=== PATIENT | male | born 1960 | race Caucasian/White ===

== ENCOUNTER 2018-12-04 18:59 | Inpatient (IN) | payer OTHER ==
--- NOTE | 2018-12-04 20:56 | PDOC ---
Attending Attestation - Resident Resident Name: Maria Fernanda Norris - ED Attending Attestation I have performed the following: I have examined & evaluated the patient, The case was reviewed & discussed with the resident, I agree w/resident's findings & plan, Exceptions are as noted - Medical Decision Making 12/04/18 23:[address] Lalo Lindsey and this pt was admitted to med/surg <Patti Dong - Last Filed: 12/04/18 23:14> - HPI HPI: 12/04/18 23:11 The patient is a 57 year old male with a history of lymphedema, DM, HLD, HTN, DVT, and depression who presents to the emergency department for evaluation of left lower extremity pain with redness and fever. Patient reports a 4 day history of fever. He reports increasing left leg redness and pain with minimal discharge. Patient states he uses his pumps and compression stockings. He endorses a several day history of shortness of breath and subjective chills as well as fevers. Denies chest pain, nausea, diarrhea, vomiting, dysuria, or headache. - Physicial Exam PE: 12/04/18 23:11 wnwd 57 y/o male in no acute distress head ncat neck supple Heart RRR. No gallops, murmurs, or rubs. lungs clear to auscultation bilaterally abd soft,nontender ext (+)Chronic venous stasis in both legs, (+)Lymphedema in both legs. (+)L leg and foot swollen, erythematous and tender. MAEx4 skin warm and dry,no rashes neuro A&Ox3,no gross focal neuro deficits - Medical Decision Making 12/04/18 23:11 Documentation prepared by Robert Berrios, acting as medical recruiter for Patti Dong MD. 12/04/18 23:[address] Lalo Lindsey at 23:14. <Robert Berrios - Last Filed: 12/04/18 23:26>
[2018-12-04] MEDS ORDERED: PIPERACILLIN/TAZOB 3.375 GM 3.375 GM in DEXTROSE 5%-WATER - 50 ML IVPB ONE (21:07)
[2018-12-04] MEDS ORDERED: VANCOMYCIN 1,000 MG in DEXTROSE 5%-WATER - 250 ML IVPB ONE (21:08)
--- NOTE | 2018-12-04 21:17 | PDOC ---
History of Present Illness - General Chief Complaint: Edema Stated Complaint: LT LEG PROBLEM Time Seen by Provider: 12/04/18 20:26 History Source: Patient - History of Present Illness Initial Comments: 12/04/18 21:12 Patient is a 57 y/o male with a history of lymphadema, HLD, DM, depression, HTN , and DVT who presents for fever and skin weeping. Patient notes he had fever over the weekend. He felt behind his left leg and noted it was oozing a bit. He followed up with wound care a month and a half ago. He regularly uses his pumps and compression stockings. He notes he hasn't had an episode of cellulitis for two years. He reports he has also been more short of breath recently. Denies chest pain, nausea, diarrhea, vomiting, dysuria, or headache. Past History - Past Medical History Allergies/Adverse Reactions: Allergies Allergy/AdvReac Type Severity Reaction Status Date / Time No Known Allergies Allergy Verified 12/04/18 19:06 Home Medications: Ambulatory Orders Hydrochlorothiazide [Hctz -] 25 mg PO DAILY #0 tablet 01/30/16 Rivaroxaban [Xarelto] 15 mg PO BID #0 tablet 01/30/16 Lisinopril [Prinivil] 1 tab PO DAILY 06/04/18 Metformin HCl [Glucophage] 1 tab PO DAILY 06/04/18 Rosuvastatin [Crestor -] 1 tab PO DAILY 06/04/18 Anemia: No Asthma: No Cancer: No Cardiac Disorders: No CVA: No COPD: No CHF: No Dementia: No Diabetes: Yes GI Disorders: No Disorders: No HTN: Yes Hypercholesterolemia: Yes Liver Disease: No Seizures: No Thyroid Disease: No - Suicide/Smoking/Psychosocial Hx Smoking History: Never smoked Have you smoked in the past 12 months: No Hx Alcohol Use: No Drug/Substance Use Hx: No Substance Use Type: None Hx Substance Use Treatment: No Review of Systems - Review of Systems Constitutional: Yes: Fever. No: Chills Respiratory: Yes: Shortness of Breath. No: Cough Cardiac (ROS): No: Chest Pain, Palpitations ABD/GI: No: Abdominal Distended, Diarrhea, Nausea, Vomiting : No: Burning Integumentary: Yes: Erythema Neurological: No: Headache, Numbness *Physical Exam - Vital Signs Last Vital Signs Temp Pulse Resp BP Pulse Ox 97.9 F 93 H 28 H 119/74 93 L 12/04/18 19:06 12/04/18 19:06 12/04/18 19:06 12/04/18 19:06 12/04/18 19:06 - Physical Exam Comments: 12/04/18 21:18 GENERAL: A&O x3, no acute distress, morbid obestity EYES: EOMI HEART: RRR, no murmurs, rubs, or gallops LUNGS: CTAL B/L ABD: soft, non tender, non distended EXTREMITIES: extensive non pitting edema L>R, pulses not felt, left foot warm and erythematous, back left ankle with skin weeping and erythema ED Treatment Course - LABORATORY CBC & Chemistry Diagram: 12/06/18 07:30 12/06/18 07:30 - RADIOLOGY Radiology Studies Ordered: Category Date Time Status CXRPORT [CHEST X-RAY PORTABLE*] [RAD] Stat Radiology 12/04/18 20:45 Ordered Medical Decision Making - Medical Decision Making 12/04/18 21:20 Vanc and Zosyn for cellulitis, f/u CBC and CMP, CXR for SOB 12/04/18 22:08 vitals satble WBC 13, CXR unlikely infiltrates will admit to PCP Dr. Lindsey *DC/Admit/Observation/Transfer Diagnosis at time of Disposition: Cellulitis of left leg - Discharge Dispostion Decision to Admit order: Yes - Referrals - Patient Instructions - Post Discharge Activity
[2018-12-04] MEDS ORDERED: PIPERACILLIN/TAZOB 3.375 GM 3.375 GM/50 ML BAG IVPB ONE (21:35)
[2018-12-04] MEDS ORDERED: VANCOMYCIN 1 GRAM (PRE-DOCKED) 1,000 MG/250 ML BAG IVPB ONE (21:35)
[2018-12-04 21:44] LABS: HEMATOCRIT 38.6 % (35.4-49); HEMOGLOBIN 12.9 GM/dL (11.7-16.9); MCH 27.8 pg (25.7-33.7); MCHC 33.3 g/dl (32.0-35.9); MEAN CELL VOLUME 83.5 fl (80-96); MEAN PLT VOLUME 8.7 fl (7.5-11.1); PLATELET COUNT 194 K/MM3 (134-434); RBC 4.62 M/mm3 (4.00-5.60); WHITE BLOOD COUNT 13.6 K/mm3 (4.0-10.0)
[2018-12-04 21:56] LABS: INR 1.48 (0.83-1.09); PROTHROMBIN TIME (PATIENT) 17.5 SEC (9.7-13.0)
[2018-12-04 22:04] LABS: ALBUMIN 2.8 g/dl (3.4-5.0); ALK PHOS 58 U/L (45-117); ANION GAP 6 MMOL/L (8-16); BILIRUBIN,TOTAL 0.3 mg/dL (0.2-1); BLOOD UREA NITROGEN 23 mg/dL (7-18); CALCIUM 8.1 mg/dL (8.5-10.1); CHLORIDE 102 mmol/L (98-107); CO2 30 mmol/L (21-32); CREATININE 1.1 mg/dL (0.55-1.3); GLUCOSE,RANDOM 118 mg/dL (74-106); POTASSIUM 4.1 mmol/L (3.5-5.1); SGOT/AST 23 U/L (15-37); SGPT/ALT 27 U/L (13-61); SODIUM 138 mmol/L (136-145); TOT PROT 6.5 g/dl (6.4-8.2)
[2018-12-04] MEDS ORDERED: HYDROCHLOROTHIAZIDE 25 MG TABLET (FP) PO ONE (23:31)
[2018-12-04] MEDS ORDERED: ACETAMINOPHEN 325 MG TABLET (FP) PO PRN (23:59)
[2018-12-05] MEDS ORDERED: HYDROCHLOROTHIAZIDE 25 MG TABLET (FP) ONE (00:15)
[2018-12-05 03:11] VITALS: BMI 60.6
[2018-12-05] MEDS ORDERED: PIPERACILLIN/TAZOBACTAM 3.375 GM VIAL IVPB ONE (05:28)
[2018-12-05] MEDS ORDERED: DEXTROSE 5%-WATER - 50 ML IVPB ONE (05:28)
[2018-12-05] MEDS ORDERED: PIPERACILLIN/TAZOB 3.375 GM 3.375 GM in DEXTROSE 5%-WATER - 50 ML IVPB ONE (06:00)
[2018-12-05] MEDS: metFORMIN HCL 500 MG TABLET (FP) PO SCH ×2 (06:21→17:13)
[2018-12-05 07:22] LABS: HEMATOCRIT 39.4 % (35.4-49); MCH 27.9 pg (25.7-33.7); MCHC 33.1 g/dl (32.0-35.9); MEAN CELL VOLUME 84.1 fl (80-96); MEAN PLT VOLUME 9.3 fl (7.5-11.1); PLATELET COUNT 191 K/MM3 (134-434); RBC 4.68 M/mm3 (4.00-5.60); RDW 16.3 % (11.9-15.9); WHITE BLOOD COUNT 13.9 K/mm3 (4.0-10.0)
[2018-12-05 07:41] LABS: ALBUMIN 2.8 g/dl (3.4-5.0); ALK PHOS 56 U/L (45-117); ANION GAP 7 MMOL/L (8-16); BILIRUBIN,TOTAL 0.4 mg/dL (0.2-1); BLOOD UREA NITROGEN 20 mg/dL (7-18); CALCIUM 8.7 mg/dL (8.5-10.1); CHLORIDE 99 mmol/L (98-107); CO2 30 mmol/L (21-32); GLUCOSE,RANDOM 140 mg/dL (74-106); POTASSIUM 3.6 mmol/L (3.5-5.1); SGOT/AST 20 U/L (15-37); SGPT/ALT 29 U/L (13-61); SODIUM 136 mmol/L (136-145); TOT PROT 6.7 g/dl (6.4-8.2)
--- NOTE | 2018-12-05 08:17 | CONSULT ---
- Consultation REQUESTING PROVIDER: CONSULT REQUEST: We have been asked to surgically evaluate this patient for ( cellulitis/dvt). PCP:Lalo Lindsey HISTORY OF PRESENT ILLNESS: 57 y/o M w/ PMHx lymphadema, HLD, DM, depression, HTN, and h/o DVT (axillary/femoral) now a/w fever and LLE cellulitis/skin weeping. Pt reports subjective fevers over the weekend. States he noted increasing swelling in his LLE as well as some oozing. Pt is a wound care patient and follows with Dr Magdaleno, last seen a month and a half ago (LLE treated with Calcium Alginate). Reports regular use of his lymphadema pump and compression stockings. Has h/o 2 prior admissions for IV abx for cellulitis over the past 2-3 years. Denies chest pain, nausea, diarrhea, vomiting, dysuria , or headache. Has had some sob over the past few days. PMHx: as above PSHx: denies Home Medications Medication Instructions Recorded Hydrochlorothiazide [Hctz -] 25 mg PO DAILY #0 tablet 01/30/16 Rivaroxaban [Xarelto] 15 mg PO BID #0 tablet 01/30/16 Lisinopril [Prinivil] 1 tab PO DAILY 06/04/18 Metformin HCl [Glucophage] 1 tab PO DAILY 06/04/18 Rosuvastatin [Crestor -] 1 tab PO DAILY 06/04/18 Allergies Allergy/AdvReac Type Severity Reaction Status Date / Time No Known Allergies Allergy Verified 12/04/18 19:06 REVIEW OF SYSTEMS: CONSTITUTIONAL: +fever CARDIOVASCULAR: Absent: chest pain, syncope RESPIRATORY: Absent: cough +shortness of breath GASTROINTESTINAL: Absent: abdominal pain PHYSICAL EXAM: GENERAL: Awake, alert, and fully oriented, in no acute distress. HEAD: Normal with no signs of trauma. LOWER EXTREMITIES: RLE with 2+ pitting edema to knee, no erythema no open wounds. LLE with edema and erythema from foot to mid calf, approx 4x4cm superficial ulcer to L lateral distal calf with minimal oozing. No crepitus, no palpable collections. Neuro: 5/5 b/l dorsi/plantar flexion, silt b/l. Vasc: Unable to appreciate pulses due to edema, feet warm, well perfused. Vital Signs Temperature 98.1 F 12/05/18 06:00 Pulse Rate 87 12/05/18 06:00 Respiratory Rate 20 12/05/18 06:00 Blood Pressure 129/58 L 12/05/18 06:00 O2 Sat by Pulse Oximetry (%) 92 L 12/05/18 02:45 Lab Results WBC 13.9 K/mm3 (4.0-10.0) H 12/05/18 06:00 RBC 4.68 M/mm3 (4.00-5.60) 12/05/18 06:00 Hgb 13.0 GM/dL (11.7-16.9) 12/05/18 06:00 Hct 39.4 % (35.4-49) 12/05/18 06:00 MCV 84.1 fl (80-96) 12/05/18 06:00 MCHC 33.1 g/dl (32.0-35.9) 12/05/18 06:00 RDW 16.3 % (11.9-15.9) H 12/05/18 06:00 Plt Count 191 K/MM3 (134-434) 12/05/18 06:00 Sodium 136 mmol/L (136-145) 12/05/18 06:00 Potassium 3.6 mmol/L (3.5-5.1) 12/05/18 06:00 Chloride 99 mmol/L (98-107) 12/05/18 06:00 Carbon Dioxide 30 mmol/L (21-32) 12/05/18 06:00 Anion Gap 7 MMOL/L (8-16) L 12/05/18 06:00 BUN 20 mg/dL (7-18) H 12/05/18 06:00 Creatinine 1.0 mg/dL (0.55-1.3) 12/05/18 06:00 Random Glucose 140 mg/dL (74-106) H 12/05/18 06:00 Calcium 8.7 mg/dL (8.5-10.1) 12/05/18 06:00 INR 1.48 (0.83-1.09) H 12/04/18 20:30 A/P: 57 y/o M w/ PMHx lymphadema, HLD, DM, depression, HTN, and h/o DVT ( axillary/femoral) now a/w fever and LLE cellulitis/skin weeping. LLE with cellulitis, skin weeping from superficial LLE wound. Afebrile with leukocytosis 13.9k. Venous duplex with no definite sonographic evidence of LLE DVT though PT vein was not visualized. -Continue Iv abx per ID -Strict LLE elevation while at rest -Calcium alginate to LLE wound -May repeat duplex once edema has subsided if concern for DVT (pt is on Xarelto) above d/w attending Dr Magdaleno
--- NOTE | 2018-12-05 09:35 | EKG ---
Test Reason : Blood Pressure : / mmHG Vent. Rate : 088 BPM Atrial Rate : 088 BPM P-R Int : 178 ms QRS Dur : 158 ms QT Int : 402 ms P-R-T Axes : 027 -43 084 degrees QTc Int : 486 ms NORMAL SINUS RHYTHM POSSIBLE LEFT ATRIAL ENLARGEMENT LEFT AXIS DEVIATION LEFT BUNDLE BRANCH BLOCK ABNORMAL ECG WHEN COMPARED WITH ECG OF 27-JAN-2016 10:18, NO SIGNIFICANT CHANGE WAS FOUND Confirmed by FOREIGN CHIRINOS, SELVIN ([id number]) on 12/05/2018 9:34:49 AM Referred By: Confirmed By:SELVIN CARRASQUILLO MD
[2018-12-05] MEDS ORDERED: ASPIRIN 81 MG CHEWABLE TABLETS PO SCH (10:00)
[2018-12-05] MEDS: ASPIRIN COATED 81 MG TABLET.EC PO SCH (10:03)
[2018-12-05] MEDS: LISINOPRIL 5 MG TABLET (FP) PO SCH (10:03)
[2018-12-05] MEDS ORDERED: PT OWN MED DRAWER 7, Y5N ONE (10:51)
[2018-12-05] MEDS: ALBUTEROL SO4 8 GM HFA INHALER IH PRN (10:55)
[2018-12-05] MEDS ORDERED: DEXTROSE 5%-WATER 100 ML IVPB ONE ×2 (10:56→17:02)
[2018-12-05] MEDS ORDERED: PIPERACILLIN/TAZOBACTAM 4.5 GM VIAL IVPB ONE ×2 (10:56→17:02)
[2018-12-05] MEDS: PIPERACILLIN/TAZOB 4.5 GM 4.5 GM in DEXTROSE 5%-WATER 100 ML IVPB SCH ×2 (10:58→17:14)
[2018-12-05] MEDS ORDERED: VANCOMYCIN HCL 1,500 MG in DEXTROSE 5%-WATER - 250 ML IVPB SCH (11:00)
--- NOTE | 2018-12-05 11:05 | PN ---
Progress Note (short form) - Note Progress Note: ID consult dictated 57 yo man morbidly obese with chronic lymphedema last hospitalized in 2016 for RLE DVT no recent admissions for cellulitis no recent outpatient antiibotics developed fever and chills Monday/Monday on Monday he noted his left calf was red and swollen he saw his PMD who referred him to the hospital no further fevers In ED noted to have swollen RLE with erythema WBC 13k given vancomycin and zosyn no blood cultures done cellulilis of the LLE no history of MRSA plan vancomycin and zosyn- prior cultures of LLE have included enterobacter, pseudomonas, group b strep and MSSA will order blood cultures as well suspect resolution will be slow given lymphedema Problem List - Problems (1) Cellulitis of left leg Code(s): L03.116 - CELLULITIS OF LEFT LOWER LIMB (2) Lymphedema Code(s): I89.0 - LYMPHEDEMA, NOT ELSEWHERE CLASSIFIED (3) Obesity Code(s): E66.9 - OBESITY, UNSPECIFIED Qualifiers: Body mass index: BMI 60.0-69.9
[2018-12-05] MEDS ORDERED: PHYTONADIONE 10 MG/1 ML AMP IM ONE (11:36)
[2018-12-05] MEDS: VANCOMYCIN HCL 1,500 MG in DEXTROSE 5%-WATER - 500 ML IVPB SCH ×2 (12:02→22:43)
--- NOTE | 2018-12-05 12:35 | HP ---
Admitting History and Physical - Admission Chief Complaint: pt came my office lt leg swelling pain 4 days. no other coplaints History Source: Family Member Limitations to Obtaining History: Other ( pickwicking syndrome) - Past Medical History Cardiovascular: Yes: HTN, Other (aortic anerysm 5 cm) Pulmonary: Yes: COPD, Sleep Apnea, Other (bob) Infectious Disease: Yes: Other (lt ;leg cellulitis) Musculoskeletal: Yes: Other (lymphodema) Endocrine: Yes: Diabetes Mellitus - Past Surgical History Past Surgical History: Yes: None - Smoking History Smoking history: Never smoked Have you smoked in the past 12 months: No - Alcohol/Substance Use Hx Alcohol Use: No History of Substance Use: reports: None - Social History ADL: Independent History of Recent Travel: No Home Medications - Allergies Allergies/Adverse Reactions: Allergies Allergy/AdvReac Type Severity Reaction Status Date / Time No Known Allergies Allergy Verified 12/04/18 19:06 - Home Medications Home Medications: Ambulatory Orders Hydrochlorothiazide [Hctz -] 25 mg PO DAILY #0 tablet 01/30/16 Rivaroxaban [Xarelto] 15 mg PO BID #0 tablet 01/30/16 Lisinopril [Prinivil] 1 tab PO DAILY 06/04/18 Metformin HCl [Glucophage] 1 tab PO DAILY 06/04/18 Rosuvastatin [Crestor -] 1 tab PO DAILY 06/04/18 Family Disease History - Family Disease History Family History: Unremarkable Review of Systems - Review of Systems Respiratory: reports: Snoring, SOB, SOB on Exertion Musculoskeletal: reports: Other (lt leg cellulitis) Physical Examination Vital Signs: Vital Signs Temperature 98.0 F 12/05/18 09:00 Pulse Rate 80 12/05/18 09:00 Respiratory Rate 20 12/05/18 09:00 Blood Pressure 107/65 12/05/18 09:00 O2 Sat by Pulse Oximetry (%) 92 L 12/05/18 02:45 Constitutional: Yes: Obese Eyes: Yes: WNL HENT: Yes: WNL Neck: Yes: WNL Respiratory: Yes: SOB on Exertion Gastrointestinal: Yes: WNL ...Rectal Exam: Yes: Deferred Renal/: Yes: WNL Breast(s): Yes: WNL, Skin Changes Extremities: Yes: Other (lt leg swelling on top of lymphodema) Edema: Yes Edema: LLE: 4+, RLE: 3+ Peripheral Pulses WNL: Yes Peripheral Pulses: Left Radial: 2+, Right Radial: 2+, Left Doralis Pedis: 2+, Right Dorsalis Pedis: 2+, Left Femoral: 2+, Right Femoral: 2+ Integumentary: Yes: WNL Wound/Incision: Yes: Other (lt leg ??weeping) Neurological: Yes: WNL ...Motor Strength: WNL Psychiatric: Yes: WNL Labs: CBC, BMP 12/05/18 06:00 12/05/18 06:00 Assessment/Plan vasc id to see pt cont lt leg tx and atibiotics iv cont all meds ay home xeralto dvt tx chk labs in am give vit k im for incresed inr???
--- NOTE | 2018-12-05 13:13 | PN ---
Progress Note, Physician History of Present Illness: pt had pos dna stool very obese needs to be scoped inpt spoke to dr sadi hale pnd to be home for pt cont all tx as is - Current Medication List Current Medications: Active Medications Acetaminophen (Tylenol -) 650 mg PO Q4H PRN PRN Reason: FEVER Albuterol Sulfate (Ventolin Hfa Inhaler -) 2 puff IH Q4H PRN PRN Reason: SHORT OF BREATH/WHEEZING Last Admin: 12/05/18 10:55 Dose: 2 puff Aspirin (Ecotrin -) 81 mg PO DAILY [facility]O Last Admin: 12/05/18 10:03 Dose: 81 mg Piperacillin Sod/Tazobactam (Sod 4.5 gm/ Dextrose) 100 mls @ 200 mls/hr IVPB Q8H-IV MAYO; Protocol Last Admin: 12/05/18 10:58 Dose: 200 mls/hr Vancomycin HCl 1,500 mg/ (Dextrose) 500 mls @ 125 mls/hr IVPB Q12H MAYO; Protocol Last Admin: 12/05/18 12:02 Dose: 125 mls/hr Lisinopril (Prinivil) 5 mg PO DAILY [facility] Last Admin: 12/05/18 10:03 Dose: 5 mg Metformin HCl (Glucophage -) 1,000 mg PO BID@0700,1630 MAYO Last Admin: 12/05/18 06:21 Dose: 1,000 mg Rivaroxaban (Xarelto -) 20 mg PO DAILY@1800 MAYO Rosuvastatin Calcium (Crestor -) 20 mg PO HS MAYO - Objective Vital Signs: Vital Signs Temperature 98.0 F 12/05/18 09:00 Pulse Rate 80 12/05/18 09:00 Respiratory Rate 20 12/05/18 09:00 Blood Pressure 107/65 12/05/18 09:00 O2 Sat by Pulse Oximetry (%) 92 L 12/05/18 02:45 Labs: CBC, BMP 12/05/18 06:00 12/05/18 06:00 INR, PTT INR 1.48 (0.83-1.09) H 12/04/18 20:30
--- NOTE | 2018-12-05 14:03 | CONS ---
DATE OF CONSULTATION: DATE OF DICTATION: 12/05/2018 INFECTIOUS DISEASE CONSULTATION REQUESTED BY: Lalo Lindsey MD This is a 57-year-old man who is morbidly obese. He has chronic lymphedema. He has a history of right lower extremity DVT in the past. He has a history of cellulitis of his legs. Last admission for this was 2 years ago in 2016. He developed fevers and chills over the weekend, Monday into Monday. On Monday, he noted that his left leg and calf were red and swollen. He went to see his PMD who advised admission. He is currently resting comfortably. He denies any cough, any nausea, vomiting, diarrhea, or dysuria. His fevers reports have resolved. He notes that he is slightly more short of breath than usual. ALLERGIES: He has no known drug allergies. MEDICATIONS: Include hydrochlorothiazide, Xarelto, Prinivil, Glucophage, and Crestor. PAST MEDICAL HISTORY: Notable for diabetes, hypertension, hypercholesterolemia, and morbid obesity. REVIEW OF SYSTEMS: As per HPI. There is no history of any travel. SOCIAL HISTORY: Lives with his daughter. They have cats. He has had cat scratches on his arms but not on his legs. PHYSICAL EXAMINATION: Vital Signs: Temperature is 98.4, pulse of 80, blood pressure 107/66, respiratory rate is 20, saturating 92% on room air. He weighs 175 kg. HEENT: He is normocephalic. His eyes are anicteric. Neck: Supple. Lungs: Diminished breath sounds at the bases. Heart: He has distant heart sounds. Abdomen: His abdomen is large. I cannot appreciate any organomegaly. Extremities: Left leg is more swollen than the right below the knee. He has diffuse erythema and swelling extending to his foot. LABORATORY DATA: Notable for white count of 13.9, hemoglobin 13, platelets are 191. INR is 1.4. BUN 20, creatinine 1 with normal LFTs. IMAGING STUDIES: Duplex of the leg was done that shows no DVT. IN SUMMARY: This is a morbidly obese 57-year-old man with chronic lymphedema of his legs. He does use a lymphedema pump at home twice a day for the last year which he says has been very helpful. Fever over the weekend with acute onset of cellulitis of the left lower extremity. There is no history of methicillin-resistant Staphylococcus aureus, but given the acute onset of fever in this setting and the erythema and edema, we will cover for methicillin-resistant Staphylococcus aureus as well. He was given vancomycin and Zosyn in the emergency room. No blood cultures were done. I would suggest at this time we continue vancomycin and Zosyn. Prior cultures have included Enterobacter pseudomonas, group B streptococcus, and Staphylococcus. We will order blood cultures. I suspect the resolution of his cellulitis will be quite slow given the degree of lymphedema. He does have an area of maceration behind his left lower leg in the area of the ankle, but there are no open lesions at this time. Further recommendations to follow. Alma Rosa [id number]
[2018-12-05] MEDS: RIVAROXABAN 20 MG TABLET PO SCH (17:00)
[2018-12-05] MEDS: ROSUVASTATIN CA 20 MG TABLET (FP) PO SCH (21:00)
[2018-12-06] MEDS ORDERED: DEXTROSE 5%-WATER 100 ML IVPB ONE ×4 (00:47→23:45)
[2018-12-06] MEDS ORDERED: PIPERACILLIN/TAZOBACTAM 4.5 GM VIAL IVPB ONE ×4 (00:47→23:44)
[2018-12-06] MEDS: PIPERACILLIN/TAZOB 4.5 GM 4.5 GM in DEXTROSE 5%-WATER 100 ML IVPB SCH ×3 (03:00→17:22)
[2018-12-06] MEDS: metFORMIN HCL 500 MG TABLET (FP) PO SCH ×2 (06:43→17:22)
[2018-12-06 08:23] LABS: BASO % 0.7 % (0-2.0); HEMATOCRIT 41.5 % (35.4-49); HEMOGLOBIN 12.8 GM/dL (11.7-16.9); MCH 26.1 pg (25.7-33.7); MEAN CELL VOLUME 84.5 fl (80-96); MONO % 14.2 % (3.8-10.2); NEUT % 74.1 % (42.8-82.8); PLATELET COUNT 203 K/MM3 (134-434); RBC 4.91 M/mm3 (4.00-5.60); RDW 17.2 % (11.9-15.9); WHITE BLOOD COUNT 13.9 K/mm3 (4.0-10.0)
[2018-12-06 08:46] LABS: ANION GAP 4 MMOL/L (8-16); BLOOD UREA NITROGEN 19 mg/dL (7-18); CHLORIDE 99 mmol/L (98-107); CO2 31 mmol/L (21-32); CREATININE 0.9 mg/dL (0.55-1.3); GLUCOSE,RANDOM 111 mg/dL (74-106); POTASSIUM 4.3 mmol/L (3.5-5.1); SODIUM 135 mmol/L (136-145)
--- NOTE | 2018-12-06 08:58 | CON.GI ---
Consult Consult Specialty:: GI Referred by:: Dr. Lalo Lindsey Reason for Consultation:: In-patient colonoscopy - History of Present Illness History of Present Illness: Patient is a 57 y/o male with past medical history of HTN, morbid obesity, aortic aneursym 5cm, COPD, sleep apnea, Lymphedema, DM. Patient was admitted to [facility] for Lt leg cellulitis. Consulted for possible in-patient colonoscopy due to patient extensive medical history. Patient has not had a previous colonoscopy. As for family history patient denies stomach cancer but believes father might have had Colon CA. Patient complains of rectal bleeding noted when straining with BM and blood in stool associated with rectal pain with last episode being 1 week ago. Patient denies dysphagia, heartburn, nausea, vomiting , abdominal pain. Denies melena or abnormal weight loss. - History Source History Provided By: Patient Limitations to Obtaining History: No Limitations - Past Medical History Cardio/Vascular: Yes: HTN, Other (aortic anerysm 5 cm) Pulmonary: Yes: COPD, Sleep Apnea, Other (bob) Infectious Disease: Yes: Other (lt ;leg cellulitis) Musculoskeletal: Yes: Other (lymphodema) Endocrine: Yes: Diabetes Mellitus - Past Surgical History Past Surgical History: Yes: None - Alcohol/Substance Use Hx Alcohol Use: No History of Substance Use: reports: None - Smoking History Smoking history: Never smoked Have you smoked in the past 12 months: No - Social History ADL: Independent History of Recent Travel: No Home Medications - Allergies Allergies/Adverse Reactions: Allergies Allergy/AdvReac Type Severity Reaction Status Date / Time No Known Allergies Allergy Verified 12/04/18 19:06 - Home Medications Home Medications: Ambulatory Orders Hydrochlorothiazide [Hctz -] 25 mg PO DAILY #0 tablet 01/30/16 Rivaroxaban [Xarelto] 15 mg PO BID #0 tablet 01/30/16 Lisinopril [Prinivil] 1 tab PO DAILY 06/04/18 Metformin HCl [Glucophage] 1 tab PO DAILY 06/04/18 Rosuvastatin [Crestor -] 1 tab PO DAILY 06/04/18 Family Disease History - Family Disease History Family Disease History: CA: Father (possible Colon CA) Review of Systems - Review of Systems Constitutional: reports: No Symptoms Eyes: reports: No Symptoms HENT: reports: No Symptoms Neck: reports: No Symptoms Cardiovascular: reports: No Symptoms Respiratory: reports: SOB Gastrointestinal: reports: Rectal Bleeding Genitourinary: reports: No Symptoms Breasts: reports: No Symptoms Reported Musculoskeletal: reports: No Symptoms Integumentary: reports: Other (cellulitis) Neurological: reports: No Symptoms Endocrine: reports: No Symptoms Hematology/Lymphatic: reports: No Symptoms Psychiatric: reports: No Symptoms Physical Exam-GI Vital Signs: Vital Signs Temperature 98.3 F 12/06/18 06:22 Pulse Rate 73 12/06/18 06:22 Respiratory Rate 22 H 12/06/18 06:22 Blood Pressure 136/78 12/06/18 06:22 O2 Sat by Pulse Oximetry (%) 90 L 12/05/18 21:00 Constitutional: Yes: No Distress, Calm, Obese Eyes: Yes: Conjunctiva Clear HENT: Yes: Atraumatic Cardiovascular: Yes: Regular Rate and Rhythm Respiratory: Yes: Diminished, On Nasal O2, SOB on Exertion Gastrointestinal Inspection: Yes: WNL. No: Ascites, Distention, Hernia, Scars, Other ...Auscultate: Yes: Normoactive Bowel Sounds. No: Hyperactive Bowel Sounds, Hypoactive Bowel Sounds, No Bowel Sounds, Other ...Palpate: Yes: Soft. No: Firm/Rigid, Guarding, Hepatomegaly, Mass, Pulsatile Mass, Splenomegaly, Tenderness, Tenderness, Epigastium, Tenderness, Rebound, Other ...Percussion: Yes: Tympanitic. No: Dullness, Fluid Wave, Other Edema: Yes (lower extremities) Neurological: Yes: Alert, Oriented Psychiatric: Yes: Alert, Oriented Labs: CBC, BMP 12/06/18 07:30 12/06/18 07:30 INR, PTT INR 1.48 (0.83-1.09) H 12/04/18 20:30 Active Medications Generic Name Dose Route Start Last Admin Trade Name Freq PRN Reason Stop Dose Admin Acetaminophen 650 mg 12/04/18 23:59 Tylenol - PO Q4H PRN FEVER Albuterol Sulfate 2 puff 12/04/18 23:31 12/05/18 10:55 Ventolin Hfa Inhaler - IH 2 puff Q4H PRN Administration SHORT OF BREATH/WHEEZING Aspirin 81 mg 12/05/18 10:00 12/05/18 10:03 Ecotrin - PO 81 mg DAILY MAYO Administration Piperacillin Sod/Tazobactam 100 mls @ 200 mls/hr 12/05/18 10:45 12/06/18 03: 00 Sod 4.5 gm/ Dextrose IVPB 200 mls/hr Q8H-IV MAYO Administration Protocol Vancomycin HCl 1,500 mg/ 500 mls @ 125 mls/hr 12/05/18 11:00 12/05/18 22:43 Dextrose IVPB 125 mls/hr Q12H MAYO Administration Protocol Lisinopril 5 mg 12/05/18 10:00 12/05/18 10:03 Prinivil PO 5 mg DAILY MAYO Administration Metformin HCl 1,000 mg 12/05/18 07:00 12/06/18 06:43 Glucophage - PO 1,000 mg BID@0700,1630 MAYO Administration Rivaroxaban 20 mg 12/05/18 18:00 12/05/18 17:00 Xarelto - PO Not Given DAILY@1800 MAYO Rosuvastatin Calcium 20 mg 12/05/18 22:00 12/05/18 21:00 Crestor - PO 20 mg HS MAYO Administration Problem List - Problems (1) Colon cancer screening Assessment/Plan: >Patient is scheduled for colonoscopy at [facility] on 12/23/[address] Carlos Perez Code(s): Z12.11 - ENCOUNTER FOR SCREENING FOR MALIGNANT NEOPLASM OF COLON
[2018-12-06] MEDS: LISINOPRIL 5 MG TABLET (FP) PO SCH (10:18)
[2018-12-06] MEDS: ASPIRIN COATED 81 MG TABLET.EC PO SCH (10:18)
[2018-12-06] MEDS: ALBUTEROL SO4 8 GM HFA INHALER IH PRN (10:30)
--- NOTE | 2018-12-06 10:45 | PN ---
Progress Note, Physician Chief Complaint: o 2 sat 80 at rest no o2 colon[facility] 3 16 [facility] pulm consult - Current Medication List Current Medications: Active Medications Acetaminophen (Tylenol -) 650 mg PO Q4H PRN PRN Reason: FEVER Albuterol Sulfate (Ventolin Hfa Inhaler -) 2 puff IH Q4H PRN PRN Reason: SHORT OF BREATH/WHEEZING Last Admin: 12/06/18 10:30 Dose: 2 puff Aspirin (Ecotrin -) 81 mg PO DAILY [facility] Last Admin: 12/06/18 10:18 Dose: 81 mg Piperacillin Sod/Tazobactam (Sod 4.5 gm/ Dextrose) 100 mls @ 200 mls/hr IVPB Q8H-IV [facility]; Protocol Last Admin: 12/06/18 10:18 Dose: 200 mls/hr Vancomycin HCl 1,500 mg/ (Dextrose) 500 mls @ 125 mls/hr IVPB Q12H [facility]; Protocol Last Admin: 12/05/18 22:43 Dose: 125 mls/hr Lisinopril (Prinivil) 5 mg PO DAILY [facility] Last Admin: 12/06/18 10:18 Dose: 5 mg Metformin HCl (Glucophage -) 1,000 mg PO BID@0700,1630 [facility] Last Admin: 12/06/18 06:43 Dose: 1,000 mg Rivaroxaban (Xarelto -) 20 mg PO DAILY@1800 [facility] Last Admin: 12/05/18 17:00 Dose: Not Given Rosuvastatin Calcium (Crestor -) 20 mg PO HS [facility] Last Admin: 12/05/18 21:00 Dose: 20 mg - Objective Vital Signs: Vital Signs Temperature 98.3 F 12/06/18 06:22 Pulse Rate 83 12/06/18 10:00 Respiratory Rate 20 12/06/18 10:00 Blood Pressure 127/75 12/06/18 10:00 O2 Sat by Pulse Oximetry (%) 90 L 12/05/18 21:00 Labs: CBC, BMP 12/06/18 07:30 12/06/18 07:30 INR, PTT INR 1.48 (0.83-1.09) H 12/04/18 20:30
--- NOTE | 2018-12-06 11:08 | CON.PULM ---
Consult Consult Specialty:: PULMONARY Referred by:: Dr Lindsey Reason for Consultation:: hypoxia - History of Present Illness Chief Complaint: leg swelling History of Present Illness: 57yo male with h/o HTN, DM, hyperlipidemia, lymphedema, h/o DVT who was admitted for fevers and leg swelling. Noted to have cellulitis, started on antibiotics. During admission, noted to be hypoxic on room air. He does not currently have home O2. He denies any history of asthma or COPD. He is a never smoker. He had a sleep study in April 2018 showing severe obstructive sleep apnea with AHI 81 and desaturations down to 67%. Has not received his CPAP yet, recommended settings 20cm H20 although still had apneic events on these settings. He denies shortness of breath or chest pain. No cough or wheezing. - History Source History Provided By: Patient, Medical Record Limitations to Obtaining History: No Limitations - Past Medical History Cardio/Vascular: Yes: HTN, Other (aortic anerysm 5 cm) Pulmonary: Yes: COPD, Sleep Apnea, Other (bob) Infectious Disease: Yes: Other (lt ;leg cellulitis) Musculoskeletal: Yes: Other (lymphodema) Endocrine: Yes: Diabetes Mellitus - Past Surgical History Past Surgical History: Yes: None - Alcohol/Substance Use Hx Alcohol Use: No History of Substance Use: reports: None - Smoking History Smoking history: Never smoked Have you smoked in the past 12 months: No - Social History ADL: Independent History of Recent Travel: No Home Medications - Allergies Allergies/Adverse Reactions: Allergies Allergy/AdvReac Type Severity Reaction Status Date / Time No Known Allergies Allergy Verified 12/04/18 19:06 - Home Medications Home Medications: Ambulatory Orders Hydrochlorothiazide [Hctz -] 25 mg PO DAILY #0 tablet 01/30/16 Rivaroxaban [Xarelto] 15 mg PO BID #0 tablet 01/30/16 Lisinopril [Prinivil] 1 tab PO DAILY 06/04/18 Metformin HCl [Glucophage] 1 tab PO DAILY 06/04/18 Rosuvastatin [Crestor -] 1 tab PO DAILY 06/04/18 Family Disease History - Family Disease History Family Disease History: CA: Father (possible Colon CA) Review of Systems - Review of Systems Constitutional: reports: Weakness. denies: Chills, Fever Eyes: denies: Recent Change in Vision HENT: denies: Nasal Congestion, Throat Pain Neck: denies: Stiffness, Tenderness Cardiovascular: reports: Edema. denies: Chest Pain, Palpitations, Shortness of Breath Respiratory: denies: Cough, Hemoptysis, Wheezing Gastrointestinal: denies: Abdominal Pain, Nausea, Vomiting Genitourinary: denies: Dysuria, Hematuria Neurological: denies: Dizziness, Headache Endocrine: denies: Unexplained Weight Loss Physical Exam Vital Sings: Vital Signs Temperature 98.3 F 12/06/18 06:22 Pulse Rate 83 12/06/18 10:00 Respiratory Rate 20 12/06/18 10:00 Blood Pressure 127/75 12/06/18 10:00 O2 Sat by Pulse Oximetry (%) 90 L 12/05/18 21:00 Constitutional: Yes: Calm Eyes: Yes: Conjunctiva Clear, EOM Intact HENT: Yes: Atraumatic, Normocephalic Neck: Yes: Supple, Trachea Midline Cardiovascular: Yes: Regular Rate and Rhythm Respiratory: Yes: Diminished (distant breath sounds). No: Wheezes ...Clubbing: No Gastrointestinal: Yes: Normal Bowel Sounds, Soft, Abdomen, Obese. No: Tenderness Edema: Yes Neurological: Yes: Alert, Oriented Labs: CBC, BMP 12/06/18 07:30 12/06/18 07:30 Imaging - Results Chest X-ray: Report Reviewed, Image Reviewed (cardiomegaly, no infiltrates) Problem List - Problems (1) Cellulitis of left leg Code(s): L03.116 - CELLULITIS OF LEFT LOWER LIMB (2) Obesity Code(s): E66.9 - OBESITY, UNSPECIFIED Qualifiers: Body mass index: BMI 60.0-69.9 (3) HTN (hypertension) Code(s): I10 - ESSENTIAL (PRIMARY) HYPERTENSION (4) Lymphedema Code(s): I89.0 - LYMPHEDEMA, NOT ELSEWHERE CLASSIFIED (5) Type 2 diabetes mellitus with other skin ulcer Code(s): E11.622 - TYPE 2 DIABETES MELLITUS WITH OTHER SKIN ULCER; L98.499 - NON -PRESSURE CHRONIC ULCER OF SKIN OF SITES W UNSP SEVERITY Assessment/Plan Cellulitis HTN DM Hyperlipidemia h/o DVT Morbid Obesity Severe Obstructive Sleep Apnea Likely Chronic Hypoxic Respiratory Failure Likely Obesity Hypoventilation Syndrome - continue antibiotics - will need home O2 to keep SpO2 >90% - check ABG - will need home CPAP or BiPAP pending above ABG - continue anticoagulation Thank you for this consult Albert Pierson MD
[2018-12-06] MEDS: VANCOMYCIN HCL 1,500 MG in DEXTROSE 5%-WATER - 500 ML IVPB SCH ×3 (11:13→22:31)
--- NOTE | 2018-12-06 17:06 | PN ---
Progress Note (short form) - Note Progress Note: no complaints Vital Signs Period Temp Pulse Resp BP Sys/Sanz Pulse Ox Last 24 Hr 97.5 F-98.3 F 73-83 20-22 117-142/55-78 90-93 cor-rrr lungs clear ext less erythema of the LLE CBC, BMP 12/06/18 07:30 12/06/18 07:30 Microbiology 12/05/18 11:20 Blood - Peripheral Venous Blood Culture - Preliminary NO GROWTH OBTAINED AFTER 24 HOURS, INCUBATION TO CONTINUE FOR 4 DAYS. 12/05/18 11:30 Blood - Peripheral Venous Blood Culture - Preliminary NO GROWTH OBTAINED AFTER 24 HOURS, INCUBATION TO CONTINUE FOR 4 DAYS. a/p cellulilis of the LLE improving continue vanco/zosyn for vanco trough in am morbid obesity OSAS suspect resolution will be slow given lymphedema Problem List - Problems (1) Cellulitis of left leg Code(s): L03.116 - CELLULITIS OF LEFT LOWER LIMB (2) Lymphedema Code(s): I89.0 - LYMPHEDEMA, NOT ELSEWHERE CLASSIFIED (3) Obesity Code(s): E66.9 - OBESITY, UNSPECIFIED Qualifiers: Body mass index: BMI 60.0-69.9
[2018-12-06] MEDS: RIVAROXABAN 20 MG TABLET PO SCH (17:22)
[2018-12-06] MEDS: ROSUVASTATIN CA 20 MG TABLET (FP) PO SCH (22:14)
[2018-12-07] MEDS: PIPERACILLIN/TAZOB 4.5 GM 4.5 GM in DEXTROSE 5%-WATER 100 ML IVPB SCH ×3 (01:26→18:11)
[2018-12-07] MEDS: metFORMIN HCL 500 MG TABLET (FP) PO SCH ×2 (06:23→18:10)
[2018-12-07 08:01] LABS: INR 1.57 (0.83-1.09); PROTHROMBIN TIME (PATIENT) 18.6 SEC (9.7-13.0)
[2018-12-07 08:02] LABS: BASO % 0.2 % (0-2.0); EOS % 0.6 % (0-4.5); HEMATOCRIT 40.2 % (35.4-49); HEMOGLOBIN 12.6 GM/dL (11.7-16.9); LYMPH % 8.2 % (8-40); MCH 26.3 pg (25.7-33.7); MCHC 31.3 g/dl (32.0-35.9); MEAN CELL VOLUME 83.9 fl (80-96); MEAN PLT VOLUME 8.9 fl (7.5-11.1); MONO % 9.6 % (3.8-10.2); NEUT % 81.4 % (42.8-82.8); PLATELET COUNT 233 K/MM3 (134-434); RBC 4.79 M/mm3 (4.00-5.60); RDW 16.6 % (11.9-15.9); WHITE BLOOD COUNT 13.8 K/mm3 (4.0-10.0)
[2018-12-07 08:23] LABS: ANION GAP 9 MMOL/L (8-16); BLOOD UREA NITROGEN 16 mg/dL (7-18); CHLORIDE 98 mmol/L (98-107); CO2 30 mmol/L (21-32); CREATININE 0.9 mg/dL (0.55-1.3); GLUCOSE,RANDOM 120 mg/dL (74-106); POTASSIUM 4.1 mmol/L (3.5-5.1); SODIUM 137 mmol/L (136-145)
[2018-12-07] MEDS ORDERED: DEXTROSE 5%-WATER 100 ML IVPB ONE ×2 (09:27→18:05)
[2018-12-07] MEDS ORDERED: PIPERACILLIN/TAZOBACTAM 4.5 GM VIAL IVPB ONE ×2 (09:27→18:05)
[2018-12-07] MEDS: LISINOPRIL 5 MG TABLET (FP) PO SCH (09:29)
[2018-12-07] MEDS: ASPIRIN COATED 81 MG TABLET.EC PO SCH (09:29)
[2018-12-07] MEDS ORDERED: PT OWN MED DRAWER 7, Y5N ONE ×4 (12:04→21:28)
[2018-12-07] MEDS: VANCOMYCIN HCL 1,500 MG in DEXTROSE 5%-WATER - 500 ML IVPB SCH ×2 (13:04→22:27)
--- NOTE | 2018-12-07 13:23 | PN ---
Progress Note, Physician Chief Complaint: feels better vss lt leg slght improvment - Current Medication List Current Medications: Active Medications Acetaminophen (Tylenol -) 650 mg PO Q4H PRN PRN Reason: FEVER Albuterol Sulfate (Ventolin Hfa Inhaler -) 2 puff IH Q4H PRN PRN Reason: SHORT OF BREATH/WHEEZING Last Admin: 12/06/18 10:30 Dose: 2 puff Aspirin (Ecotrin -) 81 mg PO DAILY [facility] Last Admin: 12/07/18 09:29 Dose: 81 mg Piperacillin Sod/Tazobactam (Sod 4.5 gm/ Dextrose) 100 mls @ 200 mls/hr IVPB Q8H-IV [facility]; Protocol Last Admin: 12/07/18 09:29 Dose: 200 mls/hr Vancomycin HCl 1,500 mg/ (Dextrose) 500 mls @ 125 mls/hr IVPB Q12H [facility]; Protocol Last Admin: 12/07/18 13:04 Dose: 125 mls/hr Lisinopril (Prinivil) 5 mg PO DAILY [facility] Last Admin: 12/07/18 09:29 Dose: 5 mg Metformin HCl (Glucophage -) 1,000 mg PO BID@0700,1630 [facility] Last Admin: 12/07/18 06:23 Dose: 1,000 mg Rivaroxaban (Xarelto -) 20 mg PO DAILY@1800 [facility] Last Admin: 12/06/18 17:22 Dose: 20 mg Rosuvastatin Calcium (Crestor -) 20 mg PO HS [facility] Last Admin: 12/06/18 22:14 Dose: 20 mg - Objective Vital Signs: Vital Signs Temperature 98.1 F 12/07/18 09:24 Pulse Rate 84 12/07/18 09:24 Respiratory Rate 20 12/07/18 09:24 Blood Pressure 134/64 12/07/18 09:24 O2 Sat by Pulse Oximetry (%) 93 L 12/06/18 21:00 Constitutional: Yes: Well Nourished Eyes: Yes: WNL HENT: Yes: WNL Neck: Yes: WNL Cardiovascular: Yes: WNL Respiratory: Yes: On Nasal O2 Gastrointestinal: Yes: WNL ...Rectal Exam: Yes: Deferred Genitourinary: Yes: WNL Breast(s): Yes: WNL Musculoskeletal: Yes: WNL Extremities: Yes: Other (no change) Peripheral Pulses WNL: Yes Integumentary: Yes: WNL Wound/Incision: Yes: Clean/Dry Neurological: Yes: WNL ...Motor Strength: WNL Psychiatric: Yes: WNL Labs: CBC, BMP 12/07/18 07:00 12/07/18 07:00 INR, PTT INR 1.57 (0.83-1.09) H 12/07/18 07:00 Assessment/Plan add lama ics? inhaler pulm f/u cont axb as is
--- NOTE | 2018-12-07 13:49 | PN ---
Progress Note, Physician History of Present Illness: PULMONARY ALERT,COMFORTABLE,OOB-CHAIR,-RESP DISTRESS,O2 SAT 96% ON NASAL CANNULA - Current Medication List Current Medications: Active Medications Acetaminophen (Tylenol -) 650 mg PO Q4H PRN PRN Reason: FEVER Albuterol Sulfate (Ventolin Hfa Inhaler -) 2 puff IH Q4H PRN PRN Reason: SHORT OF BREATH/WHEEZING Last Admin: 12/06/18 10:30 Dose: 2 puff Aspirin (Ecotrin -) 81 mg PO DAILY [facility] Last Admin: 12/07/18 09:29 Dose: 81 mg Piperacillin Sod/Tazobactam (Sod 4.5 gm/ Dextrose) 100 mls @ 200 mls/hr IVPB Q8H-IV [facility]; Protocol Last Admin: 12/07/18 09:29 Dose: 200 mls/hr Vancomycin HCl 1,500 mg/ (Dextrose) 500 mls @ 125 mls/hr IVPB Q12H [facility]; Protocol Last Admin: 12/07/18 13:04 Dose: 125 mls/hr Lisinopril (Prinivil) 5 mg PO DAILY [facility] Last Admin: 12/07/18 09:29 Dose: 5 mg Metformin HCl (Glucophage -) 1,000 mg PO BID@0700,1630 [facility] Last Admin: 12/07/18 06:23 Dose: 1,000 mg Rivaroxaban (Xarelto -) 20 mg PO DAILY@1800 [facility] Last Admin: 12/06/18 17:22 Dose: 20 mg Rosuvastatin Calcium (Crestor -) 20 mg PO HS [facility] Last Admin: 12/06/18 22:14 Dose: 20 mg Tiotropium [place] (Spiriva Respimat) 2 puff IH DAILY [facility] - Objective Vital Signs: Vital Signs Temperature 98.1 F 12/07/18 09:24 Pulse Rate 84 12/07/18 09:24 Respiratory Rate 20 12/07/18 09:24 Blood Pressure 134/64 12/07/18 09:24 O2 Sat by Pulse Oximetry (%) 93 L 12/06/18 21:00 Constitutional: Yes: Obese Eyes: Yes: WNL HENT: Yes: WNL Neck: Yes: WNL Cardiovascular: Yes: Regular Rate and Rhythm, S1, S2 Respiratory: Yes: Diminished Gastrointestinal: Yes: Normal Bowel Sounds, Soft, Abdomen, Obese Extremities: Yes: WNL Edema: Yes Labs: CBC, BMP 12/07/18 07:00 12/07/18 07:00 INR, PTT INR 1.57 (0.83-1.09) H 12/07/18 07:00 Assessment/Plan Problem List - Problems (1) Cellulitis of left leg Code(s): L03.116 - CELLULITIS OF LEFT LOWER LIMB (2) Obesity Code(s): E66.9 - OBESITY, UNSPECIFIED Qualifiers: Body mass index: BMI 60.0-69.9 (3) HTN (hypertension) Code(s): I10 - ESSENTIAL (PRIMARY) HYPERTENSION (4) Lymphedema Code(s): I89.0 - LYMPHEDEMA, NOT ELSEWHERE CLASSIFIED (5) Type 2 diabetes mellitus with other skin ulcer Code(s): E11.622 - TYPE 2 DIABETES MELLITUS WITH OTHER SKIN ULCER; L98.499 - NON -PRESSURE CHRONIC ULCER OF SKIN OF SITES W UNSP SEVERITY Assessment/Plan Cellulitis HTN DM Hyperlipidemia h/o DVT Morbid Obesity Severe Obstructive Sleep Apnea Likely Chronic Hypoxic Respiratory Failure Likely Obesity Hypoventilation Syndrome - continue antibiotics - will need home O2 to keep SpO2 >90% - ABG pending - will need home CPAP or BiPAP pending above ABG - continue anticoagulation DR FLORES
[2018-12-07 16:14] LABS: ARTERIAL BLD GAS O2 SATURATION 88.2 % (95-98); ARTERIAL BLOOD GAS BASE EXCESS 4.3 meq/l (-2-2); ARTERIAL BLOOD GAS PCO2 55.2 mmHg (35-45); ARTERIAL BLOOD GAS PO2 56.1 mmHg (80-105); ARTERIAL BLOOD GAS pH 7.36 (7.35-7.45)
--- NOTE | 2018-12-07 16:16 | PN ---
Progress Note (short form) - Note Progress Note: no complaints Vital Signs Period Temp Pulse Resp BP Sys/Sanz Pulse Ox Last 24 Hr 97.3 F-98.8 F 72-84 20-22 105-134/49-77 93-97 cor-rrr lungs clear abd soft,nt ext no edema CBC, BMP 12/07/18 07:00 12/07/18 07:00 Microbiology 12/05/18 11:20 Blood - Peripheral Venous Blood Culture - Preliminary NO GROWTH OBTAINED AFTER 48 HOURS, INCUBATION TO CONTINUE FOR 3 DAYS. 12/05/18 11:30 Blood - Peripheral Venous Blood Culture - Preliminary NO GROWTH OBTAINED AFTER 48 HOURS, INCUBATION TO CONTINUE FOR 3 DAYS. vanco trough 11.7 a/p cellulilis of the LLE improving continue vanco/zosyn morbid obesity OSAS suspect resolution will be slow given lymphedema Problem List - Problems (1) Cellulitis of left leg Code(s): L03.116 - CELLULITIS OF LEFT LOWER LIMB (2) Lymphedema Code(s): I89.0 - LYMPHEDEMA, NOT ELSEWHERE CLASSIFIED (3) Obesity Code(s): E66.9 - OBESITY, UNSPECIFIED Qualifiers: Body mass index: BMI 60.0-69.9
[2018-12-07] MEDS: RIVAROXABAN 20 MG TABLET PO SCH (18:10)
[2018-12-07] MEDS: ROSUVASTATIN CA 20 MG TABLET (FP) PO SCH (22:27)
[2018-12-08] MEDS ORDERED: PIPERACILLIN/TAZOBACTAM 4.5 GM VIAL IVPB ONE ×3 (01:36→16:32)
[2018-12-08] MEDS ORDERED: DEXTROSE 5%-WATER 100 ML IVPB ONE ×3 (01:36→16:32)
[2018-12-08] MEDS: PIPERACILLIN/TAZOB 4.5 GM 4.5 GM in DEXTROSE 5%-WATER 100 ML IVPB SCH ×3 (02:45→17:00)
[2018-12-08] MEDS: metFORMIN HCL 500 MG TABLET (FP) PO SCH ×2 (06:25→17:00)
--- NOTE | 2018-12-08 10:09 | CONSULT ---
Consult Consult Specialty:: podiatry Reason for Consultation:: evaluation and treatment of dysophic nails and swelling - History of Present Illness Chief Complaint: cellulitis left leg History of Present Illness: cellulitis a few days - History Source History Provided By: Patient - Past Medical History Cardio/Vascular: Yes: HTN, Other (aortic anerysm 5 cm) Pulmonary: Yes: COPD, Sleep Apnea, Other (bob) Infectious Disease: Yes: Other (lt ;leg cellulitis) Musculoskeletal: Yes: Other (lymphodema) Endocrine: Yes: Diabetes Mellitus - Past Surgical History Past Surgical History: Yes: None - Alcohol/Substance Use Hx Alcohol Use: No History of Substance Use: reports: None - Smoking History Smoking history: Never smoked Have you smoked in the past 12 months: No - Social History ADL: Independent History of Recent Travel: No Home Medications - Allergies Allergies/Adverse Reactions: Allergies Allergy/AdvReac Type Severity Reaction Status Date / Time No Known Allergies Allergy Verified 12/04/18 19:06 - Home Medications Home Medications: Ambulatory Orders Hydrochlorothiazide [Hctz -] 25 mg PO DAILY #0 tablet 01/30/16 Rivaroxaban [Xarelto] 15 mg PO BID #0 tablet 01/30/16 Lisinopril [Prinivil] 1 tab PO DAILY 06/04/18 Metformin HCl [Glucophage] 1 tab PO DAILY 06/04/18 Rosuvastatin [Crestor -] 1 tab PO DAILY 06/04/18 Family Disease History - Family Disease History Family Disease History: CA: Father (possible Colon CA) Physical Exam Vital Signs: Vital Signs Temperature 97.9 F 12/08/18 06:00 Pulse Rate 77 12/08/18 06:00 Respiratory Rate 20 12/08/18 06:00 Blood Pressure 133/73 12/08/18 06:00 O2 Sat by Pulse Oximetry (%) 97 12/07/18 21:00 Extremities: Yes: Other (hypertrophic mycotic nails with subungual debris x10, +cellulitis left lower extremity) Edema: Yes (pitting edema of legs and) Labs: CBC, BMP 12/07/18 07:00 12/07/18 07:00 Assessment/Plan cellulitis onychomycosis edema vascular to work up edema. 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 diabetic foot education. foot care q8 weeks. abx as per ID. will follow till dc.
[2018-12-08] MEDS ORDERED: PT OWN MED DRAWER 7, Y5N ONE (10:33)
[2018-12-08] MEDS: VANCOMYCIN HCL 1,500 MG in DEXTROSE 5%-WATER - 500 ML IVPB SCH ×2 (11:03→22:06)
[2018-12-08] MEDS: LISINOPRIL 5 MG TABLET (FP) PO SCH (11:04)
[2018-12-08] MEDS: ASPIRIN COATED 81 MG TABLET.EC PO SCH (11:04)
[2018-12-08] MEDS: TIOTROPIUM BROMIDE 2.5 MCG (SPIRIVA) RESPIMAT INHALER IH SCH (11:04)
--- NOTE | 2018-12-08 13:14 | PN ---
Progress Note, Physician History of Present Illness: pt wants to go home in ?am lt leg less cellulitis - Current Medication List Current Medications: Active Medications Acetaminophen (Tylenol -) 650 mg PO Q4H PRN PRN Reason: FEVER Albuterol Sulfate (Ventolin Hfa Inhaler -) 2 puff IH Q4H PRN PRN Reason: SHORT OF BREATH/WHEEZING Last Admin: 12/06/18 10:30 Dose: 2 puff Aspirin (Ecotrin -) 81 mg PO DAILY [facility] Last Admin: 12/08/18 11:04 Dose: 81 mg Piperacillin Sod/Tazobactam (Sod 4.5 gm/ Dextrose) 100 mls @ 200 mls/hr IVPB Q8H-IV [facility]; Protocol Last Admin: 12/08/18 11:03 Dose: 200 mls/hr Vancomycin HCl 1,500 mg/ (Dextrose) 500 mls @ 125 mls/hr IVPB Q12H [facility]; Protocol Last Admin: 12/08/18 11:03 Dose: 125 mls/hr Lisinopril (Prinivil) 5 mg PO DAILY [facility] Last Admin: 12/08/18 11:04 Dose: 5 mg Metformin HCl (Glucophage -) 1,000 mg PO BID@0700,1630 [facility] Last Admin: 12/08/18 06:25 Dose: 1,000 mg Rivaroxaban (Xarelto -) 20 mg PO DAILY@1800 [facility] Last Admin: 12/07/18 18:10 Dose: 20 mg Rosuvastatin Calcium (Crestor -) 20 mg PO HS [facility] Last Admin: 12/07/18 22:27 Dose: 20 mg Tiotropium [place] (Spiriva Respimat) 2 puff IH DAILY [facility] Last Admin: 12/08/18 11:04 Dose: 2 puff - Objective Vital Signs: Vital Signs Temperature 97.9 F 12/08/18 06:00 Pulse Rate 77 12/08/18 06:00 Respiratory Rate 20 12/08/18 06:00 Blood Pressure 133/73 12/08/18 06:00 O2 Sat by Pulse Oximetry (%) 97 12/07/18 21:00 Constitutional: Yes: Well Nourished Eyes: Yes: WNL HENT: Yes: WNL Neck: Yes: WNL Cardiovascular: Yes: WNL Respiratory: Yes: SOB on Exertion Gastrointestinal: Yes: WNL ...Rectal Exam: Yes: Deferred Genitourinary: Yes: WNL Breast(s): Yes: WNL Musculoskeletal: Yes: WNL Edema: Yes Edema: LLE: 3+, RLE: 3+ Peripheral Pulses WNL: Yes Peripheral Pulses: Left Femoral: 1+, Right Femoral: 1+ Integumentary: Yes: WNL Wound/Incision: Yes: Clean/Dry Neurological: Yes: WNL ...Motor Strength: WNL Psychiatric: Yes: WNL Labs: CBC, BMP 12/07/18 07:00 12/07/18 07:00 INR, PTT INR 1.57 (0.83-1.09) H 12/07/18 07:00 Assessment/Plan pulm to see if 02 tx outpt needed p/t to see pt cont as is ? po atxb as per id ? plan d/c monday
--- NOTE | 2018-12-08 13:40 | PN ---
Progress Note (short form) - Note Progress Note: OOB to chair in [place] O2. Reports breathing feels stable. No acute events overnight. Intake & Output 12/05/18 12/06/18 12/07/18 12/08/18 23:59 23:59 23:59 23:59 Intake Total 1500 2380 2650 780 Balance 1500 2380 2650 780 Weight 387 lb 0.7 oz 387 lb Last Vital Signs Temp Pulse Resp BP Pulse Ox 98.1 F 72 20 119/59 L 97 12/08/18 10:00 12/08/18 10:00 12/08/18 10:00 12/08/18 10:00 12/07/18 21:00 Active Medications Acetaminophen (Tylenol -) 650 mg PO Q4H PRN PRN Reason: FEVER Albuterol Sulfate (Ventolin Hfa Inhaler -) 2 puff IH Q4H PRN PRN Reason: SHORT OF BREATH/WHEEZING Last Admin: 12/06/18 10:30 Dose: 2 puff Aspirin (Ecotrin -) 81 mg PO DAILY [facility] BEDS AT [facility] Last Admin: 12/08/18 11:04 Dose: 81 mg Piperacillin Sod/Tazobactam (Sod 4.5 gm/ Dextrose) 100 mls @ 200 mls/hr IVPB Q8H-IV [facility]; Protocol Last Admin: 12/08/18 11:03 Dose: 200 mls/hr Vancomycin HCl 1,500 mg/ (Dextrose) 500 mls @ 125 mls/hr IVPB Q12H [facility]; Protocol Last Admin: 12/08/18 11:03 Dose: 125 mls/hr Lisinopril (Prinivil) 5 mg PO DAILY [facility] 234 BEDS AT [facility] Last Admin: 12/08/18 11:04 Dose: 5 mg Metformin HCl (Glucophage -) 1,000 mg PO BID@0700,1630 [facility] 234 B[facility]S [facility] Last Admin: 12/08/18 06:25 Dose: 1,000 mg Rivaroxaban (Xarelto -) 20 mg PO DAILY@1800 [facility] 234 BEDS AT [facility] Last Admin: 12/07/18 18:10 Dose: 20 mg Rosuvastatin Calcium (Crestor -) 20 mg PO HS [facility] 234 BEDS AT [facility] Last Admin: 12/07/18 22:27 Dose: 20 mg Tiotropium [place] (Spiriva Respimat) 2 puff IH DAILY [facility] 234 BEDS AT [facility] Last Admin: 12/08/18 11:04 Dose: 2 puff Constitutional: Yes: Obese, NAD Eyes: Yes: WNL HENT: Yes: WNL Neck: Yes: WNL Cardiovascular: Yes: Regular Rate and Rhythm, S1, S2 Respiratory: Yes: Diminished Gastrointestinal: Yes: Normal Bowel Sounds, Soft, Abdomen, Obese Extremities: Yes: WNL Edema: Yes Labs: Laboratory Results - last 24 hr 12/07/18 12/07/18 12/08/18 15:35 16:34 06:12 Puncture Site Right radial ABG pH 7.36 ABG pCO2 at Pt Temp 55.2 H ABG pO2 at Pt Temp 56.1 L ABG HCO3 30.1 H ABG O2 Sat (Measured) 88.2 L ABG O2 Content 11.5 L ABG Base Excess 4.3 H [place] Test No Result Required. Oxygen Flow Rate No Result Required. POC Glucometer 117 107 Assessment/Plan Problem List - Problems (1) Cellulitis of left leg Code(s): L03.116 - CELLULITIS OF LEFT LOWER LIMB (2) Obesity Code(s): E66.9 - OBESITY, UNSPECIFIED Qualifiers: Body mass index: BMI 60.0-69.9 (3) HTN (hypertension) Code(s): I10 - ESSENTIAL (PRIMARY) HYPERTENSION (4) Lymphedema Code(s): I89.0 - LYMPHEDEMA, NOT ELSEWHERE CLASSIFIED (5) Type 2 diabetes mellitus with other skin ulcer Code(s): E11.622 - TYPE 2 DIABETES MELLITUS WITH OTHER SKIN ULCER; L98.499 - NON -PRESSURE CHRONIC ULCER OF SKIN OF SITES W UNSP SEVERITY Assessment/Plan Cellulitis HTN DM Hyperlipidemia h/o DVT Morbid Obesity Severe Obstructive Sleep Apnea Chronic Hypoxic Respiratory Failure: PCO2 : 55 on ABG Likely Obesity Hypoventilation Syndrome - continue antibiotics - Pre and Post ambulation O2 saturation - Will need home BiLevel device with a back up rate to address Chronic Hypercapneic Failure - continue anticoagulation - Should be ready for D/C Monday AM Dr Crawford
[2018-12-08] MEDS: RIVAROXABAN 20 MG TABLET PO SCH (17:00)
[2018-12-08] MEDS: ROSUVASTATIN CA 20 MG TABLET (FP) PO SCH (21:30)
[2018-12-09] MEDS ORDERED: PIPERACILLIN/TAZOBACTAM 4.5 GM VIAL IVPB ONE ×3 (00:02→16:40)
[2018-12-09] MEDS ORDERED: DEXTROSE 5%-WATER 100 ML IVPB ONE ×3 (00:03→16:40)
[2018-12-09] MEDS: PIPERACILLIN/TAZOB 4.5 GM 4.5 GM in DEXTROSE 5%-WATER 100 ML IVPB SCH ×3 (02:37→17:27)
[2018-12-09] MEDS: metFORMIN HCL 500 MG TABLET (FP) PO SCH ×2 (06:14→17:27)
[2018-12-09] MEDS: LISINOPRIL 5 MG TABLET (FP) PO SCH (09:27)
[2018-12-09] MEDS: ASPIRIN COATED 81 MG TABLET.EC PO SCH (09:27)
[2018-12-09] MEDS: TIOTROPIUM BROMIDE 2.5 MCG (SPIRIVA) RESPIMAT INHALER IH SCH (09:29)
[2018-12-09] MEDS: VANCOMYCIN HCL 1,500 MG in DEXTROSE 5%-WATER - 500 ML IVPB SCH ×2 (10:05→23:08)
[2018-12-09 11:33] LABS: HEMATOCRIT 37.5 % (35.4-49); HEMOGLOBIN 11.7 GM/dL (11.7-16.9); MCH 26.1 pg (25.7-33.7); MCHC 31.3 g/dl (32.0-35.9); MEAN CELL VOLUME 83.2 fl (80-96); MEAN PLT VOLUME 8.1 fl (7.5-11.1); PLATELET COUNT 224 K/MM3 (134-434); RBC 4.51 M/mm3 (4.00-5.60); RDW 16.8 % (11.9-15.9); WHITE BLOOD COUNT 10.2 K/mm3 (4.0-10.0)
--- NOTE | 2018-12-09 11:56 | PN ---
Progress Note (short form) - Note Progress Note: OOB to chair in [place] O2. Reports breathing feels stable. No acute events overnight. Intake & Output 12/06/18 12/07/18 12/08/18 12/09/18 23:59 23:59 23:59 23:59 Intake Total 2380 2650 920 600 Balance 2380 2650 920 600 Weight 387 lb Last Vital Signs Temp Pulse Resp BP Pulse Ox 97.9 F 86 22 H 129/77 97 12/09/18 09:33 12/09/18 09:33 12/09/18 09:33 12/09/18 09:33 12/09/18 09:00 Active Medications Acetaminophen (Tylenol -) 650 mg PO Q4H PRN PRN Reason: FEVER Albuterol Sulfate (Ventolin Hfa Inhaler -) 2 puff IH Q4H PRN PRN Reason: SHORT OF BREATH/WHEEZING Last Admin: 12/06/18 10:30 Dose: 2 puff Aspirin (Ecotrin -) 81 mg PO DAILY [facility] Last Admin: 12/09/18 09:27 Dose: 81 mg Piperacillin Sod/Tazobactam (Sod 4.5 gm/ Dextrose) 100 mls @ 200 mls/hr IVPB Q8H-IV [facility]; Protocol Last Admin: 12/09/18 09:27 Dose: 200 mls/hr Vancomycin HCl 1,500 mg/ (Dextrose) 500 mls @ 125 mls/hr IVPB Q12H [facility]; Protocol Last Admin: 12/09/18 10:05 Dose: 125 mls/hr Lisinopril (Prinivil) 5 mg PO DAILY [facility] Last Admin: 12/09/18 09:27 Dose: 5 mg Metformin HCl (Glucophage -) 1,000 mg PO BID@0700,1630 [facility] Last Admin: 12/09/18 06:14 Dose: 1,000 mg Rivaroxaban (Xarelto -) 20 mg PO DAILY@1800 [facility] Last Admin: 12/08/18 17:00 Dose: 20 mg Rosuvastatin Calcium (Crestor -) 20 mg PO HS [facility] Last Admin: 12/08/18 21:30 Dose: 20 mg Tiotropium [place] (Spiriva Respimat) 2 puff IH DAILY [facility] Last Admin: 12/09/18 09:29 Dose: 2 puff Constitutional: Yes: Obese, NAD Eyes: Yes: WNL HENT: Yes: WNL Neck: Yes: WNL Cardiovascular: Yes: Regular Rate and Rhythm, S1, S2 Respiratory: Yes: Diminished Gastrointestinal: Yes: Normal Bowel Sounds, Soft, Abdomen, Obese Extremities: Yes: WNL Edema: Yes Labs: Laboratory Results - last 24 hr 12/08/18 12/09/18 16:39 05:36 POC Glucometer 161 113 Assessment/Plan Problem List - Problems (1) Cellulitis of left leg Code(s): L03.116 - CELLULITIS OF LEFT LOWER LIMB (2) Obesity Code(s): E66.9 - OBESITY, UNSPECIFIED Qualifiers: Body mass index: BMI 60.0-69.9 (3) HTN (hypertension) Code(s): I10 - ESSENTIAL (PRIMARY) HYPERTENSION (4) Lymphedema Code(s): I89.0 - LYMPHEDEMA, NOT ELSEWHERE CLASSIFIED (5) Type 2 diabetes mellitus with other skin ulcer Code(s): E11.622 - TYPE 2 DIABETES MELLITUS WITH OTHER SKIN ULCER; L98.499 - NON -PRESSURE CHRONIC ULCER OF SKIN OF SITES W UNSP SEVERITY Assessment/Plan Cellulitis HTN DM Hyperlipidemia h/o DVT Morbid Obesity Severe Obstructive Sleep Apnea Chronic Hypoxic Respiratory Failure: PCO2 : 55 on ABG Likely Obesity Hypoventilation Syndrome - continue antibiotics - Pre and Post ambulation O2 saturation - Will need home BiLevel device with a back up rate to address Chronic Hypercapneic Failure - Patient has also qualified for supplemental home O2: saturation on RA at rest is 87%. - continue anticoagulation - D/C planning Dr Crawford
[2018-12-09 11:57] LABS: ANION GAP 6 MMOL/L (8-16); BLOOD UREA NITROGEN 13 mg/dL (7-18); CALCIUM 8.5 mg/dL (8.5-10.1); CHLORIDE 100 mmol/L (98-107); CO2 32 mmol/L (21-32); CREATININE 0.9 mg/dL (0.55-1.3); GLUCOSE,RANDOM 151 mg/dL (74-106); SODIUM 138 mmol/L (136-145)
--- NOTE | 2018-12-09 13:25 | PN ---
Progress Note (short form) - Note Progress Note: no complaints Vital Signs Period Temp Pulse Resp BP Sys/Sanz Pulse Ox Last 24 Hr 97.5 F-98.9 F 57-86 21-24 119-147/51-77 97-97 cor-rrr lungs clear abd soft,n ext decreased erythema of the RLE +lymphedema CBC, BMP 12/09/18 11:20 12/09/18 11:20 Microbiology 12/05/18 11:20 Blood - Peripheral Venous Blood Culture - Preliminary NO GROWTH OBTAINED AFTER 96 HOURS, INCUBATION TO CONTINUE FOR 1 DAYS. 12/05/18 11:30 Blood - Peripheral Venous Blood Culture - Preliminary NO GROWTH OBTAINED AFTER 96 HOURS, INCUBATION TO CONTINUE FOR 1 DAYS. vanco trough 11.7 a/p cellulilis of the LLE improving continue vanco/zosyn today day #5- no objection to d/c home on augmentin 875 mg po bid for another 7 days morbid obesity OSAS suspect resolution will be slow given lymphedema please call back if needed Problem List - Problems (1) Cellulitis of left leg Code(s): L03.116 - CELLULITIS OF LEFT LOWER LIMB (2) Lymphedema Code(s): I89.0 - LYMPHEDEMA, NOT ELSEWHERE CLASSIFIED (3) Obesity Code(s): E66.9 - OBESITY, UNSPECIFIED Qualifiers: Body mass index: BMI 60.0-69.9
[2018-12-09] MEDS: RIVAROXABAN 20 MG TABLET PO SCH (17:27)
[2018-12-09] MEDS ORDERED: PT OWN MED DRAWER 7, Y5N ONE (22:14)
[2018-12-09] MEDS: ROSUVASTATIN CA 20 MG TABLET (FP) PO SCH (23:08)
[2018-12-10] MEDS ORDERED: PIPERACILLIN/TAZOBACTAM 4.5 GM VIAL IVPB ONE ×3 (01:31→17:21)
[2018-12-10] MEDS ORDERED: DEXTROSE 5%-WATER 100 ML IVPB ONE ×3 (01:31→17:21)
[2018-12-10] MEDS: PIPERACILLIN/TAZOB 4.5 GM 4.5 GM in DEXTROSE 5%-WATER 100 ML IVPB SCH ×3 (02:26→19:10)
[2018-12-10] MEDS: metFORMIN HCL 500 MG TABLET (FP) PO SCH ×2 (06:56→17:36)
[2018-12-10] MEDS ORDERED: PT OWN MED DRAWER 7, Y5N ONE (10:09)
[2018-12-10] MEDS: LISINOPRIL 5 MG TABLET (FP) PO SCH (10:36)
[2018-12-10] MEDS: ASPIRIN COATED 81 MG TABLET.EC PO SCH (10:36)
[2018-12-10] MEDS: TIOTROPIUM BROMIDE 2.5 MCG (SPIRIVA) RESPIMAT INHALER IH SCH (10:37)
--- NOTE | 2018-12-10 11:20 | PN ---
Progress Note (short form) - Note Progress Note: Resting in bed in NAD on NC O2. Reports breathing feels stable. No acute events overnight. Intake & Output 12/07/18 12/08/18 12/09/18 12/10/18 23:59 23:59 23:59 23:59 Intake Total 2650 1620 1900 Balance 2650 1620 1900 Last Vital Signs Temp Pulse Resp BP Pulse Ox 98.1 F 79 22 H 130/76 96 12/10/18 06:00 12/10/18 06:00 12/10/18 06:00 12/10/18 06:00 12/09/18 21:00 Active Medications Acetaminophen (Tylenol -) 650 mg PO Q4H PRN PRN Reason: FEVER Albuterol Sulfate (Ventolin Hfa Inhaler -) 2 puff IH Q4H PRN PRN Reason: SHORT OF BREATH/WHEEZING Last Admin: 12/06/18 10:30 Dose: 2 puff Aspirin (Ecotrin -) 81 mg PO DAILY [facility] Last Admin: 12/10/18 10:36 Dose: 81 mg Piperacillin Sod/Tazobactam (Sod 4.5 gm/ Dextrose) 100 mls @ 200 mls/hr IVPB Q8H-IV [facility]; Protocol Last Admin: 12/10/18 10:37 Dose: 200 mls/hr Vancomycin HCl 1,500 mg/ (Dextrose) 500 mls @ 125 mls/hr IVPB Q12H [facility]; Protocol Last Admin: 12/09/18 23:08 Dose: 125 mls/hr Lisinopril (Prinivil) 5 mg PO DAILY [facility] Last Admin: 12/10/18 10:36 Dose: 5 mg Metformin HCl (Glucophage -) 1,000 mg PO BID@0700,1630 [facility] Last Admin: 12/10/18 06:56 Dose: 1,000 mg Rivaroxaban (Xarelto -) 20 mg PO DAILY@1800 [facility] Last Admin: 12/09/18 17:27 Dose: 20 mg Rosuvastatin Calcium (Crestor -) 20 mg PO HS [facility] Last Admin: 12/09/18 23:08 Dose: 20 mg Tiotropium [place] (Spiriva Respimat) 2 puff IH DAILY [facility] Last Admin: 12/10/18 10:37 Dose: 2 puff Constitutional: Yes: Obese, NAD Eyes: Yes: WNL HENT: Yes: WNL Neck: Yes: WNL Cardiovascular: Yes: Regular Rate and Rhythm, S1, S2 Respiratory: Yes: Diminished Gastrointestinal: Yes: Normal Bowel Sounds, Soft, Abdomen, Obese Extremities: Yes: WNL Edema: Yes Labs: Laboratory Results - last 24 hr 12/09/18 12/09/18 12/09/18 11:20 11:20 17:26 WBC 10.2 H RBC 4.51 Hgb 11.7 Hct 37.5 MCV 83.2 MCH 26.1 MCHC 31.3 L RDW 16.8 H Plt Count 224 MPV 8.1 Sodium 138 Potassium 4.0 Chloride 100 Carbon Dioxide 32 Anion Gap 6 L BUN 13 Creatinine 0.9 Creat Clearance w eGFR 86.37 POC Glucometer 134 Random Glucose 151 H Calcium 8.5 Assessment/Plan Problem List - Problems (1) Cellulitis of left leg Code(s): L03.116 - CELLULITIS OF LEFT LOWER LIMB (2) Obesity Code(s): E66.9 - OBESITY, UNSPECIFIED Qualifiers: Body mass index: BMI 60.0-69.9 (3) HTN (hypertension) Code(s): I10 - ESSENTIAL (PRIMARY) HYPERTENSION (4) Lymphedema Code(s): I89.0 - LYMPHEDEMA, NOT ELSEWHERE CLASSIFIED (5) Type 2 diabetes mellitus with other skin ulcer Code(s): E11.622 - TYPE 2 DIABETES MELLITUS WITH OTHER SKIN ULCER; L98.499 - NON -PRESSURE CHRONIC ULCER OF SKIN OF SITES W UNSP SEVERITY Assessment/Plan Cellulitis HTN DM Hyperlipidemia h/o DVT Morbid Obesity Severe Obstructive Sleep Apnea Chronic Hypoxic Respiratory Failure: PCO2 : 55 on ABG Likely Obesity Hypoventilation Syndrome - ABX per ID - Will need home BiLevel device with a back up rate to address Chronic Hypercapneic Failure: IPAP: 12 cm H2O / EPAP: 8 cm H2O / back rate 12 per minute. - Patient has also qualified for supplemental home O2: saturation on RA at rest is 87%. He will require portable O2 @ 2 L NC, continuous. - continue anticoagulation - No Pulmonry contraindication for D/C once home O2 & BiLevel has been arranged. Dr Crawford
--- NOTE | 2018-12-10 14:33 | PN ---
Progress Note, Physician - Current Medication List Current Medications: Active Medications Acetaminophen (Tylenol -) 650 mg PO Q4H PRN PRN Reason: FEVER Albuterol Sulfate (Ventolin Hfa Inhaler -) 2 puff IH Q4H PRN PRN Reason: SHORT OF BREATH/WHEEZING Last Admin: 12/06/18 10:30 Dose: 2 puff Aspirin (Ecotrin -) 81 mg PO DAILY [facility] Last Admin: 12/10/18 10:36 Dose: 81 mg Piperacillin Sod/Tazobactam (Sod 4.5 gm/ Dextrose) 100 mls @ 200 mls/hr IVPB Q8H-IV [facility]; Protocol Last Admin: 12/10/18 10:37 Dose: 200 mls/hr Vancomycin HCl 1,500 mg/ (Dextrose) 500 mls @ 125 mls/hr IVPB Q12H [facility]; Protocol Last Admin: 12/09/18 23:08 Dose: 125 mls/hr Lisinopril (Prinivil) 5 mg PO DAILY [facility] Last Admin: 12/10/18 10:36 Dose: 5 mg Metformin HCl (Glucophage -) 1,000 mg PO BID@0700,1630 [facility] Last Admin: 12/10/18 06:56 Dose: 1,000 mg Rivaroxaban (Xarelto -) 20 mg PO DAILY@1800 [facility] Last Admin: 12/09/18 17:27 Dose: 20 mg Rosuvastatin Calcium (Crestor -) 20 mg PO HS [facility] Last Admin: 12/09/18 23:08 Dose: 20 mg Tiotropium [place] (Spiriva Respimat) 2 puff IH DAILY [facility] Last Admin: 12/10/18 10:37 Dose: 2 puff - Objective Vital Signs: Vital Signs Temperature 98.1 F 12/10/18 06:00 Pulse Rate 79 12/10/18 06:00 Respiratory Rate 22 H 12/10/18 06:00 Blood Pressure 130/76 12/10/18 06:00 O2 Sat by Pulse Oximetry (%) 96 12/09/18 21:00 Labs: CBC, BMP 12/09/18 11:20 12/09/18 11:20 INR, PTT INR 1.57 (0.83-1.09) H 12/07/18 07:00 Assessment/Plan bileval out pt taken care of cpap out pt taking caer of working on o2 at house continouess even at work potable if they george him d/c in am po atx
[2018-12-10] MEDS: VANCOMYCIN HCL 1,500 MG in DEXTROSE 5%-WATER - 500 ML IVPB SCH (14:39)
[2018-12-10] MEDS: RIVAROXABAN 20 MG TABLET PO SCH (17:37)
[2018-12-10] MEDS: ROSUVASTATIN CA 20 MG TABLET (FP) PO SCH (21:35)
[2018-12-11] MEDS: VANCOMYCIN HCL 1,500 MG in DEXTROSE 5%-WATER - 500 ML IVPB SCH (00:39)
[2018-12-11] MEDS ORDERED: PIPERACILLIN/TAZOBACTAM 4.5 GM VIAL IVPB ONE ×2 (01:18→10:42)
[2018-12-11] MEDS ORDERED: DEXTROSE 5%-WATER 100 ML IVPB ONE ×2 (01:18→10:42)
[2018-12-11] MEDS: PIPERACILLIN/TAZOB 4.5 GM 4.5 GM in DEXTROSE 5%-WATER 100 ML IVPB SCH ×2 (02:45→10:28)
[2018-12-11] MEDS ORDERED: VANCOMYCIN HCL 1,500 MG in DEXTROSE 5%-WATER - 500 ML IVPB SCH (03:00)
[2018-12-11] MEDS: metFORMIN HCL 500 MG TABLET (FP) PO SCH (06:43)
[2018-12-11] MEDS ORDERED: PT OWN MED DRAWER 7, Y5N ONE (10:42)
--- NOTE | 2018-12-11 10:45 | DS ---
Physical Examination Vital Signs: Vital Signs Temperature 98.1 F 12/11/18 06:00 Pulse Rate 79 12/11/18 06:00 Respiratory Rate 20 12/11/18 06:00 Blood Pressure 136/74 12/11/18 06:00 O2 Sat by Pulse Oximetry (%) 90 L 12/11/18 08:56 Constitutional: Yes: Well Nourished Eyes: Yes: WNL HENT: Yes: WNL Neck: Yes: WNL Cardiovascular: Yes: WNL Respiratory: Yes: WNL Gastrointestinal: Yes: WNL ...Rectal Exam: Yes: Deferred Renal/: Yes: WNL Breast(s): Yes: WNL Musculoskeletal: Yes: WNL Extremities: Yes: Other (lt leg bettyer celluitis) Edema: Yes Edema: LLE: 2+, RLE: 2+ Peripheral Pulses WNL: Yes Integumentary: Yes: WNL Wound/Incision: Yes: Clean/Dry Neurological: Yes: WNL ...Motor Strength: WNL Labs: CBC, BMP 12/09/18 11:20 12/09/18 11:20 Discharge Summary Reason For Visit: CELLULLITIS OF LEFT LOWER EXTREMITY Current Active Problems Cellulitis of left leg (Acute) Colon cancer screening (Acute) Obesity (Acute) - Instructions Diet, Activity, Other Instructions: uagmentin bid cpap at home will be deliverd o2 tx continuosly w portable for worf bilevel to be at home cont all meds at home appt w dc 5 pm Disposition: HOME - Home Medications Comprehensive Discharge Medication List: Ambulatory Orders Hydrochlorothiazide [Hctz -] 25 mg PO DAILY #0 tablet 01/30/16 Rivaroxaban [Xarelto] 15 mg PO BID #0 tablet 01/30/16 Lisinopril [Prinivil] 1 tab PO DAILY 06/04/18 Metformin HCl [Glucophage] 1 tab PO DAILY 06/04/18 Rosuvastatin [Crestor -] 1 tab PO DAILY 06/04/18
[2018-12-11] MEDS: ASPIRIN COATED 81 MG TABLET.EC PO SCH (10:50)
[2018-12-11] MEDS: LISINOPRIL 5 MG TABLET (FP) PO SCH (10:50)
[2018-12-11] MEDS: TIOTROPIUM BROMIDE 2.5 MCG (SPIRIVA) RESPIMAT INHALER IH SCH (10:51)
[2018-12-11 10:57] VITALS: BP 119/67; PULSE 83; TEMP 97.7
== END 2018-12-11 12:52 | disposition home or self-care (01) | DRG 603 ==
LOC: JER 18:59 → JERBED 22:09 → J5S 12-05 02:00
PROVIDERS: ADMIT Family Medicine; ATTEND Family Medicine
DX: L03.116 Cellulitis of left lower limb (principal); Z68.44 Body mass index [BMI] 60.0-69.9, adult; E66.2 Morbid (severe) obesity with alveolar hypoventilation; J96.11 Chronic respiratory failure with hypoxia; E11.9 Type 2 diabetes mellitus without complications; E78.5 Hyperlipidemia, unspecified; I10 Essential (primary) hypertension; F32.9 Major depressive disorder, single episode, unspecified; E78.00 Pure hypercholesterolemia, unspecified; I89.0 Lymphedema, not elsewhere classified; J44.9 Chronic obstructive pulmonary disease, unspecified; I71.4 Abdominal aortic aneurysm, without rupture; E11.622 Type 2 diabetes mellitus with other skin ulcer; L98.499 Non-pressure chronic ulcer of skin of other sites with unspecified severity; B35.1 Tinea unguium; Z86.718 Personal history of other venous thrombosis and embolism; Z12.11 Encounter for screening for malignant neoplasm of colon
CPT/HCPCS: 36415; 36600; 71045-TC-FY; 80048; 80053; 82550; 82803; 82962; 83036; 84484; 85025; 85027; 85610; 87040; 93005; 93010; 93971-TC; 94660; 94761; 97116-GP; 97161-GP; 99282-25; G0480

== ENCOUNTER 2018-12-17 14:55 | Inpatient (IN) | payer OTHER ==
--- NOTE | 2018-12-17 16:53 | PDOC ---
History of Present Illness - General Chief Complaint: Wound Stated Complaint: WOUND Time Seen by Provider: 12/17/18 16:37 History Source: Patient - History of Present Illness Occurred: reports: other Lower Extremity Pain Location: left: leg Past History - Past Medical History Allergies/Adverse Reactions: Allergies Allergy/AdvReac Type Severity Reaction Status Date / Time No Known Allergies Allergy Verified 12/17/18 15:39 Home Medications: Ambulatory Orders Hydrochlorothiazide [Hctz -] 25 mg PO DAILY #0 tablet 01/30/16 Lisinopril [Prinivil] 5 mg PO DAILY 06/04/18 Metformin HCl [Glucophage] 500 mg PO DAILY 06/04/18 Rosuvastatin [Crestor -] 20 mg PO DAILY 06/04/18 Rivaroxaban [Xarelto] 20 mg PO DAILY 12/17/18 Anemia: No Asthma: No Cancer: No Cardiac Disorders: No CVA: No COPD: No CHF: No Dementia: No Diabetes: Yes GI Disorders: No Disorders: No HTN: Yes Hypercholesterolemia: Yes Liver Disease: No Seizures: No Thyroid Disease: No Other medical history: venous insufficiency - Suicide/Smoking/Psychosocial Hx Smoking History: Never smoked Have you smoked in the past 12 months: No Hx Alcohol Use: No Drug/Substance Use Hx: No Substance Use Type: None Hx Substance Use Treatment: No Review of Systems - Review of Systems Constitutional: No: Chills, Fever Respiratory: No: Shortness of Breath Cardiac (ROS): No: Chest Pain, Lightheadedness, Palpitations ABD/GI: No: Nausea, Vomiting *Physical Exam - Vital Signs Last Vital Signs Temp Pulse Resp BP Pulse Ox 98 F 89 18 106/56 L 93 L 12/17/18 15:41 12/17/18 15:41 12/17/18 15:41 12/17/18 15:41 12/17/18 15:41 - Physical Exam General Appearance: Yes: Appropriately Dressed. No: Apparent Distress HEENT: positive: Normal Voice Neck: positive: Supple Respiratory/Chest: positive: Lungs Clear, Normal Breath Sounds. negative: Respiratory Distress Cardiovascular: positive: Regular Rate, S1, S2 Extremity: positive: Other ( extensive non-pitting edema L>R, w/ diffuse erythema of LLE extending to proximal thigh w/ ttp and increased warmth, weeping blisters throughout LLE, unable to palpate pulses) Integumentary: positive: Dry, Warm Neurologic: positive: Fully Oriented, Alert, Normal Mood/Affect ED Treatment Course - LABORATORY CBC & Chemistry Diagram: 12/17/18 17:16 12/17/18 17:16 Medical Decision Making - Medical Decision Making 12/17/18 16:51 57 yo F, morbidly obesed, HLD, DM, chronic hypercapneic resp failure (baseline sat low 90s on RA), on oxygen at home but rarely uses per pt, waiting for CPAP machine, lyphedema, chronic LE wounds, LE cellulitis, DVT on xarelto, here w/ increased drainage for LLE. Patient s/p admission for LL cellulitis over a week ago and currently on doxycycline, as was unable to tolerate Augmentin 2/2 to rash which is still present per patient. States he noticed several days ago that wound is draining more clear fluid. No worsening pain and no fever or chills. Denies any chest pain, shortness of breath or palpitations. Patient states he was being seen in wound clinic upstairs today, but was told to come to the ED for further evaluation See exam Concern for recurrent LLE cellulitis Currently on doxy for same Afebrile and in minimal distress w/ extensive erythema w/ ttp and warmth that extends almost to L groin -admit for IV abx -labs -was r/o for DVT during recent admission -will arrange admission w/ PMD 12/17/18 17:[address] Lalo Lindsey who wants patient admitted. M.DMartine recommending antibiotics and a dose of steroids in ED. Requesting consult placed to Dr. Magdaleno of vascular, Dr. Gold of ID and Dr. Arzola of dermatology. Of note, multiple organisms grew out on prior wound culture (05/2018 ), sensitive to vancomycin and Zosyn. *DC/Admit/Observation/Transfer Diagnosis at time of Disposition: Cellulitis of left leg - Discharge Dispostion Condition at time of disposition: Fair Decision to Admit order: Yes - Referrals Referrals: Lalo Lindsey MD [Primary Care Provider] - - Patient Instructions - Post Discharge Activity
[2018-12-17 17:31] LABS: BASO % 0.4 % (0-2.0); EOS % 5.6 % (0-4.5); HEMATOCRIT 40.6 % (35.4-49); HEMOGLOBIN 12.7 GM/dL (11.7-16.9); LYMPH % 11.6 % (8-40); MCH 26.2 pg (25.7-33.7); MCHC 31.3 g/dl (32.0-35.9); MEAN CELL VOLUME 83.7 fl (80-96); MEAN PLT VOLUME 8.5 fl (7.5-11.1); MONO % 8.6 % (3.8-10.2); NEUT % 73.8 % (42.8-82.8); PLATELET COUNT 348 K/MM3 (134-434); RBC 4.86 M/mm3 (4.00-5.60); WHITE BLOOD COUNT 16.4 K/mm3 (4.0-10.0)
[2018-12-17] MEDS ORDERED: methylPREDNISolone NA SUCC 40 MG/1 ML VIAL IVPUSH ONE (17:41)
[2018-12-17] MEDS ORDERED: VANCOMYCIN 1,000 MG in DEXTROSE 5%-WATER - 250 ML IVPB ONE (17:41)
[2018-12-17] MEDS ORDERED: PIPERACILLIN/TAZOB 3.375 GM 3.375 GM in DEXTROSE 5%-WATER - 50 ML IVPB ONE (17:44)
[2018-12-17] MEDS ORDERED: VANCOMYCIN 1 GRAM (PRE-DOCKED) 1,000 MG/250 ML BAG IVPB ONE (17:46)
[2018-12-17] MEDS ORDERED: methylPREDNISolone NA SUCC 40 MG/1 ML VIAL ONE ×2 (17:46→21:09)
[2018-12-17 18:05] LABS: ALBUMIN 2.6 g/dl (3.4-5.0); ALK PHOS 45 U/L (45-117); ANION GAP 4 MMOL/L (8-16); BILIRUBIN,TOTAL 0.3 mg/dL (0.2-1); BLOOD UREA NITROGEN 32 mg/dL (7-18); CALCIUM 9.4 mg/dL (8.5-10.1); CHLORIDE 97 mmol/L (98-107); CO2 33 mmol/L (21-32); CREATININE 1.1 mg/dL (0.55-1.3); GLUCOSE,RANDOM 119 mg/dL (74-106); POTASSIUM 4.7 mmol/L (3.5-5.1); SGOT/AST 19 U/L (15-37); SGPT/ALT 30 U/L (13-61); SODIUM 135 mmol/L (136-145); TOT PROT 6.6 g/dl (6.4-8.2)
[2018-12-17] MEDS ORDERED: PIPERACILLIN/TAZOB 3.375 GM 3.375 GM/50 ML BAG IVPB ONE (19:53)
[2018-12-17] MEDS: ROSUVASTATIN CA 20 MG TABLET (FP) PO SCH (22:41)
[2018-12-17] MEDS: methylPREDNISolone NA SUCC 40 MG/1 ML VIAL IVPB SCH (22:41)
[2018-12-18] MEDS ORDERED: methylPREDNISolone NA SUCC 40 MG/1 ML VIAL ONE ×2 (01:58→15:23)
[2018-12-18] MEDS: methylPREDNISolone NA SUCC 40 MG/1 ML VIAL IVPB SCH ×4 (02:08→21:45)
[2018-12-18] MEDS: metFORMIN HCL 500 MG TABLET (FP) PO SCH (06:27)
[2018-12-18 06:52] LABS: BASO % 0.9 % (0-2.0); EOS % 0.4 % (0-4.5); HEMATOCRIT 38.8 % (35.4-49); HEMOGLOBIN 12.4 GM/dL (11.7-16.9); MCH 26.5 pg (25.7-33.7); MCHC 31.9 g/dl (32.0-35.9); MONO % 1.6 % (3.8-10.2); NEUT % 92.1 % (42.8-82.8); RBC 4.67 M/mm3 (4.00-5.60); RDW 17.1 % (11.9-15.9); WHITE BLOOD COUNT 19.7 K/mm3 (4.0-10.0)
[2018-12-18 07:02] LABS: ANION GAP 6 MMOL/L (8-16); BLOOD UREA NITROGEN 38 mg/dL (7-18); CALCIUM 8.3 mg/dL (8.5-10.1); CHLORIDE 98 mmol/L (98-107); CO2 31 mmol/L (21-32); CREATININE 1.4 mg/dL (0.55-1.3); GLUCOSE,RANDOM 164 mg/dL (74-106); POTASSIUM 4.9 mmol/L (3.5-5.1); SODIUM 135 mmol/L (136-145)
[2018-12-18] MEDS ORDERED: SODIUM CHLORIDE 1,000 ML IV SCH (09:45)
[2018-12-18] MEDS ORDERED: PIPERACILLIN/TAZOB 3.375 GM 3.375 GM in DEXTROSE 5%-WATER - 50 ML IVPB SCH (10:00)
--- NOTE | 2018-12-18 10:45 | HP ---
Admitting History and Physical - Admission Chief Complaint: presented to er sent buy care dr zapata for erythemayous rash all over bodt christiano lt leg since 1 wk ago 1 day after augmentin started. placed an doxy by dr zapata. denies all other complaints never f/u w me post d/ c hosp History Source: Patient Limitations to Obtaining History: No Limitations - Past Medical History Cardiovascular: Yes: HTN, Other (aortic anerysm 5 cm) Pulmonary: Yes: COPD, Sleep Apnea, Other (bob) Infectious Disease: Yes: Other (lt ;leg cellulitis) Musculoskeletal: Yes: Other (lymphodema) Endocrine: Yes: Diabetes Mellitus - Past Surgical History Past Surgical History: Yes: None - Smoking History Smoking history: Never smoked Have you smoked in the past 12 months: No - Alcohol/Substance Use Hx Alcohol Use: No History of Substance Use: reports: None - Social History ADL: Independent History of Recent Travel: No Home Medications - Allergies Allergies/Adverse Reactions: Allergies Allergy/AdvReac Type Severity Reaction Status Date / Time No Known Allergies Allergy Verified 12/17/18 15:39 - Home Medications Home Medications: Ambulatory Orders Hydrochlorothiazide [Hctz -] 25 mg PO DAILY #0 tablet 01/30/16 Lisinopril [Prinivil] 5 mg PO DAILY 06/04/18 Metformin HCl [Glucophage] 500 mg PO DAILY 06/04/18 Rosuvastatin [Crestor -] 20 mg PO DAILY 06/04/18 Rivaroxaban [Xarelto] 20 mg PO DAILY 12/17/18 Family Disease History - Family Disease History Family History: Unremarkable Family Disease History: CA: Father (possible Colon CA) Review of Systems - Review of Systems Integumentary: reports: Blister, Erythema Physical Examination Vital Signs: Vital Signs Temperature 98.1 F 12/18/18 09:01 Pulse Rate 86 12/18/18 08:03 Respiratory Rate 20 12/18/18 08:03 Blood Pressure 118/68 12/18/18 08:03 O2 Sat by Pulse Oximetry (%) 96 12/18/18 08:03 Constitutional: Yes: Well Nourished Eyes: Yes: WNL HENT: Yes: WNL Neck: Yes: WNL Cardiovascular: Yes: WNL Respiratory: Yes: Poor Air Entry Gastrointestinal: Yes: WNL ...Rectal Exam: Yes: Deferred Renal/: Yes: WNL Breast(s): Yes: WNL Musculoskeletal: Yes: WNL Extremities: Yes: Erythema, Other (lymphodema lr greater than rt) Edema: Yes Edema: LLE: 2+, RLE: 2+ Peripheral Pulses WNL: Yes Integumentary: Yes: Venous Stasis Changes Wound/Incision: Yes: Clean/Dry Neurological: Yes: WNL ...Motor Strength: WNL Psychiatric: Yes: WNL Labs: CBC, BMP 12/18/18 05:30 12/18/18 05:30 Assessment/Plan ? hold off axtbs until id sees pt wbc high duev to steroids chk labs in am id vasc to see pt today
[2018-12-18] MEDS: HYDROCHLOROTHIAZIDE 25 MG TABLET (FP) PO SCH (11:02)
[2018-12-18] MEDS: LISINOPRIL 5 MG TABLET (FP) PO SCH (11:03)
[2018-12-18 12:10] LABS: ANISOCYTOSIS 1+; MACROCYTOSIS 0; TEAR DROP CELLS 1+
--- NOTE | 2018-12-18 13:54 | PN ---
Progress Note (short form) - Note Progress Note: ID consult dictated imp/reccd drug rash -Augmentin cannot r/o cellulitis of the RLE- start zyvox chronic lymphedema morbid obesity d/w dr south - who had seen patient as outpt with rash and switched the augmentin to doxycycline which he took for the weekend seen in wound care yesterday and advised admission no fevers feels well c/o rash no lesions in mouth or eyes plan steroids for drug rash zyvox for possible cellulitis document augmentin allergy Problem List - Problems (1) Drug rash Code(s): L27.0 - GEN SKIN ERUPTION DUE TO DRUGS AND MEDS TAKEN INTERNALLY (2) Cellulitis of left foot Code(s): L03.116 - CELLULITIS OF LEFT LOWER LIMB (3) Lymphedema Code(s): I89.0 - LYMPHEDEMA, NOT ELSEWHERE CLASSIFIED (4) Morbid obesity Code(s): E66.01 - MORBID (SEVERE) OBESITY DUE TO EXCESS CALORIES
--- NOTE | 2018-12-18 14:27 | EKG ---
Test Reason : Blood Pressure : / mmHG Vent. Rate : 089 BPM Atrial Rate : 089 BPM P-R Int : 166 ms QRS Dur : 156 ms QT Int : 406 ms P-R-T Axes : 020 -38 078 degrees QTc Int : 493 ms NORMAL SINUS RHYTHM LEFT AXIS DEVIATION LEFT BUNDLE BRANCH BLOCK ABNORMAL ECG Confirmed by MD Ruperto, Michi ([id number]) on 12/18/2018 2:27:26 PM Referred By: Confirmed By:Michi Hickey MD
[2018-12-18] MEDS ORDERED: ALBUTEROL SO4 8 GM HFA INHALER IH PRN (15:01)
[2018-12-18] MEDS: LINEZOLID 600 MG PREMIX BAG 600 MG/300 ML BAG IVPB SCH (15:29)
[2018-12-18] MEDS: hydrOXYzine HCL 25 MG TABLET (FP) PO PRN ×2 (15:52→21:53)
--- NOTE | 2018-12-18 19:13 | CONS ---
DATE OF CONSULTATION: DATE OF DICTATION: 12/18/2018 INFECTIOUS DISEASE CONSULTATION REFERRING PHYSICIAN: Lalo Lindsey M.D. CONSULTING PHYSICIAN: Vijay Gold M.D. HISTORY OF PRESENT ILLNESS: This is a 57-year-old man morbidly obese with chronic lymphedema who was just here December 04 to December 11. During that admission, he was treated with vancomycin and Zosyn for a cellulitis of the right lower extremity. The leg improved, and he was treated 5 days with Zosyn and plan was to go home on Augmentin for another 7 days. He actually completed 7 days, because he was discharged 48 hours later by the primary doctor, who then sent him out on Augmentin for a week. He says he took the Augmentin and immediately started having itching. He continued to take it, and on that Monday he was seen by Dr. Taylor, who noted that he had a rash, and switched him to doxycycline, assuming this was a beta lactam rash. He stayed on the doxycycline for the weekend and was seen at wound care yesterday, where they noted that he had this diffuse rash, and his leg was weeping. He was sent to the emergency room for further evaluation. He denies any fevers at home. He notes that the rash is very itchy. He was started on steroids last night and given a dose of vancomycin and Zosyn. This morning he reports again feeling very itchy and hot but otherwise he is able to eat and drink. He reports he has no oral ulcers , and he is otherwise feeling okay. PAST MEDICAL HISTORY: Noted for chronic lymphedema, diabetes, hypertension, hypercholesterolemia, and morbid obesity. ALLERGIES: No known drug allergies in the past, though I would certainly add AUGMENTIN as a current allergy. MEDICATION: Include hydrochlorothiazide, Xarelto, Prinivil, Glucophage, and Crestor. SOCIAL HISTORY: Lives with his daughter. REVIEW OF SYSTEMS: As per HPI. PHYSICAL EXAMINATION: GENERAL: He is awake and alert. VITAL SIGNS: Temperature 97.7, pulse of 85, blood pressure 116/63, respiratory rate 16, he is saturating 97%. HEENT: He has diffuse erythema of his face. He has no conjunctivitis. He has no oral lesions. NECK: Supple. LUNGS: Clear to auscultation. HEART: Regular rate and rhythm. Distant heart sounds. ABDOMEN: Soft, nontender. There is diffuse maculopapular rash over his entire abdomen and back, including his arms. He has got diffuse erythema of his leg and the dressing was removed from the leg, and he has some weeping serous fluid, but otherwise it is difficult to differentiate this erythema. LABORATORY: Notable for a white count of 19.7 today hemoglobin 12.4, platelets were not reported. He had clumping. His eosinophils yesterday were 5.6%, today are normal. His BUN and creatinine are 38 and 1.5. LFTs are normal. IMPRESSION: In summary, this is a morbidly obese 57-year-old man admitted with a drug rash. His liver function tests are normal, and he has no evidence of any mucosal involvement. I discussed the case with Dr. Belcher who had seen him as an outpatient and switched the Augmentin to doxycycline which he took for the weekend. He has no fevers, and he feels well. I would agree with steroids for the drug rash. I would treat him with Zyvox for possible cellulitis. He has also acute renal insufficiency and I would like to stay away from vancomycin, and would certainly have added AUGMENTIN as an allergy. Further recommendations to follow. Suspect his leukocytosis is due to steroids. VIJAY GOLD M.D. [id number] MTDD
[2018-12-18] MEDS ORDERED: ROSUVASTATIN CA 10 MG TABLET (FP) ONE (20:52)
[2018-12-18] MEDS: ROSUVASTATIN CA 20 MG TABLET (FP) PO SCH (21:43)
[2018-12-18] MEDS: BUDESONIDE/FORMETEROL FUMARATE 160/4.5 mcg INHALER IH SCH (21:43)
[2018-12-19] MEDS: methylPREDNISolone NA SUCC 40 MG/1 ML VIAL IVPB SCH ×4 (03:57→21:00)
[2018-12-19] MEDS: LINEZOLID 600 MG PREMIX BAG 600 MG/300 ML BAG IVPB SCH ×2 (03:57→15:14)
[2018-12-19] MEDS: metFORMIN HCL 500 MG TABLET (FP) PO SCH (06:01)
[2018-12-19 07:10] LABS: BASO % 0.5 % (0-2.0); EOS % 0.3 % (0-4.5); HEMATOCRIT 37.5 % (35.4-49); HEMOGLOBIN 11.8 GM/dL (11.7-16.9); LYMPH % 5.2 % (8-40); MCH 26.3 pg (25.7-33.7); MCHC 31.5 g/dl (32.0-35.9); MEAN CELL VOLUME 83.4 fl (80-96); MEAN PLT VOLUME 9.2 fl (7.5-11.1); MONO % 2.9 % (3.8-10.2); NEUT % 91.1 % (42.8-82.8); PLATELET COUNT 122 K/MM3 (134-434); RBC 4.49 M/mm3 (4.00-5.60); WHITE BLOOD COUNT 16.5 K/mm3 (4.0-10.0)
[2018-12-19 07:34] LABS: ANION GAP 5 MMOL/L (8-16); BLOOD UREA NITROGEN 42 mg/dL (7-18); CALCIUM 8.7 mg/dL (8.5-10.1); CHLORIDE 97 mmol/L (98-107); CO2 30 mmol/L (21-32); CREATININE 1.1 mg/dL (0.55-1.3); GLUCOSE,RANDOM 183 mg/dL (74-106); POTASSIUM 4.7 mmol/L (3.5-5.1); SODIUM 132 mmol/L (136-145)
[2018-12-19] MEDS: LISINOPRIL 5 MG TABLET (FP) PO SCH (09:39)
[2018-12-19] MEDS: HYDROCHLOROTHIAZIDE 25 MG TABLET (FP) PO SCH (09:40)
[2018-12-19] MEDS: BUDESONIDE/FORMETEROL FUMARATE 160/4.5 mcg INHALER IH SCH ×2 (09:47→22:13)
[2018-12-19 11:28] LABS: ANISOCYTOSIS 2+; MACROCYTOSIS 0; PLATELET ESTIMATE DECREASED
[2018-12-19 11:34] VITALS: BMI 60.2
--- NOTE | 2018-12-19 13:38 | PN ---
Progress Note, Physician History of Present Illness: less sob w inhaler resting snoaring while asleep ? bob lt leg better rash better - Current Medication List Current Medications: Active Medications Albuterol Sulfate (Ventolin Hfa Inhaler -) 2 puff IH Q4H PRN PRN Reason: SHORT OF BREATH/WHEEZING Budesonide/Formoterol Fumarate (Symbicort 160/4.5mcg -) 2 puff IH BID [facility] Last Admin: 12/19/18 09:47 Dose: 2 puff Hydrochlorothiazide (Hctz -) 25 mg PO DAILY [facility] Last Admin: 12/19/18 09:40 Dose: 25 mg Hydroxyzine HCl (Atarax -) 25 mg PO TID PRN PRN Reason: FOR ITCHING Last Admin: 12/18/18 21:53 Dose: 25 mg Linezolid (Zyvox 600 Mg Premix Bag (Restricted To Id) -) 600 mg in 300 mls @ 300 mls/hr IVPB Q12H [facility]; Protocol Last Admin: 12/19/18 03:57 Dose: 300 mls/hr Lisinopril (Prinivil) 5 mg PO DAILY [facility] Last Admin: 12/19/18 09:39 Dose: 5 mg Metformin HCl (Glucophage -) 500 mg PO DAILY@0700 [facility] Last Admin: 12/19/18 06:01 Dose: 500 mg Methylprednisolone Sodium Succinate (Solu-Medrol -) 40 mg IVPB Q6H-IV [facility] Last Admin: 12/19/18 09:40 Dose: 40 mg Rivaroxaban (Xarelto -) 20 mg PO DAILY@1800 [facility] Rosuvastatin Calcium (Crestor -) 20 mg PO HS [facility] Last Admin: 12/18/18 21:43 Dose: 20 mg - Objective Vital Signs: Vital Signs Temperature 97.6 F 12/19/18 11:28 Pulse Rate 77 12/19/18 11:28 Respiratory Rate 20 12/19/18 11:28 Blood Pressure 114/57 L 12/19/18 11:28 O2 Sat by Pulse Oximetry (%) 96 12/19/18 10:36 Constitutional: Yes: Well Nourished Eyes: Yes: WNL HENT: Yes: WNL Neck: Yes: WNL Cardiovascular: Yes: WNL Respiratory: Yes: SOB on Exertion Gastrointestinal: Yes: WNL ...Rectal Exam: Yes: Deferred Genitourinary: Yes: WNL Breast(s): Yes: WNL Musculoskeletal: Yes: WNL Extremities: Yes: Other (lt leg slightley better) Edema: Yes Edema: LLE: 3+, RLE: 2+ Peripheral Pulses WNL: Yes Wound/Incision: Yes: Clean/Dry Neurological: Yes: WNL ...Motor Strength: WNL Psychiatric: Yes: WNL Labs: CBC, BMP 12/19/18 06:30 12/19/18 06:30 Assessment/Plan agree w zyvox will start decreasing steroids tommorow cont all tx as is vasc seen pt althogh no note wriiten
[2018-12-19] MEDS: hydrOXYzine HCL 25 MG TABLET (FP) PO PRN ×2 (13:51→22:59)
[2018-12-19] MEDS: TRIAMCINOLONE ACET 0.1% CREAM 80 GM TUBE TP SCH (15:19)
--- NOTE | 2018-12-19 15:54 | CONSULT ---
- Consultation REQUESTING PROVIDER: CONSULT REQUEST: We have been asked to surgically evaluate this patient for ( LLE cellulitis/wound/drainage). PCP:Lalo Lindsey HISTORY OF PRESENT ILLNESS: (cellulitis/dvt). PCP: Lalo Lindsey HISTORY OF PRESENT ILLNESS: 57 y/o M w/ PMHx morbid obesity, lymphadema, HLD, DM , depression, HTN, and h/o DVT (axillary/femoral) now admitted from wound care after being sent by Dr Mercer for erythemayous rash all over body s/p augmentin. Pt recently admitted 12/04-12/10 for fever and lle cellulitis. Pt reports he was d/ c'ed on Augmentin which he took as prescribed. Reports upper body rash a few days after initiating the medication. Pt was seen by Dr Mercer who changed abx to Doxycycline. Pt reports no improvement in LLE drainage. Has been covering leg with gauze. Denies chest pain, nausea, diarrhea, vomiting, dysuria, or headache. Has had some sob over the past few days. PMHx: as above PSHx: denies REVIEW OF SYSTEMS: CONSTITUTIONAL: +fever CARDIOVASCULAR: Absent: chest pain, syncope RESPIRATORY: Absent: cough +shortness of breath GASTROINTESTINAL: Absent: abdominal pain PHYSICAL EXAM: GENERAL: Awake, alert, and fully oriented, in no acute distress. HEAD: Normal with no signs of trauma. LOWER EXTREMITIES: RLE with 2+ pitting edema to knee, no erythema no open wounds. LLE with edema and erythema from foot to mid calf, approx 4x4cm superficial ulcer to L lateral distal calf with moderate serous oozing. No crepitus, no palpable collections. Large blister over 2nd-4th met heads, fluid filled, no erythema or drainage. Neuro: 5/5 b/l dorsi/plantar flexion, silt b/l. Vasc: Unable to appreciate pulses due to edema, feet warm, well perfused. Vital Signs Temp 98.1 F 12/19/18 14:46 Pulse 85 12/19/18 14:46 Resp 18 12/19/18 14:46 BP 121/54 L 12/19/18 14:46 Pulse Ox 96 12/19/18 10:36 Intake & Output 12/18/18 12/19/18 12/19/18 23:59 11:59 23:59 Intake Total 150 880 400 Balance 150 880 400 Weight 385 lb Intake: IV 150 500 s/l 150 500 Oral 380 400 Other: Voiding Method Toilet Toilet Bowel Movement Yes Yes # Bowel Movements 1 Height 5 ft 7 in Body Mass Index (BMI) 60.2 Weight Measurement Method Built in [facility] CBC, BMP 12/19/18 06:30 12/19/18 06:30 A/P: 57 y/o M w/ PMHx lymphadema, HLD, DM, depression, HTN, and h/o DVT ( axillary/femoral) now a/w fever and LLE cellulitis/skin weeping. LLE with cellulitis, +weeping from superficial LLE wound. Afebrile with leukocytosis 16.k w/ left shift -Continue Iv abx per ID -Strict LLE elevation while at rest -Calcium alginate to LLE wound, cover with 4x4's kerlix/zuleika above d/w attending Dr Magdaleno
--- NOTE | 2018-12-19 16:26 | PN ---
Progress Note (short form) - Note Progress Note: doing much better today less rash leg just wrapped by surgery Vital Signs Period Temp Pulse Resp BP Sys/Sanz Pulse Ox Last 24 Hr 97.6 F-98.1 F 72-94 16-20 98-121/50-63 96-97 cor-rrr lungs clear no oral lesions abd soft,nt ext +lymphedema less erythema, rash less red no new lesions CBC, BMP 12/19/18 06:30 12/19/18 06:30 Microbiology 12/17/18 18:01 Blood - Peripheral Venous Blood Culture - Preliminary NO GROWTH OBTAINED AFTER 24 HOURS, INCUBATION TO CONTINUE FOR 4 DAYS. 12/17/18 18:01 Blood - Peripheral Venous Blood Culture - Preliminary NO GROWTH OBTAINED AFTER 24 HOURS, INCUBATION TO CONTINUE FOR 4 DAYS. imp/reccd drug rash to -Augmentin-improving on steroids cannot r/o cellulitis of the RLE- continue zyvox day #2 chronic lymphedema morbid obesity Problem List - Problems (1) Drug rash Code(s): L27.0 - GEN SKIN ERUPTION DUE TO DRUGS AND MEDS TAKEN INTERNALLY (2) Cellulitis of left foot Code(s): L03.116 - CELLULITIS OF LEFT LOWER LIMB (3) Lymphedema Code(s): I89.0 - LYMPHEDEMA, NOT ELSEWHERE CLASSIFIED (4) Morbid obesity Code(s): E66.01 - MORBID (SEVERE) OBESITY DUE TO EXCESS CALORIES
[2018-12-19] MEDS: RIVAROXABAN 20 MG TABLET PO SCH ×2 (17:18→18:20)
[2018-12-19] MEDS ORDERED: ROSUVASTATIN CA 10 MG TABLET (FP) ONE (21:12)
[2018-12-19] MEDS: ROSUVASTATIN CA 20 MG TABLET (FP) PO SCH (22:12)
[2018-12-20] MEDS: methylPREDNISolone NA SUCC 40 MG/1 ML VIAL IVPB SCH ×4 (02:41→21:49)
[2018-12-20] MEDS: LINEZOLID 600 MG PREMIX BAG 600 MG/300 ML BAG IVPB SCH ×2 (02:41→14:38)
[2018-12-20] MEDS: metFORMIN HCL 500 MG TABLET (FP) PO SCH (06:43)
[2018-12-20 07:30] LABS: BASO % 0.4 % (0-2.0); EOS % 0.4 % (0-4.5); LYMPH % 5.3 % (8-40); MCH 26.2 pg (25.7-33.7); MCHC 31.7 g/dl (32.0-35.9); MEAN CELL VOLUME 82.8 fl (80-96); MEAN PLT VOLUME 9.1 fl (7.5-11.1); MONO % 3.4 % (3.8-10.2); NEUT % 90.5 % (42.8-82.8); RBC 4.59 M/mm3 (4.00-5.60); WHITE BLOOD COUNT 16.8 K/mm3 (4.0-10.0)
[2018-12-20 07:57] LABS: ANION GAP 4 MMOL/L (8-16); BLOOD UREA NITROGEN 32 mg/dL (7-18); CALCIUM 8.8 mg/dL (8.5-10.1); CHLORIDE 98 mmol/L (98-107); CO2 31 mmol/L (21-32); CREATININE 0.9 mg/dL (0.55-1.3); GLUCOSE,RANDOM 182 mg/dL (74-106); POTASSIUM 4.8 mmol/L (3.5-5.1); SODIUM 134 mmol/L (136-145)
[2018-12-20] MEDS ORDERED: PT OWN MED DRAWER 7, Y5N ONE (09:51)
[2018-12-20] MEDS: BUDESONIDE/FORMETEROL FUMARATE 160/4.5 mcg INHALER IH SCH ×2 (09:54→21:48)
[2018-12-20] MEDS: HYDROCHLOROTHIAZIDE 25 MG TABLET (FP) PO SCH (09:54)
[2018-12-20] MEDS: LISINOPRIL 5 MG TABLET (FP) PO SCH (09:54)
[2018-12-20] MEDS: TRIAMCINOLONE ACET 0.1% CREAM 80 GM TUBE TP SCH (09:55)
[2018-12-20 11:34] LABS: PLATELET ESTIMATE DECREASED
--- NOTE | 2018-12-20 11:50 | PN ---
Progress Note, Physician Chief Complaint: Less pruritus today. History of Present Illness: Rash slowly resolving. NL BM's Tolerating diet OOB to chair SOB less w inhalers and steroids. LLE blisters scabbing and resolving slowly, dresses intact. - Current Medication List Current Medications: Active Medications Albuterol Sulfate (Ventolin Hfa Inhaler -) 2 puff IH Q4H PRN PRN Reason: SHORT OF BREATH/WHEEZING Budesonide/Formoterol Fumarate (Symbicort 160/4.5mcg -) 2 puff IH BID [facility] Last Admin: 12/20/18 09:54 Dose: 2 puff Hydrochlorothiazide (Hctz -) 25 mg PO DAILY [facility] Last Admin: 12/20/18 09:54 Dose: 25 mg Hydroxyzine HCl (Atarax -) 25 mg PO TID PRN PRN Reason: FOR ITCHING Last Admin: 12/19/18 22:59 Dose: 25 mg Linezolid (Zyvox 600 Mg Premix Bag (Restricted To Id) -) 600 mg in 300 mls @ 300 mls/hr IVPB Q12H [facility]; Protocol Last Admin: 12/20/18 02:41 Dose: 300 mls/hr Lisinopril (Prinivil) 5 mg PO DAILY [facility] Last Admin: 12/20/18 09:54 Dose: 5 mg Metformin HCl (Glucophage -) 500 mg PO DAILY@0700 [facility] Last Admin: 12/20/18 06:43 Dose: 500 mg Methylprednisolone Sodium Succinate (Solu-Medrol -) 40 mg IVPB Q6H-IV [facility] Last Admin: 12/20/18 09:00 Dose: 40 mg Rivaroxaban (Xarelto -) 20 mg PO DAILY@1800 [facility] Last Admin: 12/19/18 18:20 Dose: Not Given Rosuvastatin Calcium (Crestor -) 20 mg PO HS [facility] Last Admin: 12/19/18 22:12 Dose: 20 mg Triamcinolone Acetonide (Triamcinolone Acetonide) 1 applic TP DAILY [facility] Last Admin: 12/20/18 09:55 Dose: 1 applic - Objective Vital Signs: Vital Signs Temperature 97.3 F L 12/20/18 07:50 Pulse Rate 79 12/20/18 07:50 Respiratory Rate 20 12/20/18 07:50 Blood Pressure 125/58 L 12/20/18 07:50 O2 Sat by Pulse Oximetry (%) 93 L 12/20/18 09:00 Constitutional: Yes: Well Nourished Eyes: Yes: WNL HENT: Yes: WNL Neck: Yes: WNL Cardiovascular: Yes: WNL Respiratory: Yes: WNL, On Nasal O2, SOB on Exertion Gastrointestinal: Yes: Tenderness, Rebound ...Rectal Exam: Yes: WNL, Deferred Genitourinary: Yes: WNL Breast(s): Yes: WNL Musculoskeletal: Yes: WNL Extremities: Yes: Other (b/l lymphedema) Edema: Yes Edema: LLE: 2+, RLE: 2+ Peripheral Pulses WNL: Yes Peripheral Pulses: Left Radial: 2+, Right Radial: 2+, Left Doralis Pedis: 2+, Right Dorsalis Pedis: 2+, Left Femoral: 2+, Right Femoral: 2+ Integumentary: Yes: Erythema, Other (venous stasis left leg cellulitis resolving slowly.) Wound/Incision: Yes: Dressing Dry and Intact Neurological: Yes: WNL ...Motor Strength: WNL Psychiatric: Yes: WNL Labs: CBC, BMP 12/20/18 06:05 12/20/18 06:05 Assessment/Plan Derm to see pt akira Keep steroids same dose IV. Need proper tubing for platelet count to ascertain fictitious clumping. Increase mETFORMIN 500 BID Continue Linezolid 600 mg BID as per ID. Continue all other Rx as is. Explained to pt totally his rash and ? w/u for urticaria if permitted in hospital computer.
[2018-12-20] MEDS ORDERED: INSULIN (NOVOLOG) ASPART 100 UNITS/ML 10ML VIAL ONE (16:24)
[2018-12-20] MEDS: RIVAROXABAN 20 MG TABLET PO SCH (17:28)
[2018-12-20] MEDS ORDERED: ROSUVASTATIN CA 10 MG TABLET (FP) ONE (21:32)
[2018-12-20] MEDS: ROSUVASTATIN CA 20 MG TABLET (FP) PO SCH (21:49)
[2018-12-21] MEDS: methylPREDNISolone NA SUCC 40 MG/1 ML VIAL IVPB SCH ×2 (02:19→09:28)
[2018-12-21] MEDS: LINEZOLID 600 MG PREMIX BAG 600 MG/300 ML BAG IVPB SCH ×2 (02:21→18:06)
[2018-12-21] MEDS: metFORMIN HCL 500 MG TABLET (FP) PO SCH (05:59)
[2018-12-21 08:35] LABS: ANION GAP 6 MMOL/L (8-16); BLOOD UREA NITROGEN 26 mg/dL (7-18); CALCIUM 9.4 mg/dL (8.5-10.1); CHLORIDE 98 mmol/L (98-107); CO2 31 mmol/L (21-32); CREATININE 0.9 mg/dL (0.55-1.3); GLUCOSE,RANDOM 188 mg/dL (74-106); POTASSIUM 4.9 mmol/L (3.5-5.1); SODIUM 134 mmol/L (136-145)
[2018-12-21 08:37] LABS: BASO % 0.7 % (0-2.0); EOS % 0.1 % (0-4.5); HEMATOCRIT 41.1 % (35.4-49); HEMOGLOBIN 12.9 GM/dL (11.7-16.9); LYMPH % 5.1 % (8-40); MCH 26.3 pg (25.7-33.7); MCHC 31.3 g/dl (32.0-35.9); MEAN PLT VOLUME 8.8 fl (7.5-11.1); MONO % 4.8 % (3.8-10.2); NEUT % 89.3 % (42.8-82.8); PLATELET COUNT 161 K/MM3 (134-434); RBC 4.89 M/mm3 (4.00-5.60); RDW 16.9 % (11.9-15.9); WHITE BLOOD COUNT 15.3 K/mm3 (4.0-10.0)
[2018-12-21] MEDS ORDERED: PT OWN MED DRAWER 7, Y5N ONE ×2 (09:01→20:40)
[2018-12-21] MEDS: TRIAMCINOLONE ACET 0.1% CREAM 80 GM TUBE TP SCH (09:27)
[2018-12-21] MEDS: BUDESONIDE/FORMETEROL FUMARATE 160/4.5 mcg INHALER IH SCH ×2 (09:27→21:35)
[2018-12-21] MEDS: HYDROCHLOROTHIAZIDE 25 MG TABLET (FP) PO SCH (09:28)
[2018-12-21 11:16] LABS: ANISOCYTOSIS 0; MACROCYTOSIS 0; PLATELET ESTIMATE NORMAL
--- NOTE | 2018-12-21 13:36 | PN ---
Progress Note, Physician Chief Complaint: less eruption derm in the rm agrees w ? plan - Current Medication List Current Medications: Active Medications Albuterol Sulfate (Ventolin Hfa Inhaler -) 2 puff IH Q4H PRN PRN Reason: SHORT OF BREATH/WHEEZING Budesonide/Formoterol Fumarate (Symbicort 160/4.5mcg -) 2 puff IH BID [facility] Last Admin: 12/21/18 09:27 Dose: 2 puff Hydrochlorothiazide (Hctz -) 25 mg PO DAILY [facility] Last Admin: 12/21/18 09:28 Dose: 25 mg Hydroxyzine HCl (Atarax -) 25 mg PO TID PRN PRN Reason: FOR ITCHING Last Admin: 12/19/18 22:59 Dose: 25 mg Linezolid (Zyvox 600 Mg Premix Bag (Restricted To Id) -) 600 mg in 300 mls @ 300 mls/hr IVPB Q12H [facility]; Protocol Last Admin: 12/21/18 02:21 Dose: 300 mls/hr Metformin HCl (Glucophage -) 500 mg PO DAILY@0700 [facility] Last Admin: 12/21/18 05:59 Dose: 500 mg Methylprednisolone Sodium Succinate (Solu-Medrol -) 40 mg IVPB Q6H-IV [facility] Last Admin: 12/21/18 09:28 Dose: 40 mg Rivaroxaban (Xarelto -) 20 mg PO DAILY@1800 [facility] Last Admin: 12/20/18 17:28 Dose: 20 mg Rosuvastatin Calcium (Crestor -) 20 mg PO HS [facility] Last Admin: 12/20/18 21:49 Dose: 20 mg Triamcinolone Acetonide (Triamcinolone Acetonide) 1 applic TP DAILY [facility] Last Admin: 12/21/18 09:27 Dose: 1 applic - Objective Vital Signs: Vital Signs Temperature 98.1 F 12/21/18 06:00 Pulse Rate 75 12/21/18 06:00 Respiratory Rate 20 12/21/18 06:00 Blood Pressure 134/79 12/21/18 06:00 O2 Sat by Pulse Oximetry (%) 96 12/20/18 21:00 Constitutional: Yes: Well Nourished Eyes: Yes: WNL HENT: Yes: WNL Neck: Yes: WNL Cardiovascular: Yes: WNL Respiratory: Yes: WNL Gastrointestinal: Yes: WNL ...Rectal Exam: Yes: Deferred Genitourinary: Yes: WNL Breast(s): Yes: WNL Musculoskeletal: Yes: WNL Extremities: Yes: Other (lt dressing intact) Edema: Yes Edema: LLE: 2+, RLE: 2+ Integumentary: Yes: Venous Stasis Changes Wound/Incision: Yes: Clean/Dry Neurological: Yes: WNL ...Motor Strength: WNL Psychiatric: Yes: WNL Labs: CBC, BMP 12/21/18 06:30 12/21/18 06:30 Assessment/Plan derm appreciated drud rx as per derm cont antihistamines ? steroid reduction ? d/c if ok w vasc and id
--- NOTE | 2018-12-21 16:11 | PN ---
Progress Note (short form) - Note Progress Note: doing much better today still some drug rash leg is weeping serous fluid Vital Signs Period Temp Pulse Resp BP Sys/Sanz Pulse Ox Last 24 Hr 97.5 F-98.1 F 71-80 18-20 117-142/48-89 96-96 cor-rrr lungs clear abd soft,nt ext +lymphedema serous drainage from left foot no purulence less erythema, rash less red no new lesions CBC, BMP 12/21/18 06:30 12/21/18 06:30 Microbiology 12/17/18 18:01 Blood - Peripheral Venous Blood Culture - Preliminary NO GROWTH OBTAINED AFTER 72 HOURS, INCUBATION TO CONTINUE FOR 2 DAYS. 12/17/18 18:01 Blood - Peripheral Venous Blood Culture - Preliminary NO GROWTH OBTAINED AFTER 72 HOURS, INCUBATION TO CONTINUE FOR 2 DAYS. imp/reccd drug rash to -Augmentin-improving on steroids cannot r/o cellulitis of the RLE- can seitch to po clindamycin 300 tid for one week with close wound care f/u chronic lymphedema morbid obesity Problem List - Problems (1) Drug rash Code(s): L27.0 - GEN SKIN ERUPTION DUE TO DRUGS AND MEDS TAKEN INTERNALLY (2) Cellulitis of left foot Code(s): L03.116 - CELLULITIS OF LEFT LOWER LIMB (3) Lymphedema Code(s): I89.0 - LYMPHEDEMA, NOT ELSEWHERE CLASSIFIED (4) Morbid obesity Code(s): E66.01 - MORBID (SEVERE) OBESITY DUE TO EXCESS CALORIES
--- NOTE | 2018-12-21 16:31 | PN ---
Progress Note (short form) - Note Progress Note: Vascular Surgery Pt seen and examined. Doing better. Will need profore dressing for compression. Will place and have pt come back on monday for dressing change. Evgeny Magdaleno DO
[2018-12-21] MEDS ORDERED: methylPREDNISolone NA SUCC 40 MG/1 ML VIAL IVPUSH SCH (18:00)
[2018-12-21] MEDS: RIVAROXABAN 20 MG TABLET PO SCH (18:06)
[2018-12-21 20:35] VITALS: TEMP 97.3
[2018-12-21] MEDS ORDERED: ROSUVASTATIN CA 10 MG TABLET (FP) ONE (21:11)
[2018-12-21] MEDS: TRIAMCINOLONE ACET 0.1% CREAM 15 GM TUBE TP SCH (21:35)
[2018-12-21] MEDS: ROSUVASTATIN CA 20 MG TABLET (FP) PO SCH (21:36)
[2018-12-21] MEDS ORDERED: methylPREDNISolone NA SUCC 40 MG/1 ML VIAL IVPB SCH (22:00)
[2018-12-22] MEDS: LINEZOLID 600 MG PREMIX BAG 600 MG/300 ML BAG IVPB SCH (04:37)
[2018-12-22] MEDS: metFORMIN HCL 500 MG TABLET (FP) PO SCH (06:06)
[2018-12-22 08:06] LABS: BASO % 0.7 % (0-2.0); EOS % 0.3 % (0-4.5); HEMATOCRIT 40.1 % (35.4-49); HEMOGLOBIN 12.8 GM/dL (11.7-16.9); LYMPH % 7.7 % (8-40); MCH 26.3 pg (25.7-33.7); MEAN CELL VOLUME 82.4 fl (80-96); MONO % 7.8 % (3.8-10.2); NEUT % 83.5 % (42.8-82.8); RBC 4.86 M/mm3 (4.00-5.60); RDW 16.8 % (11.9-15.9); WHITE BLOOD COUNT 13.9 K/mm3 (4.0-10.0)
[2018-12-22 08:32] LABS: ALBUMIN 2.7 g/dl (3.4-5.0); ALK PHOS 43 U/L (45-117); ANION GAP 7 MMOL/L (8-16); BILIRUBIN,TOTAL 0.4 mg/dL (0.2-1); BLOOD UREA NITROGEN 26 mg/dL (7-18); CALCIUM 9.1 mg/dL (8.5-10.1); CHLORIDE 96 mmol/L (98-107); CO2 32 mmol/L (21-32); CREATININE 0.9 mg/dL (0.55-1.3); GLUCOSE,RANDOM 171 mg/dL (74-106); POTASSIUM 4.6 mmol/L (3.5-5.1); SGOT/AST 19 U/L (15-37); SGPT/ALT 45 U/L (13-61); SODIUM 135 mmol/L (136-145); TOT PROT 6.4 g/dl (6.4-8.2)
--- NOTE | 2018-12-22 09:02 | DS ---
Physical Examination Vital Signs: Vital Signs Temperature 97.3 F L 12/22/18 07:07 Pulse Rate 85 12/22/18 07:07 Respiratory Rate 20 12/22/18 07:07 Blood Pressure 157/92 12/22/18 07:07 O2 Sat by Pulse Oximetry (%) 96 12/21/18 21:00 Constitutional: Yes: Well Nourished Eyes: Yes: WNL HENT: Yes: WNL Neck: Yes: WNL Cardiovascular: Yes: WNL Respiratory: Yes: SOB on Exertion Gastrointestinal: Yes: WNL Renal/: Yes: WNL Breast(s): Yes: WNL Musculoskeletal: Yes: WNL Extremities: Yes: Other (lt leg better) Edema: Yes Edema: LLE: 2+, RLE: 2+ Peripheral Pulses WNL: Yes Integumentary: Yes: Rash, Venous Stasis Changes Wound/Incision: Yes: Clean/Dry, Dressing Dry and Intact Neurological: Yes: WNL ...Motor Strength: WNL Labs: CBC, BMP 12/22/18 06:30 12/22/18 06:30 Discharge Summary Reason For Visit: CELLULITIS OF LOWER EXTERMITY Current Active Problems Cellulitis of left leg (Acute) Drug rash (Acute) Morbid obesity (Acute) - Instructions Diet, Activity, Other Instructions: pic up meds [facility] cont all other meds at home as is /u monday wd care see me mon noon my office Disposition: HOME - Home Medications Comprehensive Discharge Medication List: Ambulatory Orders Hydrochlorothiazide [Hctz -] 25 mg PO DAILY #0 tablet 01/30/16 Lisinopril [Prinivil] 5 mg PO DAILY 06/04/18 Metformin HCl [Glucophage] 500 mg PO DAILY 06/04/18 Rosuvastatin [Crestor -] 20 mg PO DAILY 06/04/18 Rivaroxaban [Xarelto] 20 mg PO DAILY 12/17/18
[2018-12-22] MEDS ORDERED: PT OWN MED DRAWER 7, Y5N ONE (09:20)
[2018-12-22] MEDS: HYDROCHLOROTHIAZIDE 25 MG TABLET (FP) PO SCH (09:26)
[2018-12-22] MEDS: TRIAMCINOLONE ACET 0.1% CREAM 15 GM TUBE TP SCH (09:26)
[2018-12-22 10:05] LABS: ANISOCYTOSIS 1+; MACROCYTOSIS 0
[2018-12-22 10:42] VITALS: BP 139/72; PULSE 70
== END 2018-12-22 10:47 | disposition home or self-care (01) | DRG 603 ==
LOC: JER 14:55 → JERBED 17:40 → J8W 12-18 19:06
PROVIDERS: ADMIT Family Medicine; ATTEND Family Medicine
DX: L03.116 Cellulitis of left lower limb (principal); Z68.44 Body mass index [BMI] 60.0-69.9, adult; J96.12 Chronic respiratory failure with hypercapnia; L27.0 Generalized skin eruption due to drugs and medicaments taken internally; E66.01 Morbid (severe) obesity due to excess calories; I89.0 Lymphedema, not elsewhere classified; E78.5 Hyperlipidemia, unspecified; E11.9 Type 2 diabetes mellitus without complications
CPT/HCPCS: 36415; 71045-TC-FY; 80048; 80053; 82962; 85025; 85651; 86038; 86140; 86352; 86593; 86618; 86765; 87040; 93005; 93010; 99285-25; J7030

== ENCOUNTER 2019-01-04 11:07 | Inpatient (IN) | payer OTHER ==
--- NOTE | 2019-01-04 12:02 | PDOC ---
History of Present Illness - General Chief Complaint: Wound Stated Complaint: WOUND Time Seen by Provider: 01/04/19 11:54 - History of Present Illness Initial Comments: 01/04/19 13:03 The patient is a 58 year old male with a history of HTN, HLD, DM, Lymphedema who presents for evaluation of a right lower extremity wound. The patient reports that he follows in wound clinic for chronic wounds to his left lower extremity for which he has been on several antibiotics in the past. He has noted worsening pain and redness to the right lower extremity over the past week and was evaluated by wound care clinic today and was sent to the ED for admission for IV antibiotics. The patient otherwise denies fevers, chills, SOB, chest pain , nausea, vomiting, abdominal pain, or changes with urination or bowel movements. Past History - Past Medical History Allergies/Adverse Reactions: Allergies Allergy/AdvReac Type Severity Reaction Status Date / Time amoxicillin [From Augmentin] Allergy Intermediate Rash Verified 01/04/19 11:17 clavulanic acid Allergy Intermediate Rash Verified 01/04/19 11:17 [From Augmentin] Home Medications: Ambulatory Orders Metformin HCl [Glucophage] 500 mg PO DAILY 06/04/18 Rosuvastatin [Crestor -] 20 mg PO DAILY 06/04/18 Rivaroxaban [Xarelto] 20 mg PO DAILY 12/17/18 Clindamycin [Cleocin -] 300 mg PO BID 12/27/18 Hydrochlorothiazide [Hctz -] 50 mg PO DAILY 01/04/19 Anemia: No Asthma: No Cancer: No Cardiac Disorders: No CVA: No COPD: No CHF: No Dementia: No Diabetes: Yes GI Disorders: No Disorders: No HTN: Yes Hypercholesterolemia: Yes Liver Disease: No Seizures: No Thyroid Disease: No - Immunization History Immunization Up to Date: Yes - Suicide/Smoking/Psychosocial Hx Smoking History: Never smoked Have you smoked in the past 12 months: No Hx Alcohol Use: No Drug/Substance Use Hx: No Substance Use Type: None Hx Substance Use Treatment: No Review of Systems - Review of Systems Comments:: 01/04/19 13:15 Constitutional: No fevers, chills, fatigue, malaise HEENT: No Rhinorrhea, nasal congestion, visual changes Cardiovascular: No chest pain, syncope, palpitations, lightheadedness Respiratory: No Cough, SOB, Hemoptysis, Gastrointestinal: No Abdominal pain, Nausea, Vomiting, Constipation, Diarrhea, Melena Genitourinary: No Dysuria, Frequency, Urgency, Hesitancy, Hematuria, Flank pain Musculoskeletal: Pain to the right lower extremity. No Myalgia, arthralgia Skin: Redness to the right lower extremity. No itching, bruising, pallor Neurologic: No Headache, Dizziness, Numbness, Weakness, or Tingling Psychiatric: No Hallucinations. No SI or HI *Physical Exam - Vital Signs Last Vital Signs Temp Pulse Resp BP Pulse Ox 98.0 F 82 18 128/68 95 01/04/19 11:18 01/04/19 11:18 01/04/19 11:18 01/04/19 11:18 01/04/19 11:18 - Physical Exam Comments: 01/04/19 13:16 General Appearance: Nourished. No Apparent Distress HEENT: No Pharyngeal Erythema, Tonsillar Exudate, Tonsillar Erythema Neck: No Cervical Lymphadenopathy Respiratory/Chest: Lungs Clear, Normal Breath Sounds. No Crackles, Rales, Rhonchi, Wheezing Cardiovascular: Regular Rhythm, Regular Rate. No Murmur, Gallops, Rubs Gastrointestinal/Abdominal: Normal Bowel Sounds, Soft. No Guarding, Rebound, Tenderness Musculoskeletal: No CVA Tenderness Extremity: Erythema and warmth to the right lower extremity extending from the dorsal aspect of the foot to the proximal calf with serous drainage from the lateral aspect of the calf. Normal Capillary Refill Integumentary: Normal Color, Dry, Warm Neurologic: Fully Oriented, Alert, Normal Mood/Affect, Normal Response, ED Treatment Course - LABORATORY CBC & Chemistry Diagram: 01/04/19 13:20 01/04/19 13:20 Medical Decision Making - Medical Decision Making 01/04/19 13:18 The patient is a 58 year old male with a history of HTN, HLD, DM, Lymphedema who presents for evaluation of a right lower extremity wound. Given the patient 's history and physical exam, we will obtain a cbc, cmp, blood cultures, wound cultures, ekg, plain films to evaluate further. We will treat with vanc and cefepime and continue to monitor and reassess while here in the ED. The patient will likely require admission for further management. 01/04/19 15:21 CBC, cmp are unremarkable. We discussed the case with the admitting team who accepted the patient for admission. *DC/Admit/Observation/Transfer Diagnosis at time of Disposition: Cellulitis Qualifiers: Site of cellulitis: extremity Site of cellulitis of extremity: lower extremity Laterality: right Qualified Code(s): L03.115 - Cellulitis of right lower limb - Discharge Dispostion Condition at time of disposition: Stable Decision to Admit order: Yes - Referrals - Patient Instructions - Post Discharge Activity
[2019-01-04] MEDS ORDERED: VANCOMYCIN HCL 1,500 MG in DEXTROSE 5%-WATER - 500 ML IVPB ONE (12:32)
[2019-01-04] MEDS ORDERED: CEFEPIME HCL/D5W 1 GM/50 ML BAG IVPB ONE (12:35)
[2019-01-04] MEDS ORDERED: VANCOMYCIN 500 MG VIAL (RESTRICTED TO ID ONLY) ONE (12:46)
[2019-01-04] MEDS ORDERED: VANCOMYCIN 1 GRAM (PRE-DOCKED) 1,000 MG/250 ML BAG IVPB ONE (12:47)
[2019-01-04] MEDS ORDERED: CEFEPIME 1 GM/100 ML BAG IVPB ONE (12:47)
[2019-01-04 13:33] LABS: EOS % 15.1 % (0-4.5); HEMATOCRIT 38.4 % (35.4-49); HEMOGLOBIN 12.6 GM/dL (11.7-16.9); LYMPH % 12.5 % (8-40); MCH 27.1 pg (25.7-33.7); MCHC 32.7 g/dl (32.0-35.9); MEAN PLT VOLUME 8.6 fl (7.5-11.1); MONO % 9.1 % (3.8-10.2); NEUT % 62.3 % (42.8-82.8); PLATELET COUNT 152 K/MM3 (134-434); RBC 4.63 M/mm3 (4.00-5.60); WHITE BLOOD COUNT 10.8 K/mm3 (4.0-10.0)
[2019-01-04 14:08] LABS: ALBUMIN 2.9 g/dl (3.4-5.0); ALK PHOS 48 U/L (45-117); ANION GAP 6 MMOL/L (8-16); BILIRUBIN,TOTAL 0.3 mg/dL (0.2-1); BLOOD UREA NITROGEN 13 mg/dL (7-18); CALCIUM 9.1 mg/dL (8.5-10.1); CHLORIDE 102 mmol/L (98-107); CO2 33 mmol/L (21-32); CREATININE 0.8 mg/dL (0.55-1.3); GLUCOSE,RANDOM 96 mg/dL (74-106); POTASSIUM 3.5 mmol/L (3.5-5.1); SGOT/AST 22 U/L (15-37); SGPT/ALT 28 U/L (13-61); SODIUM 140 mmol/L (136-145); TOT PROT 6.4 g/dl (6.4-8.2)
--- NOTE | 2019-01-04 14:22 | PDOC ---
Documentation entered by Lluvia Maldonado SCRIBE, acting as scribe for Rosalba Flores MD. Rosalba Flores MD: This documentation has been prepared by the Joel parrish Amanda, SCRIBE, under my direction and personally reviewed by me in its entirety. I confirm that the documentation accurately reflects all work, treatment, procedures, and medical decision making performed by me. Attending Attestation - Resident Resident Name: Too Roca - ED Attending Attestation I have performed the following: I have examined & evaluated the patient, The case was reviewed & discussed with the resident, I agree w/resident's findings & plan, Exceptions are as noted - HPI HPI: 01/04/19 13:15 The patient is a 58 year old male with a significant past medical history of HTN , HLD, DM, Lymphedema who presents to the ED for evaluation of increasing pain and redness to his right lower extremity wound. The patient denies fevers, chills, SOB, chest pain , nausea, vomiting, abdominal pain, or changes with urination or bowel movements. Allergies: Amoxicillin, Clavulanic acid - Physicial Exam PE: GENERAL: Awake, alert, and fully oriented, in no acute distress HEAD: No signs of trauma EYES: PERRLA, EOMI, sclera anicteric, conjunctiva clear ENT: Auricles normal inspection, hearing grossly normal, nares patent, oropharynx clear without exudates. Moist mucosa NECK: Normal ROM, supple, no lymphadenopathy, JVD, or masses LUNGS: Breath sounds equal, clear to auscultation bilaterally. No wheezes, and no crackles HEART: Regular rate and rhythm, normal S1 and S2, no murmurs, rubs or gallops ABDOMEN: Soft, nontender, normoactive bowel sounds. No guarding, no rebound. No masses EXTREMITIES: BLE with 4+ pitting edema, R lower leg with serous drainage. Upper extremities with normal range of motion, no edema, no clubbing, no cyanosis. No cords, erythema, or tenderness NEUROLOGICAL: Cranial nerves II through XII grossly intact. Normal speech. Motor and sensation intact SKIN: Warm, Dry, normal turgor, no rashes or lesions noted. - Medical Decision Making Pt referred for IV abx and admission by wound care clinic.
[2019-01-04 16:52] VITALS: BMI 58.7
--- NOTE | 2019-01-04 19:21 | PN ---
Progress Note (short form) - Note Progress Note: ID consult dictated imp/reccd patient well known to me 58 yo morbidly obese man with bilateral lymphedema, OSAS, recent cellulitis of his legs and severe drug rash to augmentin was in wound care today where he was noted to have erythema extending up this right leg and some erythema of the LLL- I saw him there no fevers taking clindamycin 300 bid at home without improvement I advised admission and he came to ED he had a recent severe drug allergy to augmentin will resume zyvox for cellulitis needs lotion for his skin - it is very dry Problem List - Problems (1) Cellulitis Code(s): L03.90 - CELLULITIS, UNSPECIFIED Qualifiers: Site of cellulitis: extremity Site of cellulitis of extremity: lower extremity Laterality: right Qualified Code(s): L03.115 - Cellulitis of right lower limb (2) Lymphedema Code(s): I89.0 - LYMPHEDEMA, NOT ELSEWHERE CLASSIFIED (3) Morbid obesity Code(s): E66.01 - MORBID (SEVERE) OBESITY DUE TO EXCESS CALORIES (4) Hx of antibiotic allergy Code(s): Z88.1 - ALLERGY STATUS TO OTHER ANTIBIOTIC AGENTS STATUS
[2019-01-04] MEDS ORDERED: ROSUVASTATIN CA 10 MG TABLET (FP) ONE (20:58)
[2019-01-04] MEDS: LINEZOLID 600 MG PREMIX BAG 600 MG in PREMIX 300 IVPB SCH (21:24)
[2019-01-04] MEDS: ROSUVASTATIN CA 20 MG TABLET (FP) PO SCH (21:25)
[2019-01-05 09:22] LABS: BASO % 0.8 % (0-2.0); HEMATOCRIT 40.5 % (35.4-49); MCH 26.8 pg (25.7-33.7); MCHC 32.2 g/dl (32.0-35.9); MEAN CELL VOLUME 83.1 fl (80-96); MEAN PLT VOLUME 9.2 fl (7.5-11.1); MONO % 5.8 % (3.8-10.2); NEUT % 67.4 % (42.8-82.8); PLATELET COUNT 133 K/MM3 (134-434); RBC 4.87 M/mm3 (4.00-5.60); WHITE BLOOD COUNT 10.2 K/mm3 (4.0-10.0)
[2019-01-05] MEDS: metFORMIN HCL 500 MG TABLET (FP) PO SCH (09:42)
[2019-01-05] MEDS: HYDROCHLOROTHIAZIDE 25 MG TABLET (FP) PO SCH (09:42)
--- NOTE | 2019-01-05 09:50 | HP ---
Admitting History and Physical - Admission Chief Complaint: preseted w lt leg rednees w erythema up to thigh regionx 4 days ago History Source: Patient Limitations to Obtaining History: No Limitations - Past Medical History Cardiovascular: Yes: HTN, Other (aortic anerysm 5 cm) Pulmonary: Yes: COPD, Sleep Apnea, Other (bob) Infectious Disease: Yes: Other (lt ;leg cellulitis) Musculoskeletal: Yes: Other (lymphodema) Endocrine: Yes: Diabetes Mellitus - Past Surgical History Past Surgical History: Yes: None - Smoking History Smoking history: Never smoked Have you smoked in the past 12 months: No - Alcohol/Substance Use Hx Alcohol Use: No History of Substance Use: reports: None - Social History ADL: Independent History of Recent Travel: No Home Medications - Allergies Allergies/Adverse Reactions: Allergies Allergy/AdvReac Type Severity Reaction Status Date / Time amoxicillin [From Augmentin] Allergy Intermediate Rash Verified 01/04/19 11:17 clavulanic acid Allergy Intermediate Rash Verified 01/04/19 11:17 [From Augmentin] - Home Medications Home Medications: Ambulatory Orders Metformin HCl [Glucophage] 500 mg PO DAILY 06/04/18 Rosuvastatin [Crestor -] 20 mg PO DAILY 06/04/18 Rivaroxaban [Xarelto] 20 mg PO DAILY 12/17/18 Clindamycin [Cleocin -] 300 mg PO BID 12/27/18 Hydrochlorothiazide [Hctz -] 50 mg PO DAILY 01/04/19 Family Disease History - Family Disease History Family History: Unremarkable Family Disease History: CA: Father (possible Colon CA) Review of Systems - Review of Systems Respiratory: reports: SOB on Exertion Musculoskeletal: reports: Other (lt leg red swelling) Integumentary: reports: Erythema Neurological: reports: No Symptoms Endocrine: reports: No Symptoms Hematology/Lymphatic: reports: No Symptoms Psychiatric: reports: No Symptoms Physical Examination Vital Signs: Vital Signs Temperature 97.3 F L 01/05/19 06:33 Pulse Rate 89 01/05/19 06:33 Respiratory Rate 01/05/19 06:33 Blood Pressure 111/72 01/05/19 06:33 O2 Sat by Pulse Oximetry (%) 96 01/04/19 21:00 Extremities: Yes: Other (rt leg red swelling) Edema: Yes Edema: LLE: 2+, RLE: 3+ Integumentary: Yes: WNL Wound/Incision: Yes: Dressing Dry and Intact Neurological: Yes: WNL ...Motor Strength: WNL Psychiatric: Yes: WNL Labs: CBC, BMP 01/05/19 08:30 Assessment/Plan wd care dann epps id cont tx as is vasc to f/u pt
[2019-01-05 09:56] LABS: ALBUMIN 2.8 g/dl (3.4-5.0); ALK PHOS 52 U/L (45-117); ANION GAP 7 MMOL/L (8-16); BILIRUBIN,TOTAL 0.5 mg/dL (0.2-1); BLOOD UREA NITROGEN 15 mg/dL (7-18); CHLORIDE 100 mmol/L (98-107); CO2 32 mmol/L (21-32); CREATININE 0.9 mg/dL (0.55-1.3); GLUCOSE,RANDOM 127 mg/dL (74-106); POTASSIUM 3.1 mmol/L (3.5-5.1); SGOT/AST 16 U/L (15-37); SGPT/ALT 27 U/L (13-61); SODIUM 138 mmol/L (136-145); TOT PROT 6.5 g/dl (6.4-8.2)
[2019-01-05] MEDS: LINEZOLID 600 MG PREMIX BAG 600 MG in PREMIX 300 IVPB SCH (10:15)
[2019-01-05 11:05] LABS: INR 1.28 (0.83-1.09); PROTHROMBIN TIME (PATIENT) 15.2 SEC (9.7-13.0)
[2019-01-05] MEDS ORDERED: POTASSIUM CHLORIDE ORAL LIQUID 20 MEQ/15 ML PO ONE (11:34)
[2019-01-05] MEDS: BUDESONIDE/FORMETEROL FUMARATE 160/4.5 mcg INHALER IH SCH ×2 (11:46→21:53)
[2019-01-05] MEDS: MINERAL OIL/PETROLAT/WATER TOPICAL CREAM 113 GM JAR TP PRN (11:46)
[2019-01-05 11:58] LABS: ACTIVATED PTT 38.8 SECONDS (25.2-36.5)
--- NOTE | 2019-01-05 15:13 | EKG ---
Test Reason : Blood Pressure : / mmHG Vent. Rate : 086 BPM Atrial Rate : 086 BPM P-R Int : 176 ms QRS Dur : 162 ms QT Int : 410 ms P-R-T Axes : 025 -17 076 degrees QTc Int : 490 ms POOR DATA QUALITY, INTERPRETATION MAY BE ADVERSELY AFFECTED SINUS RHYTHM WITH PREMATURE ATRIAL COMPLEXES LEFT BUNDLE BRANCH BLOCK ABNORMAL ECG WHEN COMPARED WITH ECG OF 17-DEC-2018 18:16, PREMATURE ATRIAL COMPLEXES ARE NOW PRESENT Confirmed by MICH SLOAN MD ([id number]) on 01/05/2019 3:13:18 PM Referred By: Confirmed By:MICH SLOAN MD
[2019-01-05] MEDS: RIVAROXABAN 20 MG TABLET PO SCH (17:30)
[2019-01-05] MEDS ORDERED: ROSUVASTATIN CA 10 MG TABLET (FP) ONE (21:51)
[2019-01-05] MEDS: ROSUVASTATIN CA 20 MG TABLET (FP) PO SCH (21:52)
[2019-01-05] MEDS: LINEZOLID 600 MG TABLET (RESTRICTED TO ID) PO SCH (21:53)
[2019-01-06] MEDS ORDERED: PT OWN MED DRAWER 7, Y5N ONE (06:53)
[2019-01-06 08:15] LABS: BASO % 0.8 % (0-2.0); EOS % 21.6 % (0-4.5); HEMATOCRIT 38.6 % (35.4-49); HEMOGLOBIN 12.7 GM/dL (11.7-16.9); LYMPH % 11.4 % (8-40); MCH 27.2 pg (25.7-33.7); MCHC 32.8 g/dl (32.0-35.9); MEAN CELL VOLUME 82.8 fl (80-96); MONO % 6.9 % (3.8-10.2); NEUT % 59.3 % (42.8-82.8); RBC 4.67 M/mm3 (4.00-5.60); RDW 17.9 % (11.9-15.9)
[2019-01-06 09:22] LABS: ALBUMIN 2.8 g/dl (3.4-5.0); ALK PHOS 51 U/L (45-117); ANION GAP 9 MMOL/L (8-16); BILIRUBIN,TOTAL 0.4 mg/dL (0.2-1); BLOOD UREA NITROGEN 15 mg/dL (7-18); CALCIUM 9.2 mg/dL (8.5-10.1); CHLORIDE 99 mmol/L (98-107); CO2 30 mmol/L (21-32); CREATININE 0.9 mg/dL (0.55-1.3); GLUCOSE,RANDOM 106 mg/dL (74-106); POTASSIUM 3.3 mmol/L (3.5-5.1); SGOT/AST 24 U/L (15-37); SGPT/ALT 28 U/L (13-61); SODIUM 137 mmol/L (136-145); TOT PROT 6.6 g/dl (6.4-8.2)
[2019-01-06] MEDS: metFORMIN HCL 500 MG TABLET (FP) PO SCH (09:42)
[2019-01-06] MEDS: HYDROCHLOROTHIAZIDE 25 MG TABLET (FP) PO SCH (09:42)
[2019-01-06] MEDS: MINERAL OIL/PETROLAT/WATER TOPICAL CREAM 113 GM JAR TP PRN (09:42)
[2019-01-06] MEDS: BUDESONIDE/FORMETEROL FUMARATE 160/4.5 mcg INHALER IH SCH ×2 (09:43→21:01)
[2019-01-06] MEDS: LINEZOLID 600 MG TABLET (RESTRICTED TO ID) PO SCH (09:43)
[2019-01-06 09:47] LABS: ANISOCYTOSIS 0; MACROCYTOSIS 0; PLATELET ESTIMATE DECREASED
[2019-01-06] MEDS ORDERED: POTASSIUM CHLORIDE ORAL LIQUID 20 MEQ/15 ML PO ONE (11:33)
--- NOTE | 2019-01-06 11:36 | PN ---
Progress Note, Physician Chief Complaint: rt leg slowly resolving vss - Current Medication List Current Medications: Active Medications Budesonide/Formoterol Fumarate (Symbicort 160/4.5mcg -) 2 puff IH BID [facility] Last Admin: 01/06/19 09:43 Dose: 2 puff Hydrochlorothiazide (Hctz -) 25 mg PO DAILY [facility] Last Admin: 01/06/19 09:42 Dose: 25 mg Linezolid (Zyvox (Restricted To Id) -) 600 mg PO BID [facility] Last Admin: 01/06/19 09:43 Dose: 600 mg Metformin HCl (Glucophage -) 500 mg PO DAILY [facility] Last Admin: 01/06/19 09:42 Dose: 500 mg Multi-Ingredient Lotion (Eucerin (Small Jar) -) 1 applic TP DAILY PRN PRN Reason: DRY SKIN Last Admin: 01/06/19 09:42 Dose: 1 applic Rivaroxaban (Xarelto -) 20 mg PO DAILY@1800 [facility] Last Admin: 01/05/19 17:30 Dose: 20 mg Rosuvastatin Calcium (Crestor -) 20 mg PO [facility] Last Admin: 01/05/19 21:52 Dose: 20 mg - Objective Vital Signs: Vital Signs Temperature 98.7 F 01/06/19 05:58 Pulse Rate 83 01/06/19 05:58 Respiratory Rate 21 H 01/06/19 05:58 Blood Pressure 130/91 01/06/19 05:58 O2 Sat by Pulse Oximetry (%) 94 L 01/06/19 08:51 Constitutional: Yes: Well Nourished Eyes: Yes: WNL HENT: Yes: WNL Neck: Yes: WNL Cardiovascular: Yes: WNL Respiratory: Yes: SOB on Exertion Gastrointestinal: Yes: WNL ...Rectal Exam: Yes: Deferred Genitourinary: Yes: WNL Breast(s): Yes: WNL Musculoskeletal: Yes: WNL Extremities: Yes: Other (rt leg ereythematuos) Edema: Yes Edema: LLE: 2+, RLE: 3+ Peripheral Pulses WNL: Yes Integumentary: Yes: WNL Wound/Incision: Yes: Clean/Dry, Dressing Dry and Intact Neurological: Yes: WNL ...Motor Strength: WNL Psychiatric: Yes: WNL Labs: CBC, BMP 01/06/19 06:30 01/06/19 06:30 INR, PTT INR 1.28 (0.83-1.09) H 01/05/19 08:30 Assessment/Plan i started iv myself iv tx please id vasc f/u need to have barieteric sx to lose wt dr magdaleno
--- NOTE | 2019-01-06 12:52 | PN ---
Progress Note (short form) - Note Progress Note: erythema of the right leg is better on the zyvox rash has increased Vital Signs Period Temp Pulse Resp BP Sys/Sanz Pulse Ox Last 24 Hr 97.9 F-98.7 F 83-90 20-21 130-135/68-91 94-95 cor-rrr lungs clear abd soft,nt ext diffuse maculopapular rash, +itching bilateral lymphedema with decreased erythema of the RLE- thigh is improving CBC, BMP 01/06/19 06:30 01/06/19 06:30 21% eosinophils Microbiology 01/04/19 14:04 Cellulitis Gram Stain - Final 01/04/19 14:04 Cellulitis Wound Culture - Preliminary Enterobacter Cloacae Presumptive Mrsa (Pbp2a Pos) Pending Organism Pending Organism#2 01/04/19 13:46 Blood - Peripheral Venous Blood Culture - Preliminary NO GROWTH OBTAINED AFTER 24 HOURS, INCUBATION TO CONTINUE FOR 4 DAYS. 01/04/19 13:20 Blood - Peripheral Venous Blood Culture - Preliminary NO GROWTH OBTAINED AFTER 24 HOURS, INCUBATION TO CONTINUE FOR 4 DAYS. a/p recurrent cellulitis- switch to tygacil eosinophilia and worsening rash- ?cefepime he got in the ED would resume short course of steroids mrsa contact isolation call in to dr ansari to discuss Problem List - Problems (1) Cellulitis Code(s): L03.90 - CELLULITIS, UNSPECIFIED Qualifiers: Site of cellulitis: extremity Site of cellulitis of extremity: lower extremity Laterality: right Qualified Code(s): L03.115 - Cellulitis of right lower limb (2) Lymphedema Code(s): I89.0 - LYMPHEDEMA, NOT ELSEWHERE CLASSIFIED (3) Morbid obesity Code(s): E66.01 - MORBID (SEVERE) OBESITY DUE TO EXCESS CALORIES (4) Hx of antibiotic allergy Code(s): Z88.1 - ALLERGY STATUS TO OTHER ANTIBIOTIC AGENTS STATUS
[2019-01-06] MEDS ORDERED: TIGECYCLINE 100 MG in DEXTROSE 5%-WATER - 100 ML IVPB ONE (13:00)
[2019-01-06] MEDS: RIVAROXABAN 20 MG TABLET PO SCH (17:02)
[2019-01-06] MEDS ORDERED: ROSUVASTATIN CA 10 MG TABLET (FP) ONE (20:41)
[2019-01-06] MEDS: ROSUVASTATIN CA 20 MG TABLET (FP) PO SCH (21:00)
[2019-01-06] MEDS: TIGECYCLINE 50 MG in DEXTROSE 5%-WATER - 100 ML IVPB SCH (21:00)
[2019-01-07 06:34] LABS: BASO % 1.1 % (0-2.0); EOS % 23.1 % (0-4.5); HEMATOCRIT 37.8 % (35.4-49); HEMOGLOBIN 12.3 GM/dL (11.7-16.9); LYMPH % 10.8 % (8-40); MCH 26.9 pg (25.7-33.7); MCHC 32.4 g/dl (32.0-35.9); MEAN PLT VOLUME 9.4 fl (7.5-11.1); MONO % 8.1 % (3.8-10.2); NEUT % 56.9 % (42.8-82.8); RBC 4.55 M/mm3 (4.00-5.60); RDW 17.8 % (11.9-15.9); WHITE BLOOD COUNT 12.2 K/mm3 (4.0-10.0)
[2019-01-07 07:18] LABS: ANION GAP 6 MMOL/L (8-16); BLOOD UREA NITROGEN 22 mg/dL (7-18); CALCIUM 8.9 mg/dL (8.5-10.1); CHLORIDE 102 mmol/L (98-107); CO2 29 mmol/L (21-32); CREATININE 0.9 mg/dL (0.55-1.3); GLUCOSE,RANDOM 107 mg/dL (74-106); POTASSIUM 3.8 mmol/L (3.5-5.1); SODIUM 138 mmol/L (136-145)
[2019-01-07] MEDS: TIGECYCLINE 50 MG in DEXTROSE 5%-WATER - 100 ML IVPB SCH ×2 (09:50→23:00)
[2019-01-07] MEDS: metFORMIN HCL 500 MG TABLET (FP) PO SCH (09:52)
[2019-01-07] MEDS: BUDESONIDE/FORMETEROL FUMARATE 160/4.5 mcg INHALER IH SCH ×2 (09:52→23:00)
[2019-01-07] MEDS: HYDROCHLOROTHIAZIDE 25 MG TABLET (FP) PO SCH (09:52)
--- NOTE | 2019-01-07 10:07 | PN ---
Progress Note (short form) - Note Progress Note: still feels itchy Vital Signs Period Temp Pulse Resp BP Sys/Sanz Pulse Ox Last 24 Hr 98.4 F-998.6 F 76-84 20-20 125-135/64-70 cor-rrr lungs clear abd soft,nt ext bilateral lymphedema with wounds lower legs +diffuse maculopapular rash CBC, BMP 01/07/19 06:00 01/07/19 06:00 21% eosinophils Microbiology 01/04/19 13:46 Blood - Peripheral Venous Blood Culture - Preliminary NO GROWTH OBTAINED AFTER 72 HOURS, INCUBATION TO CONTINUE FOR 2 DAYS. 01/04/19 13:20 Blood - Peripheral Venous Blood Culture - Preliminary NO GROWTH OBTAINED AFTER 72 HOURS, INCUBATION TO CONTINUE FOR 2 DAYS. 01/04/19 14:04 Cellulitis Gram Stain - Final 01/04/19 14:04 Cellulitis Wound Culture - Preliminary Enterobacter Cloacae Mr S Aureus Group D Strep Or Entero Coccus Beta Hemolytic Strep a/p recurrent cellulitis- tygacil day #2 eosinophilia and worsening rash- ?cefepime he got in the ED started steroids mrsa contact isolation d/w dr ansari Problem List - Problems (1) Cellulitis Code(s): L03.90 - CELLULITIS, UNSPECIFIED Qualifiers: Site of cellulitis: extremity Site of cellulitis of extremity: lower extremity Laterality: right Qualified Code(s): L03.115 - Cellulitis of right lower limb (2) Lymphedema Code(s): I89.0 - LYMPHEDEMA, NOT ELSEWHERE CLASSIFIED (3) Morbid obesity Code(s): E66.01 - MORBID (SEVERE) OBESITY DUE TO EXCESS CALORIES (4) Hx of antibiotic allergy Code(s): Z88.1 - ALLERGY STATUS TO OTHER ANTIBIOTIC AGENTS STATUS
[2019-01-07 11:47] LABS: ANISOCYTOSIS 0; MACROCYTOSIS 0; PLATELET ESTIMATE DECREASED
[2019-01-07] MEDS: methylPREDNISolone NA SUCC 40 MG/1 ML VIAL IVPUSH SCH ×2 (12:10→17:11)
--- NOTE | 2019-01-07 16:28 | CONSULT ---
- Consultation REQUESTING PROVIDER: CONSULT REQUEST: We have been asked to surgically evaluate this patient for (LE wounds/cellulitis). PCP:Lalo Lindsey HISTORY OF PRESENT ILLNESS: 58 y/o M w/ PMHx morbid obesity, lymphadema, HLD, DM , depression, HTN, and h/o DVT (axillary/femoral) now admitted for R LE cellulitis. Pt w/ multiple recent admissions (12/04-12/10) for fever/lle cellulitis and (12/17-12/22) for persistent cellulitis and drug rash (Augmentin). Pt was d/c'ed on Clindamycin last admission, reports he did not complete course as cellulitis was not improving and began to spread to his RLE. Denies fevers/ chills at home, endorses weeping from le wounds. Denies SOB, chest pain, nausea , diarrhea, vomiting. PMHx: as above PSHx: denies Home Medications Medication Instructions Recorded Metformin HCl [Glucophage] 500 mg PO DAILY 06/04/18 Rosuvastatin [Crestor -] 20 mg PO DAILY 06/04/18 Rivaroxaban [Xarelto] 20 mg PO DAILY 12/17/18 Clindamycin [Cleocin -] 300 mg PO BID 12/27/18 Hydrochlorothiazide [Hctz -] 50 mg PO DAILY 01/04/19 Allergies Allergy/AdvReac Type Severity Reaction Status Date / Time amoxicillin [From Augmentin] Allergy Intermediate Rash Verified 01/04/19 11:17 clavulanic acid Allergy Intermediate Rash Verified 01/04/19 11:17 [From Augmentin] REVIEW OF SYSTEMS: CONSTITUTIONAL: Absent: fever, chills CARDIOVASCULAR: Absent: chest pain, syncope RESPIRATORY: Absent: cough, shortness of breath GASTROINTESTINAL: Absent: abdominal pain PHYSICAL EXAM: GENERAL: Awake, alert, and fully oriented, in no acute distress. HEAD: Normal with no signs of trauma. LUNGS: Unlabored on RA, No accessory muscle use. LOWER EXTREMITIES: 2+ pulses, warm, well-perfused. No calf tenderness. No peripheral edema. NEUROLOGICAL: Normal speech, gait not observed. PSYCH: Cooperative. Good eye contact. Appropriate mood and affect. SKIN: Warm, dry, normal turgor, no rashes or lesions noted. LOWER EXTREMITIES: B/L le's with 2+ pitting edema to knee. Lateral aspect of both legs with superficial ulcerations approx 5x5cm. R lateral area with 2 small superficial blisters with serous fluid, rle wounds with surrounding erythema. LLE with no erythema, moderate amount of scaling dry skin from toes to mid calf. No palpable fluid collections, no ttp. Moderate serous oozing from b/l le's. Neuro: 5/5 b/l dorsi/plantar flexion, silt b/l. Vasc: Unable to appreciate pulses due to edema, feet warm, well perfused. Vital Signs Temperature 98.4 F 01/07/19 06:00 Pulse Rate 84 01/07/19 06:00 Respiratory Rate 20 01/07/19 06:00 Blood Pressure 125/64 01/07/19 06:00 O2 Sat by Pulse Oximetry (%) 94 L 01/07/19 09:00 Lab Results WBC 12.2 K/mm3 (4.0-10.0) H 01/07/19 06:00 RBC 4.55 M/mm3 (4.00-5.60) 01/07/19 06:00 Hgb 12.3 GM/dL (11.7-16.9) 01/07/19 06:00 Hct 37.8 % (35.4-49) 01/07/19 06:00 MCV 83.0 fl (80-96) 01/07/19 06:00 MCHC 32.4 g/dl (32.0-35.9) 01/07/19 06:00 RDW 17.8 % (11.9-15.9) H 01/07/19 06:00 Plt Count K/MM3 (134-434) 01/07/19 06:00 Sodium 138 mmol/L (136-145) 01/07/19 06:00 Potassium 3.8 mmol/L (3.5-5.1) 01/07/19 06:00 Chloride 102 mmol/L (98-107) 01/07/19 06:00 Carbon Dioxide 29 mmol/L (21-32) 01/07/19 06:00 Anion Gap 6 MMOL/L (8-16) L 01/07/19 06:00 BUN 22 mg/dL (7-18) H 01/07/19 06:00 Creatinine 0.9 mg/dL (0.55-1.3) 01/07/19 06:00 Random Glucose 107 mg/dL (74-106) H 01/07/19 06:00 Calcium 8.9 mg/dL (8.5-10.1) 01/07/19 06:00 INR 1.28 (0.83-1.09) H 01/05/19 08:30 A/P: 58 y/o M w/ PMHx lymphadema, HLD, DM, depression, HTN, and h/o DVT ( axillary/femoral) now a/w fever and LLE cellulitis/skin weeping. Afebrile, wbc trednign up to 12k. RLE with cellulitis, b/l les with superficial wounds Copious dry skin cleaned from LLE -Continue Iv abx per ID, on Tygacil currently -Strict LE elevation while at rest -Calcium alginate to b/l le wounds, cover with 4x4's kerlix/zuleika, wash LLE with NS and gauze to remove as much debris as possible, apply Hydrocerin cream above d/w attending Dr Magdaleno
--- NOTE | 2019-01-07 16:33 | CONSULT ---
Consult - text type - Consultation Consultation Note: 01/07/2019 Asked to see this 58 y.o. gentleman who presents with cellulitis of RLE Pt seen by ID and on antibiotics Pt with hx. of morbid obesity, DM,HTN, HLD I have seen pt in past and discussed weight-loss surgery. Pt was not interested at that time, but with increasing frequency and severity of lower extremity cellulitis pt is interested now. Pt will see me in the office after discharge and well cellulitis is healed and begin W/U for weight-loss surgery. P- Follow patient in office after discharge.
[2019-01-07] MEDS: RIVAROXABAN 20 MG TABLET PO SCH (17:11)
[2019-01-07] MEDS ORDERED: PT OWN MED DRAWER 7, Y5N ONE (20:49)
[2019-01-07] MEDS: ROSUVASTATIN CA 20 MG TABLET (FP) PO SCH (23:00)
[2019-01-08] MEDS: methylPREDNISolone NA SUCC 40 MG/1 ML VIAL IVPUSH SCH ×2 (02:49→10:17)
[2019-01-08 07:17] LABS: BASO % 0.3 % (0-2.0); HEMATOCRIT 39.4 % (35.4-49); HEMOGLOBIN 12.6 GM/dL (11.7-16.9); LYMPH % 7.9 % (8-40); MCH 26.4 pg (25.7-33.7); MCHC 32.1 g/dl (32.0-35.9); MEAN CELL VOLUME 82.3 fl (80-96); MEAN PLT VOLUME 9.1 fl (7.5-11.1); MONO % 2.4 % (3.8-10.2); NEUT % 89.4 % (42.8-82.8); PLATELET COUNT 184 K/MM3 (134-434); RBC 4.78 M/mm3 (4.00-5.60); RDW 17.7 % (11.9-15.9); WHITE BLOOD COUNT 11.6 K/mm3 (4.0-10.0)
[2019-01-08 07:25] LABS: ANION GAP 9 MMOL/L (8-16); BLOOD UREA NITROGEN 21 mg/dL (7-18); CALCIUM 9.1 mg/dL (8.5-10.1); CHLORIDE 100 mmol/L (98-107); CO2 27 mmol/L (21-32); CREATININE 0.8 mg/dL (0.55-1.3); GLUCOSE,RANDOM 153 mg/dL (74-106); SODIUM 137 mmol/L (136-145)
[2019-01-08] MEDS ORDERED: PT OWN MED DRAWER 7, Y5N ONE ×2 (10:02→21:19)
[2019-01-08] MEDS: metFORMIN HCL 500 MG TABLET (FP) PO SCH (10:17)
[2019-01-08] MEDS: HYDROCHLOROTHIAZIDE 25 MG TABLET (FP) PO SCH (10:17)
[2019-01-08] MEDS: TIGECYCLINE 50 MG in DEXTROSE 5%-WATER - 100 ML IVPB SCH ×2 (10:18→21:25)
[2019-01-08] MEDS: BUDESONIDE/FORMETEROL FUMARATE 160/4.5 mcg INHALER IH SCH ×2 (10:25→21:26)
--- NOTE | 2019-01-08 11:17 | PN ---
Progress Note, Physician History of Present Illness: pt rt leg significantly improved vss wbc ok even on steroids aasking when to go home - Current Medication List Current Medications: Active Medications Budesonide/Formoterol Fumarate (Symbicort 160/4.5mcg -) 2 puff IH BID [facility] Last Admin: 01/08/19 10:25 Dose: 2 puff Hydrochlorothiazide (Hctz -) 25 mg PO DAILY [facility] Last Admin: 01/08/19 10:17 Dose: 25 mg Tigecycline 50 mg/ Dextrose 100 mls @ 100 mls/hr IVPB BID [facility]; Protocol Last Admin: 01/08/19 10:18 Dose: 100 mls/hr Metformin HCl (Glucophage -) 500 mg PO DAILY [facility] Last Admin: 01/08/19 10:17 Dose: 500 mg Methylprednisolone Sodium Succinate (Solu-Medrol -) 40 mg IVPUSH Q8H-IV [facility] Last Admin: 01/08/19 10:17 Dose: 40 mg Multi-Ingredient Lotion (Eucerin (Small Jar) -) 1 applic TP DAILY PRN PRN Reason: DRY SKIN Last Admin: 01/06/19 09:42 Dose: 1 applic Rivaroxaban (Xarelto -) 20 mg PO DAILY@1800 [facility] Last Admin: 01/07/19 17:11 Dose: 20 mg Rosuvastatin Calcium (Crestor -) 20 mg PO HS [facility] Last Admin: 01/07/19 23:00 Dose: 20 mg - Objective Vital Signs: Vital Signs Temperature 98.4 F 01/08/19 06:00 Pulse Rate 90 01/08/19 06:00 Respiratory Rate 20 01/08/19 06:00 Blood Pressure 109/55 L 01/08/19 06:00 O2 Sat by Pulse Oximetry (%) 94 L 01/07/19 21:00 Constitutional: Yes: Other (morbid obesity) Eyes: Yes: WNL HENT: Yes: WNL Neck: Yes: WNL Cardiovascular: Yes: WNL Respiratory: Yes: SOB on Exertion, Other (uses cpap?) Gastrointestinal: Yes: WNL, Tenderness, Rebound Genitourinary: Yes: WNL Breast(s): Yes: WNL Musculoskeletal: Yes: WNL Extremities: Yes: Erythema (rt leg better) Edema: Yes Edema: LLE: 2+, RLE: 3+ Peripheral Pulses WNL: Yes Integumentary: Yes: WNL Wound/Incision: Yes: Clean/Dry Neurological: Yes: WNL ...Motor Strength: WNL Psychiatric: Yes: WNL Labs: CBC, BMP 01/08/19 06:00 01/08/19 06:00 INR, PTT INR 1.28 (0.83-1.09) H 01/05/19 08:30 Assessment/Plan reduce steroids prepare for d/c ? in am id for choice po axtb cont tx as is barieteric sx as out pt cpap out pt colonocopy ouy ptb at [facility] in hosp
--- NOTE | 2019-01-08 17:05 | PN ---
Progress Note (short form) - Note Progress Note: rash and itching much improved on steroids now on tygacil Vital Signs Period Temp Pulse Resp BP Sys/Sanz Pulse Ox Last 24 Hr 9.4 F-98.4 F 78-90 19-22 98-130/41-71 94-94 cor-rrr lungs clear abd soft,nt ext dry skin ulcers are dry, erythema much improved rash is fading CBC, BMP 01/08/19 06:00 01/08/19 06:00 Microbiology 01/04/19 14:04 Cellulitis Gram Stain - Final 01/04/19 14:04 Cellulitis Wound Culture - Final Enterobacter Cloacae Mr S Aureus Enterococcus Faecalis Strep Agalactiae Group B 01/04/19 13:46 Blood - Peripheral Venous Blood Culture - Preliminary NO GROWTH OBTAINED AFTER 96 HOURS, INCUBATION TO CONTINUE FOR 1 DAYS. 01/04/19 13:20 Blood - Peripheral Venous Blood Culture - Preliminary NO GROWTH OBTAINED AFTER 96 HOURS, INCUBATION TO CONTINUE FOR 1 DAYS. a/p recurrent cellulitis- tygacil day #3 eosinophilia and worsening rash- ?cefepime he got in the ED started steroids mrsa contact isolation plan zyvox po for one week when ready for discharge Problem List - Problems (1) Cellulitis Code(s): L03.90 - CELLULITIS, UNSPECIFIED Qualifiers: Site of cellulitis: extremity Site of cellulitis of extremity: lower extremity Laterality: right Qualified Code(s): L03.115 - Cellulitis of right lower limb (2) Lymphedema Code(s): I89.0 - LYMPHEDEMA, NOT ELSEWHERE CLASSIFIED (3) Morbid obesity Code(s): E66.01 - MORBID (SEVERE) OBESITY DUE TO EXCESS CALORIES (4) Hx of antibiotic allergy Code(s): Z88.1 - ALLERGY STATUS TO OTHER ANTIBIOTIC AGENTS STATUS
[2019-01-08] MEDS: RIVAROXABAN 20 MG TABLET PO SCH (18:22)
[2019-01-08] MEDS: ROSUVASTATIN CA 20 MG TABLET (FP) PO SCH (21:25)
[2019-01-08] MEDS: methylPREDNISolone NA SUCC 40 MG/1 ML VIAL IVPB SCH (21:25)
[2019-01-09 08:14] LABS: BASO % 0.4 % (0-2.0); EOS % 0.1 % (0-4.5); HEMATOCRIT 39.1 % (35.4-49); HEMOGLOBIN 12.6 GM/dL (11.7-16.9); LYMPH % 9.4 % (8-40); MCH 26.3 pg (25.7-33.7); MCHC 32.4 g/dl (32.0-35.9); MEAN CELL VOLUME 81.2 fl (80-96); MEAN PLT VOLUME 8.8 fl (7.5-11.1); MONO % 7.8 % (3.8-10.2); NEUT % 82.3 % (42.8-82.8); PLATELET COUNT 244 K/MM3 (134-434); RBC 4.81 M/mm3 (4.00-5.60); RDW 17.6 % (11.9-15.9); WHITE BLOOD COUNT 12.2 K/mm3 (4.0-10.0)
--- NOTE | 2019-01-09 10:35 | DS ---
Physical Examination Vital Signs: Vital Signs Temperature 98.0 F 01/09/19 05:50 Pulse Rate 79 01/09/19 05:50 Respiratory Rate 20 01/09/19 05:50 Blood Pressure 143/78 01/09/19 05:50 O2 Sat by Pulse Oximetry (%) 94 L 01/08/19 21:00 Constitutional: Yes: Well Nourished, Obese HENT: Yes: WNL Neck: Yes: WNL Cardiovascular: Yes: WNL Respiratory: Yes: WNL Gastrointestinal: Yes: WNL ...Rectal Exam: Yes: Deferred Renal/: Yes: WNL Breast(s): Yes: WNL Musculoskeletal: Yes: WNL Extremities: Yes: Erythema Edema: Yes Edema: LLE: 2+, RLE: 3+ Peripheral Pulses WNL: Yes Integumentary: Yes: WNL Wound/Incision: Yes: Clean/Dry Neurological: Yes: WNL ...Motor Strength: WNL Psychiatric: Yes: WNL Labs: CBC, BMP 01/09/19 07:40 01/08/19 06:00 Discharge Summary Reason For Visit: CELLULITIS Current Active Problems Cellulitis (Acute) Hx of antibiotic allergy (Acute) Condition: Stable - Instructions Diet, Activity, Other Instructions: pic up zyvox in our pharmacy in hosp other meds at [facility] if needed appt w [place] monday 1200 noon Disposition: HOME - Home Medications Comprehensive Discharge Medication List: Ambulatory Orders Metformin HCl [Glucophage] 500 mg PO DAILY 06/04/18 Rosuvastatin [Crestor -] 20 mg PO DAILY 06/04/18 Rivaroxaban [Xarelto] 20 mg PO DAILY 12/17/18 Clindamycin [Cleocin -] 300 mg PO BID 12/27/18 Hydrochlorothiazide [Hctz -] 50 mg PO DAILY 01/04/19 Linezolid [Zyvox] 600 mg PO BID #14 tablet 01/08/19
[2019-01-09] MEDS: TIGECYCLINE 50 MG in DEXTROSE 5%-WATER - 100 ML IVPB SCH (10:36)
[2019-01-09] MEDS: methylPREDNISolone NA SUCC 40 MG/1 ML VIAL IVPB SCH (10:36)
[2019-01-09] MEDS: HYDROCHLOROTHIAZIDE 25 MG TABLET (FP) PO SCH (10:40)
[2019-01-09] MEDS: metFORMIN HCL 500 MG TABLET (FP) PO SCH (10:40)
[2019-01-09] MEDS: BUDESONIDE/FORMETEROL FUMARATE 160/4.5 mcg INHALER IH SCH (10:42)
[2019-01-09 12:45] VITALS: BP 131/84; PULSE 78; TEMP 98
== END 2019-01-09 12:11 | disposition home or self-care (01) | DRG 603 ==
LOC: JER 11:07 → JERBED 14:37 → J6S 16:06
PROVIDERS: ADMIT Family Medicine; ATTEND Family Medicine
DX: L03.115 Cellulitis of right lower limb (principal); Z68.43 Body mass index [BMI] 50.0-59.9, adult; G47.33 Obstructive sleep apnea (adult) (pediatric); E66.01 Morbid (severe) obesity due to excess calories; I89.0 Lymphedema, not elsewhere classified; J44.9 Chronic obstructive pulmonary disease, unspecified; E11.9 Type 2 diabetes mellitus without complications; I71.9 Aortic aneurysm of unspecified site, without rupture; I10 Essential (primary) hypertension; Z88.1 Allergy status to other antibiotic agents
CPT/HCPCS: 36415; 71045-TC-FY; 73590-TC-RT-FY; 80048; 80053; 82962; 83605; 85025; 85610; 85730; 87040; 87070; 87186; 87205; 93005; 93010; 99283-25; G0463-25; J3243

== ENCOUNTER 2019-02-22 13:52 | Emergency (ER) | payer OTHER | END 2019-02-22 15:52 | disposition home or self-care (01) | LOC: JER 13:52 ==

== ENCOUNTER 2021-10-23 10:15 | Inpatient (IN) | payer BC ==
[2021-10-23] MEDS ORDERED: LINEZOLID 600 MG PREMIX BAG 600 MG in PREMIX 300 IVPB ONE (11:57)
[2021-10-23] MEDS ORDERED: MEROPENEM 1 GM in DEXTROSE 5%-WATER 100 ML IVPB ONE (12:01)
[2021-10-23] MEDS ORDERED: MEROPENEM 1 GM VIAL (RESTRICTED TO ID) IVPB ONE (12:51)
[2021-10-23 13:23] LABS: BASO % 0.8 % (0-2.0); HEMATOCRIT 42.2 % (35.4-49); HEMOGLOBIN 13.7 GM/dL (11.7-16.9); LYMPH % 23.5 % (8-40); MCH 27.7 pg (25.7-33.7); MCHC 32.5 g/dl (32.0-35.9); MEAN CELL VOLUME 85.2 fl (80-96); MEAN PLT VOLUME 9.1 fl (7.5-11.1); MONO % 9.8 % (3.8-10.2); NEUT % 62.9 % (42.8-82.8); PLATELET COUNT 271 10^3/uL (134-434); RBC 4.96 M/mm3 (4.00-5.60); RDW 15.5 % (11.9-15.9); WHITE BLOOD COUNT 9.2 K/mm3 (4.0-10.0)
[2021-10-23 13:30] LABS: INR 1.77 (0.83-1.09); PROTHROMBIN TIME (PATIENT) 20.5 SEC (9.7-13.0)
[2021-10-23 13:32] LABS: ACTIVATED PTT 46.5 SECONDS (25.2-36.5)
[2021-10-23 13:46] LABS: CALCIUM 9.8 mg/dL (8.5-10.1)
[2021-10-23 13:47] LABS: ALBUMIN 3.4 g/dl (3.4-5.0); BLOOD UREA NITROGEN 20.9 mg/dL (7-18)
[2021-10-23 13:51] LABS: TOT PROT 6.7 g/dl (6.4-8.2)
[2021-10-23 13:52] LABS: BILIRUBIN,TOTAL 0.3 mg/dL (0.2-1)
[2021-10-23] MEDS ORDERED: ACETAMINOPHEN 325 MG TABLET (FP) PO PRN (18:11)
[2021-10-23] MEDS ORDERED: ONDANSETRON 4 MG/2 ML VIAL IVPUSH PRN (18:11)
[2021-10-23] MEDS: ROSUVASTATIN CA 20 MG TABLET PO SCH (22:35)
[2021-10-23 23:35] VITALS: BMI 48.9
[2021-10-24 08:24] LABS: HEMATOCRIT 42.8 % (35.4-49); MCHC 32.6 g/dl (32.0-35.9); MEAN PLT VOLUME 9.5 fl (7.5-11.1); PLATELET COUNT 217 10^3/uL (134-434); RBC 4.98 M/mm3 (4.00-5.60); RDW 15.5 % (11.9-15.9); WHITE BLOOD COUNT 7.8 K/mm3 (4.0-10.0)
[2021-10-24 08:39] LABS: CALCIUM 9.3 mg/dL (8.5-10.1)
[2021-10-24 08:40] LABS: ALBUMIN 3.4 g/dl (3.4-5.0); BLOOD UREA NITROGEN 17.1 mg/dL (7-18)
[2021-10-24 08:43] LABS: CREATININE 1.1 mg/dL (0.55-1.3)
[2021-10-24 08:48] LABS: TOT PROT 6.7 g/dl (6.4-8.2)
[2021-10-24] MEDS: LISINOPRIL 5 MG TABLET PO SCH (10:03)
[2021-10-24] MEDS: LINEZOLID 600 MG PREMIX BAG 600 MG/300 ML BAG IVPB SCH (14:57)
[2021-10-24] MEDS: RIVAROXABAN 20 MG TABLET PO SCH (17:01)
[2021-10-24] MEDS: INSULIN SLIDING SCALE (NOVOLOG) 1 VIAL SQ SCH ×2 (17:02→21:19)
[2021-10-24] MEDS: ROSUVASTATIN CA 20 MG TABLET PO SCH (21:19)
[2021-10-25] MEDS: LINEZOLID 600 MG PREMIX BAG 600 MG/300 ML BAG IVPB SCH ×2 (01:59→14:37)
[2021-10-25] MEDS: INSULIN SLIDING SCALE (NOVOLOG) 1 VIAL SQ SCH ×4 (06:15→21:47)
[2021-10-25 08:05] LABS: HEMATOCRIT 39.2 % (35.4-49); HEMOGLOBIN 13.1 GM/dL (11.7-16.9); MCH 28.4 pg (25.7-33.7); MCHC 33.4 g/dl (32.0-35.9); MEAN PLT VOLUME 8.6 fl (7.5-11.1); PLATELET COUNT 217 10^3/uL (134-434); RBC 4.61 M/mm3 (4.00-5.60); RDW 15.1 % (11.9-15.9); WHITE BLOOD COUNT 7.5 K/mm3 (4.0-10.0)
[2021-10-25 08:21] LABS: BLOOD UREA NITROGEN 14.6 mg/dL (7-18); CALCIUM 9.6 mg/dL (8.5-10.1)
[2021-10-25] MEDS: LISINOPRIL 5 MG TABLET PO SCH (10:30)
[2021-10-25] MEDS: RIVAROXABAN 20 MG TABLET PO SCH (18:26)
[2021-10-25] MEDS: ROSUVASTATIN CA 20 MG TABLET PO SCH (21:46)
[2021-10-26] MEDS: LINEZOLID 600 MG PREMIX BAG 600 MG/300 ML BAG IVPB SCH ×2 (03:03→14:24)
[2021-10-26] MEDS: INSULIN SLIDING SCALE (NOVOLOG) 1 VIAL SQ SCH ×4 (06:07→22:12)
[2021-10-26 08:00] LABS: BASO % 0.9 % (0-2.0); EOS % 4.8 % (0-4.5); HEMATOCRIT 41.2 % (35.4-49); HEMOGLOBIN 13.4 GM/dL (11.7-16.9); LYMPH % 27.3 % (8-40); MCH 27.8 pg (25.7-33.7); MCHC 32.4 g/dl (32.0-35.9); MEAN PLT VOLUME 9.2 fl (7.5-11.1); MONO % 10.8 % (3.8-10.2); NEUT % 56.2 % (42.8-82.8); PLATELET COUNT 224 10^3/uL (134-434); RDW 15.5 % (11.9-15.9); WHITE BLOOD COUNT 7.8 K/mm3 (4.0-10.0)
[2021-10-26 08:10] LABS: ALBUMIN 3.3 g/dl (3.4-5.0); BLOOD UREA NITROGEN 14.4 mg/dL (7-18); CALCIUM 9.2 mg/dL (8.5-10.1); MAGNESIUM 2.6 mg/dL (1.8-2.4)
[2021-10-26 08:14] LABS: PHOSPHOROUS 3.7 mg/dL (2.5-4.9)
[2021-10-26 08:15] LABS: BILIRUBIN,TOTAL 0.4 mg/dL (0.2-1); TOT PROT 6.3 g/dl (6.4-8.2)
[2021-10-26] MEDS: LISINOPRIL 5 MG TABLET PO SCH (10:24)
[2021-10-26] MEDS: RIVAROXABAN 20 MG TABLET PO SCH (17:03)
[2021-10-26] MEDS: ROSUVASTATIN CA 20 MG TABLET PO SCH (21:59)
[2021-10-26] MEDS: NYSTATIN 100,000 UNIT/GM TOPICAL CREAM 15 GM TUBE TP SCH (22:11)
[2021-10-27] MEDS: LINEZOLID 600 MG PREMIX BAG 600 MG/300 ML BAG IVPB SCH ×2 (02:09→14:07)
[2021-10-27] MEDS: INSULIN SLIDING SCALE (NOVOLOG) 1 VIAL SQ SCH ×2 (06:33→11:26)
[2021-10-27 07:53] LABS: HEMATOCRIT 39.8 % (35.4-49); HEMOGLOBIN 13.4 GM/dL (11.7-16.9); MCH 28.8 pg (25.7-33.7); MCHC 33.7 g/dl (32.0-35.9); MEAN CELL VOLUME 85.4 fl (80-96); MEAN PLT VOLUME 8.6 fl (7.5-11.1); PLATELET COUNT 217 10^3/uL (134-434); RBC 4.66 M/mm3 (4.00-5.60); RDW 15.2 % (11.9-15.9); WHITE BLOOD COUNT 7.6 K/mm3 (4.0-10.0)
[2021-10-27 08:24] LABS: BLOOD UREA NITROGEN 14.4 mg/dL (7-18); CALCIUM 8.8 mg/dL (8.5-10.1)
[2021-10-27] MEDS: LISINOPRIL 5 MG TABLET PO SCH (09:39)
[2021-10-27] MEDS: NYSTATIN 100,000 UNIT/GM TOPICAL CREAM 15 GM TUBE TP SCH (09:40)
[2021-10-27 11:20] VITALS: BP 111/57; PULSE 65; TEMP 97.9
== END 2021-10-27 15:39 | disposition home or self-care (01) | DRG 603 ==
LOC: JER 10:15 → JERBED 12:06 → J4S 20:22
PROVIDERS: ADMIT Internal Medicine; ATTEND Internal Medicine
DX: L03.116 Cellulitis of left lower limb (principal); Z68.42 Body mass index [BMI] 45.0-49.9, adult; I10 Essential (primary) hypertension; E11.9 Type 2 diabetes mellitus without complications; E66.01 Morbid (severe) obesity due to excess calories; I89.0 Lymphedema, not elsewhere classified; M79.89 Other specified soft tissue disorders; B35.3 Tinea pedis; B35.1 Tinea unguium; Z88.1 Allergy status to other antibiotic agents; Z86.718 Personal history of other venous thrombosis and embolism
CPT/HCPCS: 36415; 73590-TC-LT-FY; 73610-TC-LT-FY; 73630-TC-LT; 80048; 80053; 82962; 83735; 84100; 85025; 85027; 85610; 85730; 87040; 93005; 93010; 93926-TC; 93971-TC; 99285-25; C9803; U0003; U0005

== ENCOUNTER 2023-02-25 15:17 | Inpatient (IN) | payer BC, OTHER ==
[2023-02-25 15:25] VITALS: BMI 53.2
[2023-02-25 16:33] LABS: VENOUS BASE EXCESS 4.8 mmol/L (-2-2); VENOUS O2 SATURATION 95.1 % (70-80); VENOUS PCO2 63.1 mmHg (38-52); VENOUS PH 7.333 (7.310-7.410)
[2023-02-25 16:35] LABS: INR 1.15 (0.83-1.09); PROTHROMBIN TIME (PATIENT) 13.3 SEC (9.7-13.0)
[2023-02-25 16:38] LABS: ACTIVATED PTT 36.1 SECONDS (25.2-36.5)
[2023-02-25 16:45] LABS: MAGNESIUM 2.2 mg/dL (1.8-2.4)
[2023-02-25 16:53] LABS: BASO % 0.9 % (0-2.0); EOS % 3.2 % (0-4.5); HEMATOCRIT 43.6 % (35.4-49); HEMOGLOBIN 14.1 GM/dL (11.7-16.9); LYMPH % 19.5 % (8-40); MCH 26.7 pg (25.7-33.7); MCHC 32.4 g/dl (32.0-35.9); MEAN CELL VOLUME 82.5 fl (80-96); MEAN PLT VOLUME 8.3 fl (7.5-11.1); MONO % 13.2 % (3.8-10.2); N-TERMINAL BNP 228.7 pg/ml (5-125); NEUT % 63.2 % (42.8-82.8); PLATELET COUNT 216 10^3/uL (134-434); RBC 5.28 M/mm3 (4.00-5.60); RDW 15.9 % (11.9-15.9); WHITE BLOOD COUNT 11.7 K/mm3 (4.0-10.0)
[2023-02-25 17:29] LABS: POTASSIUM 3.8 mmol/L (3.5-5.1)
[2023-02-25 17:31] LABS: BLOOD UREA NITROGEN 17.7 mg/dL (7-18); CALCIUM 9.2 mg/dL (8.5-10.1)
[2023-02-25 17:36] LABS: BILIRUBIN,TOTAL 0.3 mg/dL (0.2-1); TOT PROT 6.3 g/dl (6.4-8.2)
[2023-02-26] MEDS ORDERED: FUROSEMIDE 40 MG TABLET (FP) PO ONE (00:33)
[2023-02-26] MEDS: PANTOPRAZOLE 40 MG TABLET PO SCH (09:55)
[2023-02-26] MEDS: BUDESONIDE/FORMETEROL FUMARATE 80/4.5 mcg INHALER IH SCH ×2 (09:55→22:15)
[2023-02-26] MEDS: RIVAROXABAN 20 MG TABLET PO SCH (18:11)
[2023-02-26] MEDS: metFORMIN HCL 500 MG TABLET (FP) PO SCH (18:11)
[2023-02-26] MEDS: ROSUVASTATIN CA 20 MG TABLET PO SCH (22:14)
[2023-02-27] MEDS: metFORMIN HCL 500 MG TABLET (FP) PO SCH ×2 (06:25→17:37)
[2023-02-27 06:58] LABS: BASO % 0.6 % (0-2.0); EOS % 3.5 % (0-4.5); HEMATOCRIT 44.3 % (35.4-49); HEMOGLOBIN 14.1 GM/dL (11.7-16.9); LYMPH % 22.7 % (8-40); MCH 27.1 pg (25.7-33.7); MCHC 31.8 g/dl (32.0-35.9); MEAN CELL VOLUME 85.2 fl (80-96); MEAN PLT VOLUME 8.6 fl (7.5-11.1); MONO % 12.7 % (3.8-10.2); NEUT % 60.5 % (42.8-82.8); PLATELET COUNT 215 10^3/uL (134-434); RDW 15.8 % (11.9-15.9); WHITE BLOOD COUNT 9.4 K/mm3 (4.0-10.0)
[2023-02-27 07:14] LABS: POTASSIUM 4.5 mmol/L (3.5-5.1)
[2023-02-27 07:17] LABS: CALCIUM 8.8 mg/dL (8.5-10.1)
[2023-02-27 07:18] LABS: BLOOD UREA NITROGEN 13.2 mg/dL (7-18)
[2023-02-27 07:21] LABS: CREATININE 1.2 mg/dL (0.55-1.3)
[2023-02-27] MEDS: PANTOPRAZOLE 40 MG TABLET PO SCH (09:25)
[2023-02-27] MEDS: HYDROCHLOROTHIAZIDE 25 MG TABLET (FP) PO SCH (09:25)
[2023-02-27] MEDS: metoPROLOL SUCCINATE 25 MG TAB.SR.24H (FP) PO SCH (09:25)
[2023-02-27] MEDS: LISINOPRIL 5 MG TABLET PO SCH (09:26)
[2023-02-27] MEDS: RIVAROXABAN 20 MG TABLET PO SCH (17:37)
[2023-02-27] MEDS: ROSUVASTATIN CA 20 MG TABLET PO SCH (21:30)
[2023-02-27] MEDS: BUDESONIDE/FORMETEROL FUMARATE 80/4.5 mcg INHALER IH SCH (22:53)
[2023-02-28] MEDS: metFORMIN HCL 500 MG TABLET (FP) PO SCH (07:07)
[2023-02-28] MEDS: metoPROLOL SUCCINATE 25 MG TAB.SR.24H (FP) PO SCH (09:54)
[2023-02-28] MEDS: HYDROCHLOROTHIAZIDE 25 MG TABLET (FP) PO SCH (09:55)
[2023-02-28] MEDS: PANTOPRAZOLE 40 MG TABLET PO SCH (09:55)
[2023-02-28] MEDS: LISINOPRIL 5 MG TABLET PO SCH (09:55)
[2023-02-28 11:27] VITALS: BP 122/75; PULSE 77; RESP 16; TEMP 98.2
== END 2023-02-28 13:55 | disposition home or self-care (01) | DRG 205 ==
LOC: JER 15:17 → JERBED 19:23 → J2W 21:46
PROVIDERS: ADMIT Family Medicine; ATTEND Family Medicine
DX: E66.2 Morbid (severe) obesity with alveolar hypoventilation (principal); J96.21 Acute and chronic respiratory failure with hypoxia; J96.22 Acute and chronic respiratory failure with hypercapnia; Z68.43 Body mass index [BMI] 50.0-59.9, adult; I44.7 Left bundle-branch block, unspecified; I10 Essential (primary) hypertension; E78.5 Hyperlipidemia, unspecified; Z86.718 Personal history of other venous thrombosis and embolism; Z79.01 Long term (current) use of anticoagulants; I87.8 Other specified disorders of veins; I89.0 Lymphedema, not elsewhere classified; Z79.84 Long term (current) use of oral hypoglycemic drugs; E11.51 Type 2 diabetes mellitus with diabetic peripheral angiopathy without gangrene; E11.622 Type 2 diabetes mellitus with other skin ulcer
CPT/HCPCS: 0241U-QW; 36415; 71045-TC-FY; 71250-TC; 80048; 80053; 82803; 82962; 83605; 83735; 83880; 84484; 85025; 85379; 85610; 85730; 86850; 86900; 86901; 87040; 93005; 93010; 93306-TC; 93970-TC; 94660; 94761; 99285-25

== ENCOUNTER 2023-03-17 10:33 | Observation (INO) | payer OTHER ==
[2023-03-17 10:42] VITALS: BMI 54.0
[2023-03-17] MEDS ORDERED: SODIUM CHLORIDE 0.9% 500 ML INFUS.BAG IV ONE (12:06)
[2023-03-17 12:26] LABS: BASO % 1.2 % (0-2.0); EOS % 2.5 % (0-4.5); HEMATOCRIT 45.3 % (35.4-49); LYMPH % 20.3 % (8-40); MCH 25.5 pg (25.7-33.7); MEAN CELL VOLUME 82.5 fl (80-96); MEAN PLT VOLUME 9.1 fl (7.5-11.1); MONO % 11.5 % (3.8-10.2); NEUT % 64.5 % (42.8-82.8); PLATELET COUNT 265 10^3/uL (134-434); RBC 5.49 M/mm3 (4.00-5.60); RDW 15.7 % (11.9-15.9); WHITE BLOOD COUNT 9.8 K/mm3 (4.0-10.0)
[2023-03-17 12:31] LABS: VENOUS BASE EXCESS 4.2 mmol/L (-2-2); VENOUS PCO2 58.5 mmHg (38-52); VENOUS PH 7.35 (7.310-7.410)
[2023-03-17 12:38] LABS: INR 2.04 (0.83-1.09); PROTHROMBIN TIME (PATIENT) 23.5 SEC (9.7-13.0)
[2023-03-17 12:46] LABS: POTASSIUM 3.9 mmol/L (3.5-5.1)
[2023-03-17 12:48] LABS: ALBUMIN 3.2 g/dl (3.4-5.0); CALCIUM 9.7 mg/dL (8.5-10.1)
[2023-03-17 12:49] LABS: BLOOD UREA NITROGEN 14.4 mg/dL (7-18); MAGNESIUM 2.4 mg/dL (1.8-2.4)
[2023-03-17 12:51] LABS: CREATININE 0.9 mg/dL (0.55-1.3)
[2023-03-17 12:53] LABS: BILIRUBIN,TOTAL 0.4 mg/dL (0.2-1); PHOSPHOROUS 3.8 mg/dL (2.5-4.9); TOT PROT 6.5 g/dl (6.4-8.2)
[2023-03-17 12:56] LABS: N-TERMINAL BNP 83.6 pg/ml (5-125)
[2023-03-17] MEDS ORDERED: ALBUTEROL SO4 HFA INHALER IH PRN (18:02)
[2023-03-17] MEDS: RIVAROXABAN 20 MG TABLET PO SCH (20:01)
[2023-03-17] MEDS: BUDESONIDE/FORMETEROL FUMARATE 160/4.5 mcg INHALER IH SCH (22:36)
[2023-03-18] MEDS: metoPROLOL SUCCINATE 25 MG TAB.SR.24H (FP) PO SCH (10:00)
[2023-03-18] MEDS: HYDROCHLOROTHIAZIDE 25 MG TABLET (FP) PO SCH (10:01)
[2023-03-18] MEDS: BUDESONIDE/FORMETEROL FUMARATE 160/4.5 mcg INHALER IH SCH ×2 (10:02→21:26)
[2023-03-18 13:40] LABS: PH,URINE 5.5 (5.0-8.0); URINE APPEARANCE CLEAR; URINE BILIRUBIN NEGATIVE (NEGATIVE); URINE COLOR YELLOW; URINE GLUCOSE (UA) NEGATIVE (NEGATIVE); URINE KETONE NEGATIVE (NEGATIVE); URINE LEUK ESTERASE NEGATIVE (NEGATIVE); URINE NITRITE NEGATIVE (NEGATIVE); URINE PROTEIN NEGATIVE (NEGATIVE); URINE UROBILINOGEN 0.2 mg/dL (0.2-1.0)
[2023-03-18] MEDS: RIVAROXABAN 20 MG TABLET PO SCH (17:33)
[2023-03-18 18:06] LABS: ARTERIAL BLD GAS O2 SATURATION 89.3 % (95-98); ARTERIAL BLOOD GAS BASE EXCESS 4.3 mmol/L (-2-2); ARTERIAL BLOOD GAS PO2 58.4 mmHg (80-100); ARTERIAL BLOOD GAS pH 7.375 (7.350-7.450)
[2023-03-18 18:08] LABS: ALLENS TEST POSITIVE
[2023-03-18] MEDS: ROSUVASTATIN CA 10 MG TABLET PO SCH (21:25)
[2023-03-19] MEDS: metFORMIN HCL 500 MG TABLET (FP) PO SCH (06:18)
[2023-03-19 09:27] LABS: BASO % 0.8 % (0-2.0); EOS % 3.4 % (0-4.5); HEMATOCRIT 43.8 % (35.4-49); HEMOGLOBIN 14.1 GM/dL (11.7-16.9); LYMPH % 17.6 % (8-40); MCH 26.2 pg (25.7-33.7); MCHC 32.3 g/dl (32.0-35.9); MEAN CELL VOLUME 80.9 fl (80-96); MEAN PLT VOLUME 8.4 fl (7.5-11.1); MONO % 8.3 % (3.8-10.2); NEUT % 69.9 % (42.8-82.8); PLATELET COUNT 239 10^3/uL (134-434); RBC 5.41 M/mm3 (4.00-5.60); RDW 15.9 % (11.9-15.9); WHITE BLOOD COUNT 7.5 K/mm3 (4.0-10.0)
[2023-03-19] MEDS: BUDESONIDE/FORMETEROL FUMARATE 160/4.5 mcg INHALER IH SCH ×2 (09:34→22:33)
[2023-03-19] MEDS: metoPROLOL SUCCINATE 25 MG TAB.SR.24H (FP) PO SCH (09:34)
[2023-03-19] MEDS: HYDROCHLOROTHIAZIDE 25 MG TABLET (FP) PO SCH (09:34)
[2023-03-19 09:49] LABS: POTASSIUM 3.8 mmol/L (3.5-5.1)
[2023-03-19 09:56] LABS: CALCIUM 9.3 mg/dL (8.5-10.1)
[2023-03-19 09:57] LABS: BLOOD UREA NITROGEN 14.6 mg/dL (7-18)
[2023-03-19] MEDS: ROSUVASTATIN CA 10 MG TABLET PO SCH (22:22)
[2023-03-19] MEDS: RIVAROXABAN 20 MG TABLET PO SCH (22:32)
[2023-03-20] MEDS: metFORMIN HCL 500 MG TABLET (FP) PO SCH (06:03)
[2023-03-20] MEDS: HYDROCHLOROTHIAZIDE 25 MG TABLET (FP) PO SCH (10:45)
[2023-03-20] MEDS: BUDESONIDE/FORMETEROL FUMARATE 160/4.5 mcg INHALER IH SCH (10:45)
[2023-03-20] MEDS: metoPROLOL SUCCINATE 25 MG TAB.SR.24H (FP) PO SCH (10:45)
[2023-03-20 11:56] VITALS: BP 116/72; PULSE 71; RESP 19; TEMP 97.9
== END 2023-03-20 11:41 | disposition home or self-care (01) ==
LOC: JER 10:33 → UNDOADMOB 16:31 → JERBED 16:31 → OBSVTOIN 17:54 → INTOOBSV 17:54 → J6S 23:36 → JERBED 23:36 → J6S 03-20 09:43
PROVIDERS: ADMIT Family Medicine; ATTEND Family Medicine
PROC: 3E0337Z Introduction of Electrolytic and Water Balance Substance into Peripheral Vein, Percutaneous Approach (ICD-10-PCS; principal; 2023-03-20)
DX: J96.01 Acute respiratory failure with hypoxia (principal); E66.2 Morbid (severe) obesity with alveolar hypoventilation; Z68.43 Body mass index [BMI] 50.0-59.9, adult; I10 Essential (primary) hypertension; E78.5 Hyperlipidemia, unspecified; E11.9 Type 2 diabetes mellitus without complications; Z79.01 Long term (current) use of anticoagulants; I89.0 Lymphedema, not elsewhere classified; Z88.8 Allergy status to other drugs, medicaments and biological substances; Z88.0 Allergy status to penicillin; Z99.81 Dependence on supplemental oxygen
CPT/HCPCS: 0241U-QW; 36415; 36600; 70450-TC; 71045-TC-FY; 71275-TC; 80048; 80053; 81003; 82803; 82962; 83735; 83880; 84100; 84484; 85025; 85610; 85730; 86850; 86900; 86901; 87077; 87081; 87086; 93005; 93010; 94660; 94761; 96360; 99285-25; G0378; Q9967

== ENCOUNTER 2023-09-12 19:32 | Inpatient (IN) | payer OTHER ==
[2023-09-12 20:42] LABS: VENOUS BASE EXCESS 0.4 mmol/L (-2-2); VENOUS O2 SATURATION 92.3 % (70-80); VENOUS PH 7.252 (7.310-7.410)
[2023-09-12 20:52] LABS: INR 1.59 (0.83-1.09); PROTHROMBIN TIME (PATIENT) 18.4 SEC (9.7-13.0)
[2023-09-12 20:55] LABS: ACTIVATED PTT 36.7 SECONDS (25.2-36.5)
[2023-09-12 20:57] LABS: POTASSIUM 3.9 mmol/L (3.5-5.1)
[2023-09-12 21:00] LABS: ALBUMIN 2.9 g/dl (3.4-5.0); BLOOD UREA NITROGEN 20.9 mg/dL (7-18)
[2023-09-12 21:05] LABS: BILIRUBIN,TOTAL 0.3 mg/dL (0.2-1); TOT PROT 6.4 g/dl (6.4-8.2)
[2023-09-12 21:23] LABS: BASO % 0.6 % (0-2.0); EOS % 1.8 % (0-4.5); HEMATOCRIT 46.8 % (35.4-49); HEMOGLOBIN 14.2 GM/dL (11.7-16.9); LYMPH % 15.5 % (8-40); MCHC 30.4 g/dl (32.0-35.9); MEAN CELL VOLUME 78.9 fl (80-96); MEAN PLT VOLUME 8.2 fl (7.5-11.1); NEUT % 69.1 % (42.8-82.8); PLATELET COUNT 242 10^3/uL (134-434); RBC 5.93 M/mm3 (4.00-5.60); RDW 18.4 % (11.9-15.9); WHITE BLOOD COUNT 11.2 K/mm3 (4.0-10.0)
[2023-09-12] MEDS ORDERED: FUROSEMIDE 40 MG TABLET (FP) PO ONE (23:14)
[2023-09-12] MEDS ORDERED: metoPROLOL SUCCINATE 25 MG TAB.SR.24H (FP) PO ONE ×2 (23:15→23:17)
[2023-09-12] MEDS ORDERED: ALBUTEROL SO4 HFA INHALER IH PRN (23:15)
[2023-09-12] MEDS ORDERED: ROSUVASTATIN CA 20 MG TABLET PO ONE ×2 (23:15→23:17)
[2023-09-12] MEDS ORDERED: metFORMIN HCL 500 MG TABLET (FP) PO ONE ×2 (23:15→23:22)
[2023-09-12] MEDS ORDERED: HYDROCHLOROTHIAZIDE 25 MG TABLET (FP) PO ONE (23:17)
[2023-09-13] MEDS ORDERED: FUROSEMIDE 40 MG TABLET (FP) ONE (01:31)
[2023-09-13] MEDS ORDERED: ROSUVASTATIN CA 20 MG TABLET ONE (01:31)
[2023-09-13] MEDS ORDERED: metFORMIN HCL 500 MG TABLET (FP) ONE (01:31)
[2023-09-13] MEDS ORDERED: metoPROLOL SUCCINATE 25 MG TAB.SR.24H (FP) PO ONE ×2 (01:31→11:00)
[2023-09-13] MEDS ORDERED: LISINOPRIL 5 MG TABLET PO SCH (10:00)
[2023-09-13] MEDS ORDERED: HYDROCHLOROTHIAZIDE 12.5 MG CAPSULE (FP) PO SCH (10:00)
[2023-09-13] MEDS ORDERED: HYDROCHLOROTHIAZIDE 25 MG TABLET (FP) ONE (11:00)
[2023-09-13] MEDS ORDERED: LISINOPRIL 5 MG TABLET ONE (11:00)
[2023-09-13] MEDS: HYDROCHLOROTHIAZIDE 25 MG TABLET (FP) PO SCH (11:09)
[2023-09-13] MEDS: LISINOPRIL 5 MG TABLET PO SCH (11:09)
[2023-09-13] MEDS: BUDESONIDE/FORMETEROL FUMARATE 160/4.5 mcg INHALER IH SCH ×2 (11:09→22:25)
[2023-09-13] MEDS: metoPROLOL SUCCINATE 25 MG TAB.SR.24H (FP) PO SCH (11:10)
[2023-09-13 14:17] LABS: BASO % 0.3 % (0-2.0); EOS % 0.6 % (0-4.5); HEMOGLOBIN 13.6 GM/dL (11.7-16.9); LYMPH % 12.8 % (8-40); MCH 24.1 pg (25.7-33.7); MCHC 29.5 g/dl (32.0-35.9); MEAN CELL VOLUME 81.5 fl (80-96); MONO % 11.8 % (3.8-10.2); NEUT % 74.5 % (42.8-82.8); PLATELET COUNT 246 10^3/uL (134-434); RBC 5.64 M/mm3 (4.00-5.60); RDW 18.7 % (11.9-15.9); WHITE BLOOD COUNT 12.3 K/mm3 (4.0-10.0)
[2023-09-13] MEDS: FUROSEMIDE 40 MG/4 ML INJECTABLE VIAL IVPUSH SCH (14:22)
[2023-09-13 14:45] LABS: POTASSIUM 4.3 mmol/L (3.5-5.1)
[2023-09-13 14:48] LABS: ALBUMIN 2.9 g/dl (3.4-5.0); BLOOD UREA NITROGEN 28.1 mg/dL (7-18)
[2023-09-13 14:51] LABS: CREATININE 1.3 mg/dL (0.55-1.3)
[2023-09-13 14:52] LABS: TOT PROT 6.4 g/dl (6.4-8.2)
[2023-09-13 14:53] LABS: BILIRUBIN,TOTAL 0.5 mg/dL (0.2-1)
[2023-09-13] MEDS: RIVAROXABAN 20 MG TABLET PO SCH (18:06)
[2023-09-14 01:03] VITALS: BMI 53.7
[2023-09-14 06:59] LABS: BASO % 0.4 % (0-2.0); EOS % 1.2 % (0-4.5); HEMATOCRIT 44.7 % (35.4-49); HEMOGLOBIN 13.4 GM/dL (11.7-16.9); MCH 24.5 pg (25.7-33.7); MCHC 30.1 g/dl (32.0-35.9); MEAN CELL VOLUME 81.5 fl (80-96); MEAN PLT VOLUME 8.3 fl (7.5-11.1); MONO % 12.8 % (3.8-10.2); NEUT % 70.6 % (42.8-82.8); PLATELET COUNT 220 10^3/uL (134-434); RBC 5.48 M/mm3 (4.00-5.60); RDW 18.7 % (11.9-15.9); WHITE BLOOD COUNT 10.4 K/mm3 (4.0-10.0)
[2023-09-14 07:06] LABS: POTASSIUM 4.3 mmol/L (3.5-5.1)
[2023-09-14 07:17] LABS: BLOOD UREA NITROGEN 31.5 mg/dL (7-18); CALCIUM 8.5 mg/dL (8.5-10.1)
[2023-09-14] MEDS: FUROSEMIDE 40 MG/4 ML INJECTABLE VIAL IVPUSH SCH (11:10)
[2023-09-14] MEDS: LISINOPRIL 5 MG TABLET PO SCH (11:10)
[2023-09-14] MEDS: BUDESONIDE/FORMETEROL FUMARATE 160/4.5 mcg INHALER IH SCH ×2 (11:11→21:58)
[2023-09-14] MEDS: HYDROCHLOROTHIAZIDE 25 MG TABLET (FP) PO SCH (11:11)
[2023-09-14] MEDS: metoPROLOL SUCCINATE 25 MG TAB.SR.24H (FP) PO SCH (11:11)
[2023-09-14] MEDS: RIVAROXABAN 20 MG TABLET PO SCH (17:47)
[2023-09-15 06:59] LABS: BASO % 0.9 % (0-2.0); EOS % 0.9 % (0-4.5); HEMATOCRIT 43.8 % (35.4-49); HEMOGLOBIN 12.9 GM/dL (11.7-16.9); LYMPH % 13.6 % (8-40); MCH 23.9 pg (25.7-33.7); MCHC 29.4 g/dl (32.0-35.9); MEAN CELL VOLUME 81.1 fl (80-96); MEAN PLT VOLUME 8.6 fl (7.5-11.1); MONO % 13.3 % (3.8-10.2); NEUT % 71.3 % (42.8-82.8); PLATELET COUNT 222 10^3/uL (134-434); WHITE BLOOD COUNT 11.6 K/mm3 (4.0-10.0)
[2023-09-15 07:13] LABS: POTASSIUM 5.1 mmol/L (3.5-5.1)
[2023-09-15 07:15] LABS: CALCIUM 8.6 mg/dL (8.5-10.1)
[2023-09-15 07:16] LABS: BLOOD UREA NITROGEN 39.2 mg/dL (7-18)
[2023-09-15 07:19] LABS: CREATININE 1.5 mg/dL (0.55-1.3)
[2023-09-15] MEDS: BUDESONIDE/FORMETEROL FUMARATE 160/4.5 mcg INHALER IH SCH ×2 (10:00→22:00)
[2023-09-15] MEDS: LISINOPRIL 5 MG TABLET PO SCH (10:06)
[2023-09-15] MEDS: metoPROLOL SUCCINATE 25 MG TAB.SR.24H (FP) PO SCH (10:07)
[2023-09-15] MEDS: HYDROCHLOROTHIAZIDE 25 MG TABLET (FP) PO SCH (10:17)
[2023-09-15] MEDS: FUROSEMIDE 40 MG/4 ML INJECTABLE VIAL IVPUSH SCH (10:17)
[2023-09-15 16:56] LABS: POTASSIUM 4.3 mmol/L (3.5-5.1)
[2023-09-15 16:57] LABS: CALCIUM 8.7 mg/dL (8.5-10.1)
[2023-09-15 16:58] LABS: BLOOD UREA NITROGEN 49.7 mg/dL (7-18)
[2023-09-15 17:01] LABS: CREATININE 1.6 mg/dL (0.55-1.3)
[2023-09-15] MEDS: RIVAROXABAN 20 MG TABLET PO SCH (18:11)
[2023-09-16 07:15] LABS: BASO % 0.4 % (0-2.0); HEMATOCRIT 42.9 % (35.4-49); HEMOGLOBIN 13.1 GM/dL (11.7-16.9); LYMPH % 11.5 % (8-40); MCH 24.4 pg (25.7-33.7); MCHC 30.5 g/dl (32.0-35.9); MONO % 15.7 % (3.8-10.2); NEUT % 71.4 % (42.8-82.8); PLATELET COUNT 190 10^3/uL (134-434); RBC 5.37 M/mm3 (4.00-5.60); RDW 18.2 % (11.9-15.9)
[2023-09-16] MEDS: metoPROLOL SUCCINATE 25 MG TAB.SR.24H (FP) PO SCH (10:53)
[2023-09-16] MEDS: HYDROCHLOROTHIAZIDE 25 MG TABLET (FP) PO SCH (10:53)
[2023-09-16] MEDS: FUROSEMIDE 40 MG/4 ML INJECTABLE VIAL IVPUSH SCH (10:53)
[2023-09-16] MEDS: LISINOPRIL 5 MG TABLET PO SCH (10:53)
[2023-09-16] MEDS: BUDESONIDE/FORMETEROL FUMARATE 160/4.5 mcg INHALER IH SCH ×2 (10:53→21:50)
[2023-09-16] MEDS ORDERED: ACETAMINOPHEN 325 MG TABLET (FP) PO PRN (17:08)
[2023-09-16] MEDS: RIVAROXABAN 20 MG TABLET PO SCH (17:49)
[2023-09-16] MEDS: PANTOPRAZOLE 40 MG TABLET PO SCH (17:49)
[2023-09-16] MEDS ORDERED: BUDESONIDE/FORMETEROL FUMARATE 160/4.5 mcg INHALER IH SCH (22:00)
[2023-09-17] MEDS: PANTOPRAZOLE 40 MG TABLET PO SCH (10:59)
[2023-09-17] MEDS: metoPROLOL SUCCINATE 25 MG TAB.SR.24H (FP) PO SCH (10:59)
[2023-09-17] MEDS: LISINOPRIL 5 MG TABLET PO SCH (10:59)
[2023-09-17] MEDS: BUDESONIDE/FORMETEROL FUMARATE 160/4.5 mcg INHALER IH SCH ×2 (11:01→21:44)
[2023-09-17] MEDS: FUROSEMIDE 40 MG/4 ML INJECTABLE VIAL IVPUSH SCH (11:06)
[2023-09-17] MEDS ORDERED: AMMONIUM LACTATE 12% LOTION 225 GM BOTTLE TP PRN (11:33)
[2023-09-17 11:35] LABS: POTASSIUM 4.4 mmol/L (3.5-5.1)
[2023-09-17 11:37] LABS: CALCIUM 8.5 mg/dL (8.5-10.1)
[2023-09-17 11:41] LABS: CREATININE 0.7 mg/dL (0.55-1.3)
[2023-09-17] MEDS: BACITRACIN ZINC 15 GM TUBE TOPICAL OINTMENT TP SCH (14:20)
[2023-09-17] MEDS: RIVAROXABAN 20 MG TABLET PO SCH (17:19)
[2023-09-18 07:59] LABS: CHLORIDE 93 mmol/L (98-107); POTASSIUM 4.2 mmol/L (3.5-5.1); SODIUM 140 mmol/L (136-145)
[2023-09-18 08:04] LABS: CALCIUM 8.7 mg/dL (8.5-10.1)
[2023-09-18 08:05] LABS: BLOOD UREA NITROGEN 19.2 mg/dL (7-18); GLUCOSE,RANDOM 93 mg/dL (74-106)
[2023-09-18 08:09] LABS: CREATININE 0.7 mg/dL (0.55-1.3)
[2023-09-18 08:12] LABS: ANION GAP 2 mmol/L (4-13); CO2 > 45 mmol/L (21-32)
[2023-09-18] MEDS: PANTOPRAZOLE 40 MG TABLET PO SCH (09:55)
[2023-09-18] MEDS: LISINOPRIL 5 MG TABLET PO SCH (09:55)
[2023-09-18] MEDS: BUDESONIDE/FORMETEROL FUMARATE 160/4.5 mcg INHALER IH SCH ×2 (09:55→22:35)
[2023-09-18] MEDS: FUROSEMIDE 40 MG/4 ML INJECTABLE VIAL IVPUSH SCH (09:55)
[2023-09-18] MEDS: BACITRACIN ZINC 15 GM TUBE TOPICAL OINTMENT TP SCH (09:55)
[2023-09-18] MEDS: metoPROLOL SUCCINATE 25 MG TAB.SR.24H (FP) PO SCH (09:55)
[2023-09-18] MEDS: RIVAROXABAN 20 MG TABLET PO SCH (19:00)
[2023-09-19 07:45] LABS: POTASSIUM 3.9 mmol/L (3.5-5.1)
[2023-09-19 07:56] LABS: BLOOD UREA NITROGEN 16.7 mg/dL (7-18)
[2023-09-19 07:59] LABS: CREATININE 0.6 mg/dL (0.55-1.3)
[2023-09-19] MEDS: PANTOPRAZOLE 40 MG TABLET PO SCH (10:26)
[2023-09-19] MEDS: LISINOPRIL 5 MG TABLET PO SCH (10:26)
[2023-09-19] MEDS: metoPROLOL SUCCINATE 25 MG TAB.SR.24H (FP) PO SCH (10:27)
[2023-09-19] MEDS: BUDESONIDE/FORMETEROL FUMARATE 160/4.5 mcg INHALER IH SCH ×2 (10:27→22:04)
[2023-09-19] MEDS: FUROSEMIDE 40 MG/4 ML INJECTABLE VIAL IVPUSH SCH (10:27)
[2023-09-19] MEDS: BACITRACIN ZINC 15 GM TUBE TOPICAL OINTMENT TP SCH (10:27)
[2023-09-19] MEDS: CLINDAMYCIN HCL 150 MG CAPSULE (FP) PO SCH ×2 (16:29→22:04)
[2023-09-19] MEDS: RIVAROXABAN 20 MG TABLET PO SCH (18:15)
[2023-09-20] MEDS: CLINDAMYCIN HCL 150 MG CAPSULE (FP) PO SCH ×3 (06:07→21:37)
[2023-09-20] MEDS: metoPROLOL SUCCINATE 25 MG TAB.SR.24H (FP) PO SCH (09:20)
[2023-09-20] MEDS: PANTOPRAZOLE 40 MG TABLET PO SCH (09:20)
[2023-09-20] MEDS: LISINOPRIL 5 MG TABLET PO SCH (09:20)
[2023-09-20] MEDS: BUDESONIDE/FORMETEROL FUMARATE 160/4.5 mcg INHALER IH SCH ×2 (09:21→21:37)
[2023-09-20] MEDS: BACITRACIN ZINC 15 GM TUBE TOPICAL OINTMENT TP SCH (09:22)
[2023-09-20] MEDS: RIVAROXABAN 20 MG TABLET PO SCH (18:24)
[2023-09-21] MEDS: CLINDAMYCIN HCL 150 MG CAPSULE (FP) PO SCH ×3 (05:56→21:24)
[2023-09-21] MEDS: metoPROLOL SUCCINATE 25 MG TAB.SR.24H (FP) PO SCH (10:33)
[2023-09-21] MEDS: LISINOPRIL 5 MG TABLET PO SCH (10:33)
[2023-09-21] MEDS: PANTOPRAZOLE 40 MG TABLET PO SCH (10:33)
[2023-09-21] MEDS: BUDESONIDE/FORMETEROL FUMARATE 160/4.5 mcg INHALER IH SCH ×2 (10:34→21:23)
[2023-09-21] MEDS: BACITRACIN ZINC 15 GM TUBE TOPICAL OINTMENT TP SCH (10:34)
[2023-09-21] MEDS: RIVAROXABAN 20 MG TABLET PO SCH (17:29)
[2023-09-22] MEDS: CLINDAMYCIN HCL 150 MG CAPSULE (FP) PO SCH ×2 (06:07→23:59)
[2023-09-22] MEDS: LISINOPRIL 5 MG TABLET PO SCH (10:29)
[2023-09-22] MEDS: metoPROLOL SUCCINATE 25 MG TAB.SR.24H (FP) PO SCH (10:29)
[2023-09-22] MEDS: PANTOPRAZOLE 40 MG TABLET PO SCH (10:29)
[2023-09-22] MEDS: BUDESONIDE/FORMETEROL FUMARATE 160/4.5 mcg INHALER IH SCH ×2 (11:06→23:59)
[2023-09-22] MEDS: BACITRACIN ZINC 15 GM TUBE TOPICAL OINTMENT TP SCH (11:07)
[2023-09-22 11:21] LABS: ARTERIAL BLD GAS O2 SATURATION 77.3 % (95-98); ARTERIAL BLOOD GAS PO2 47.6 mmHg (80-100); ARTERIAL BLOOD GAS pH 7.321 (7.350-7.450)
[2023-09-22 11:23] LABS: ALLENS TEST POSITIVE
[2023-09-22] MEDS: RIVAROXABAN 20 MG TABLET PO SCH (17:14)
[2023-09-23] MEDS: CLINDAMYCIN HCL 150 MG CAPSULE (FP) PO SCH ×3 (05:58→21:26)
[2023-09-23 06:35] LABS: ARTERIAL BLD GAS O2 SATURATION 76.3 % (95-98); ARTERIAL BLOOD GAS BASE EXCESS 11.1 mmol/L (-2-2); ARTERIAL BLOOD GAS PO2 46.2 mmHg (80-100)
[2023-09-23 06:45] LABS: ALLENS TEST POSITIVE
[2023-09-23 07:48] LABS: BASO % 0.7 % (0-2.0); EOS % 5.4 % (0-4.5); HEMATOCRIT 44.5 % (35.4-49); HEMOGLOBIN 13.2 GM/dL (11.7-16.9); MCH 24.1 pg (25.7-33.7); MCHC 29.7 g/dl (32.0-35.9); MEAN PLT VOLUME 8.4 fl (7.5-11.1); MONO % 11.6 % (3.8-10.2); NEUT % 67.3 % (42.8-82.8); PLATELET COUNT 177 10^3/uL (134-434); RBC 5.49 M/mm3 (4.00-5.60); RDW 18.8 % (11.9-15.9)
[2023-09-23 08:08] LABS: POTASSIUM 4.5 mmol/L (3.5-5.1)
[2023-09-23 08:09] LABS: CALCIUM 8.8 mg/dL (8.5-10.1)
[2023-09-23 08:10] LABS: BLOOD UREA NITROGEN 17.9 mg/dL (7-18)
[2023-09-23 08:13] LABS: CREATININE 0.7 mg/dL (0.55-1.3)
[2023-09-23] MEDS: metoPROLOL SUCCINATE 25 MG TAB.SR.24H (FP) PO SCH (10:02)
[2023-09-23] MEDS: LISINOPRIL 5 MG TABLET PO SCH (10:02)
[2023-09-23] MEDS: BACITRACIN ZINC 15 GM TUBE TOPICAL OINTMENT TP SCH (10:02)
[2023-09-23] MEDS: PANTOPRAZOLE 40 MG TABLET PO SCH (10:02)
[2023-09-23] MEDS: BUDESONIDE/FORMETEROL FUMARATE 160/4.5 mcg INHALER IH SCH ×2 (10:14→21:48)
[2023-09-23] MEDS: RIVAROXABAN 20 MG TABLET PO SCH (17:17)
[2023-09-24] MEDS: CLINDAMYCIN HCL 150 MG CAPSULE (FP) PO SCH ×3 (05:37→21:46)
[2023-09-24 06:57] LABS: ARTERIAL BLD GAS O2 SATURATION 93.2 % (95-98); ARTERIAL BLOOD GAS BASE EXCESS 9.6 mmol/L (-2-2); ARTERIAL BLOOD GAS PO2 80.7 mmHg (80-100); ARTERIAL BLOOD GAS pH 7.248 (7.350-7.450)
[2023-09-24 06:58] LABS: ALLENS TEST POSITIVE
[2023-09-24 07:27] LABS: BASO % 0.8 % (0-2.0); EOS % 5.3 % (0-4.5); HEMATOCRIT 44.2 % (35.4-49); HEMOGLOBIN 13.3 GM/dL (11.7-16.9); LYMPH % 15.1 % (8-40); MCH 24.7 pg (25.7-33.7); MCHC 30.2 g/dl (32.0-35.9); MEAN PLT VOLUME 8.5 fl (7.5-11.1); NEUT % 64.8 % (42.8-82.8); PLATELET COUNT 163 10^3/uL (134-434); RBC 5.39 M/mm3 (4.00-5.60); WHITE BLOOD COUNT 8.3 K/mm3 (4.0-10.0)
[2023-09-24 07:42] LABS: POTASSIUM 4.7 mmol/L (3.5-5.1)
[2023-09-24 07:45] LABS: CALCIUM 9.3 mg/dL (8.5-10.1)
[2023-09-24 07:46] LABS: BLOOD UREA NITROGEN 17.3 mg/dL (7-18)
[2023-09-24 07:49] LABS: CREATININE 0.7 mg/dL (0.55-1.3)
[2023-09-24] MEDS: metoPROLOL SUCCINATE 25 MG TAB.SR.24H (FP) PO SCH (10:58)
[2023-09-24] MEDS: LISINOPRIL 5 MG TABLET PO SCH (10:58)
[2023-09-24] MEDS: PANTOPRAZOLE 40 MG TABLET PO SCH (10:58)
[2023-09-24] MEDS: BUDESONIDE/FORMETEROL FUMARATE 160/4.5 mcg INHALER IH SCH ×2 (10:58→21:46)
[2023-09-24] MEDS: BACITRACIN ZINC 15 GM TUBE TOPICAL OINTMENT TP SCH (10:58)
[2023-09-24] MEDS: RIVAROXABAN 20 MG TABLET PO SCH (18:16)
[2023-09-25] MEDS: CLINDAMYCIN HCL 150 MG CAPSULE (FP) PO SCH ×2 (06:15→18:10)
[2023-09-25 07:26] LABS: POTASSIUM 4.5 mmol/L (3.5-5.1)
[2023-09-25 07:51] LABS: BLOOD UREA NITROGEN 15.8 mg/dL (7-18); CREATININE 0.7 mg/dL (0.55-1.3)
[2023-09-25 08:34] LABS: BASO % 0.5 % (0-2.0); EOS % 5.6 % (0-4.5); HEMATOCRIT 42.4 % (35.4-49); HEMOGLOBIN 12.7 GM/dL (11.7-16.9); LYMPH % 14.6 % (8-40); MCH 24.6 pg (25.7-33.7); MEAN CELL VOLUME 82.1 fl (80-96); MEAN PLT VOLUME 8.4 fl (7.5-11.1); MONO % 14.5 % (3.8-10.2); NEUT % 64.8 % (42.8-82.8); PLATELET COUNT 165 10^3/uL (134-434); RBC 5.17 M/mm3 (4.00-5.60); RDW 18.7 % (11.9-15.9); WHITE BLOOD COUNT 8.5 K/mm3 (4.0-10.0)
[2023-09-25] MEDS: metoPROLOL SUCCINATE 25 MG TAB.SR.24H (FP) PO SCH (11:06)
[2023-09-25] MEDS: PANTOPRAZOLE 40 MG TABLET PO SCH (11:06)
[2023-09-25] MEDS: LISINOPRIL 5 MG TABLET PO SCH (11:06)
[2023-09-25] MEDS: BUDESONIDE/FORMETEROL FUMARATE 160/4.5 mcg INHALER IH SCH ×2 (11:07→22:04)
[2023-09-25] MEDS: BACITRACIN ZINC 15 GM TUBE TOPICAL OINTMENT TP SCH (11:15)
[2023-09-25] MEDS: TIOTROPIUM BROMIDE 2.5 MCG (SPIRIVA) RESPIMAT INHALER IH SCH (16:36)
[2023-09-25] MEDS: RIVAROXABAN 20 MG TABLET PO SCH (18:09)
[2023-09-26] MEDS: CARVEDILOL 6.25 MG TABLET (FP) PO SCH ×2 (10:19→21:21)
[2023-09-26] MEDS: PANTOPRAZOLE 40 MG TABLET PO SCH (10:19)
[2023-09-26] MEDS: LISINOPRIL 5 MG TABLET PO SCH (10:19)
[2023-09-26] MEDS: BACITRACIN ZINC 15 GM TUBE TOPICAL OINTMENT TP SCH (10:20)
[2023-09-26] MEDS: BUDESONIDE/FORMETEROL FUMARATE 160/4.5 mcg INHALER IH SCH ×2 (10:20→21:21)
[2023-09-26] MEDS: TIOTROPIUM BROMIDE 2.5 MCG (SPIRIVA) RESPIMAT INHALER IH SCH (10:21)
[2023-09-26] MEDS: RIVAROXABAN 20 MG TABLET PO SCH (17:30)
[2023-09-27 07:40] LABS: POTASSIUM 4.2 mmol/L (3.5-5.1)
[2023-09-27 07:50] LABS: BLOOD UREA NITROGEN 14.2 mg/dL (7-18)
[2023-09-27 07:53] LABS: CREATININE 0.6 mg/dL (0.55-1.3)
[2023-09-27 08:09] VITALS: BP 111/68; PULSE 70; RESP 20; TEMP 97.1
[2023-09-27] MEDS: PANTOPRAZOLE 40 MG TABLET PO SCH (10:58)
[2023-09-27] MEDS: LISINOPRIL 5 MG TABLET PO SCH (10:58)
[2023-09-27] MEDS: CARVEDILOL 6.25 MG TABLET (FP) PO SCH (10:58)
[2023-09-27] MEDS: BUDESONIDE/FORMETEROL FUMARATE 160/4.5 mcg INHALER IH SCH (10:59)
[2023-09-27] MEDS: BACITRACIN ZINC 15 GM TUBE TOPICAL OINTMENT TP SCH (10:59)
[2023-09-27] MEDS: TIOTROPIUM BROMIDE 2.5 MCG (SPIRIVA) RESPIMAT INHALER IH SCH (10:59)
== END 2023-09-27 15:08 | DRG 291 ==
LOC: JER 19:32 → JERBED 23:32 → J4W 09-13 20:32
PROVIDERS: ADMIT Family Medicine; ATTEND Family Medicine
PROC: 0HBRXZZ Excision of Toe Nail, External Approach (ICD-10-PCS; principal; 2023-09-18)
PROC: 0HBRXZZ Excision of Toe Nail, External Approach (ICD-10-PCS; 2023-09-18)
PROC: 0HBRXZZ Excision of Toe Nail, External Approach (ICD-10-PCS; 2023-09-18)
PROC: 0HBRXZZ Excision of Toe Nail, External Approach (ICD-10-PCS; 2023-09-18)
PROC: 0HBRXZZ Excision of Toe Nail, External Approach (ICD-10-PCS; 2023-09-18)
PROC: 0HBRXZZ Excision of Toe Nail, External Approach (ICD-10-PCS; 2023-09-18)
PROC: 0HBRXZZ Excision of Toe Nail, External Approach (ICD-10-PCS; 2023-09-18)
PROC: 0HBRXZZ Excision of Toe Nail, External Approach (ICD-10-PCS; 2023-09-18)
PROC: 0HBRXZZ Excision of Toe Nail, External Approach (ICD-10-PCS; 2023-09-18)
PROC: 0HBRXZZ Excision of Toe Nail, External Approach (ICD-10-PCS; 2023-09-18)
DX: I11.0 Hypertensive heart disease with heart failure (principal); I50.33 Acute on chronic diastolic (congestive) heart failure; J96.21 Acute and chronic respiratory failure with hypoxia; J96.22 Acute and chronic respiratory failure with hypercapnia; Z68.43 Body mass index [BMI] 50.0-59.9, adult; L03.116 Cellulitis of left lower limb; L03.115 Cellulitis of right lower limb; E66.01 Morbid (severe) obesity due to excess calories; J44.9 Chronic obstructive pulmonary disease, unspecified; G47.33 Obstructive sleep apnea (adult) (pediatric); E11.9 Type 2 diabetes mellitus without complications; E87.70 Fluid overload, unspecified; E78.5 Hyperlipidemia, unspecified; S91.002A Unspecified open wound, left ankle, initial encounter; B35.1 Tinea unguium; L85.3 Xerosis cutis; Z22.322 Carrier or suspected carrier of Methicillin resistant Staphylococcus aureus; I89.0 Lymphedema, not elsewhere classified; X58.XXXA Exposure to other specified factors, initial encounter; Y93.9 Activity, unspecified; Y92.9 Unspecified place or not applicable; Y99.9 Unspecified external cause status; Z88.1 Allergy status to other antibiotic agents; Z99.81 Dependence on supplemental oxygen
CPT/HCPCS: 0241U-QW; 36415; 36600; 71045-TC-FY; 71275-TC; 80048; 80053; 82550; 82803; 82962; 83605; 83735; 83880; 84484; 85025; 85610; 85730; 86850; 86900; 86901; 87040; 87077; 87081; 93005; 93010; 93306-TC; 93970-TC; 94660; 94761; 97116-GP; 97163-GP; 99285-25; Q9967

== ENCOUNTER 2025-02-27 13:35 | Emergency (ER) | payer OTHER, MEDICARE ==
[2025-02-27 13:45] VITALS: TEMP 97.9; BMI 51.7
[2025-02-27] MEDS ORDERED: ACETAMINOPHEN 325 MG TABLET (FP) ONE (14:51)
[2025-02-27 14:55] LABS: ABSOLUTE IMMATURE GRANULOCYTES 0.09 x10^3/uL (0.0-0.031); BASOPHILS # 0.07 x10^3/uL (0.01-0.08); EOSINOPHIL % 3.3 % (0.8-7.0); EOSINOPHILS # 0.36 x10^3/uL (0.04-0.54); HEMATOCRIT 46.8 % (40.1-51.0); HEMOGLOBIN 14.4 g/dL (13.7-17.5); MCHC 30.8 g/dl (32.3-36.5); MEAN CELL VOLUME 85.2 fl (79.0-92.2); MEAN PLT VOLUME 9.8 fl (9.4-12.4); MONOCYTE # 1.27 x10^3/uL (0.30-0.82); MONOCYTE % 11.8 % (5.3-12.2); PLATELET COUNT 206 x10^3/uL (163-337); RDW 14.6 % (12.2-16.4)
[2025-02-27] MEDS: SODIUM CHLORIDE 0.9% 500 ML INFUS.BAG IV ONE (14:59)
[2025-02-27] MEDS: ACETAMINOPHEN 325 MG TABLET (FP) PO ONE (14:59)
[2025-02-27 15:10] LABS: INR 1.65 (0.83-1.09); PROTHROMBIN TIME (PATIENT) 18.1 SEC (9.7-13.0)
[2025-02-27 15:12] LABS: ACTIVATED PTT 39.5 SECONDS (25.2-36.5)
[2025-02-27 15:31] LABS: ALBUMIN 3.4 g/dl (3.4-5.0); BLOOD UREA NITROGEN 17.4 mg/dL (7-18); CALCIUM 9.7 mg/dL (8.5-10.1)
[2025-02-27 15:34] LABS: CREATININE 0.8 mg/dL (0.55-1.3)
[2025-02-27 15:36] LABS: BILIRUBIN,TOTAL 0.4 mg/dL (0.2-1); TOT PROT 6.7 g/dl (6.4-8.2)
[2025-02-27 16:23] VITALS: BP 116/84; PULSE 79; RESP 17
== END 2025-02-27 18:15 | disposition home or self-care (01) ==
LOC: JER 13:35
DX: I44.0 Atrioventricular block, first degree (principal); R42 Dizziness and giddiness; M25.551 Pain in right hip; G89.29 Other chronic pain
CPT/HCPCS: 36415; 71045-TC-FY; 73502-TC-RT-FY; 80053; 83735; 84484; 85025; 85610; 85730; 93005; 93010; 99285-25